=== PATIENT | female | born 1955 | race Caucasian/White ===

== ENCOUNTER 2017-04-26 01:03 | Inpatient (IN) | payer OTHER ==
--- NOTE | 2017-04-26 01:13 | PDOC ---
History of Present Illness - History of Present Illness Initial Comments: 04/26/17 01:[address] Sawyer. <Bobby Marquez - Last Filed: 04/26/17 01:30> <Mehnaz Erickson - Last Filed: 04/26/17 01:44> - General Stated Complaint: POSSIBLE STROKE Time Seen by Provider: 04/26/17 01:03 Past History <Bobby Marquez - Last Filed: 04/26/17 01:30> - Past Medical History Asthma: Yes Diabetes: Yes HTN: Yes Thyroid Disease: Yes (HYPO.) - Immunization History Td Vaccination: No TDAP Vaccination: No Immunization Up to Date: No - Suicide/Smoking/Psychosocial Hx Smoking History: Current some day smoker Number of Cigarettes Smoked Daily: 2 'Breaking Loose' booklet given: 02/10/15 Hx Alcohol Use: No Drug/Substance Use Hx: No Substance Use Type: None <Mehnaz Erickson - Last Filed: 04/26/17 01:44> - Past Medical History Allergies/Adverse Reactions: Allergies Allergy/AdvReac Type Severity Reaction Status Date / Time No Known Allergies Allergy Verified 04/26/17 01:14 Home Medications: Ambulatory Orders Atorvastatin Ca [Lipitor] 20 mg PO HS 01/29/17 Calcium (Oyster Shell) [Os-Malcolm 500Mg -] 500 mg PO DAILY 01/29/17 Canagliflozin [Invokana] 300 mg PO DAILY 01/29/17 Famotidine [Pepcid -] 40 mg PO DAILY 01/29/17 Gabapentin 600 mg PO TID 01/29/17 Ibuprofen 800 mg PO TID PRN 01/29/17 Lamotrigine 150 mg PO DAILY 01/29/17 Liraglutide [Victoza -] 0.6 mg SQ DAILY@0700 01/29/17 Loratadine 10 mg PO DAILY 01/29/17 Losartan Potassium 100 mg PO DAILY 01/29/17 Metoclopramide HCl 10 mg PO DAILY 01/29/17 Omeprazole 40 mg PO DAILY 01/29/17 Topiramate 50 mg PO TID 01/29/17 Tramadol HCl 50 mg PO Q6H #15 tablet MDD 6 01/29/17 Trazodone HCl 100 mg PO DAILY PRN 01/29/17 Venlafaxine HCl ER [Effexor Xr -] 150 mg PO DAILY 01/29/17 *Physical Exam - Vital Signs Last Vital Signs Temp Pulse Resp BP Pulse Ox 75 14 84/61 98 04/26/17 01:14 04/26/17 01:14 04/26/17 01:14 04/26/17 01:14 <Bobby Marquez - Last Filed: 04/26/17 01:30> ED Treatment Course - LABORATORY CBC & Chemistry Diagram: 04/26/17 01:31 04/26/17 01:31 - RADIOLOGY Radiology Studies Ordered: Category Date Time Status HEAD CT (STROKE) [CT] Stat CT Scan 04/26/17 01:03 Ordered <Mehnaz Erickson - Last Filed: 04/26/17 01:44>
[2017-04-26] MEDS ORDERED: SODIUM CHLORIDE 0.9% 1000 ML INFUS.BAG IV ONE (01:30)
[2017-04-26] MEDS ORDERED: METOCLOPRAMIDE HCL INJECTION 10 MG/2 ML VIAL IVPB ONE (01:36)
[2017-04-26 01:38] LABS: BASOPHIL 0.8 % (0-2.0); EOSINOPHIL 0.1 % (0-4.5); MCH 27.7 pg (25.7-33.7); MCHC 32.9 g/dl (32.0-36.0); MEAN CELL VOLUME 84.3 fl (80-96); MEAN PLT VOLUME 8.4 fl (7.5-11.1); NEUTROPHILS 46.4 % (42.8-82.8); PLATELET COUNT 222 K/MM3 (134-434); RDW 13.6 % (11.6-15.6); WHITE BLOOD COUNT 12.5 K/mm3 (4.0-10.0)
--- NOTE | 2017-04-26 01:42 | PDOC ---
History of Present Illness <Mehnaz Erickson - Last Filed: 04/26/17 04:57> - General History Source: Patient Exam Limitations: No Limitations - History of Present Illness Initial Comments: 04/26/17 01:57 The patient is a 61 y/o female with PMH HTN, HLD, DM, depression, who presents to the ED via EMS s/p syncopal episode. Patient fell asleep at around 11:30 last night. She woke up around 12:30 AM because her stomach was hurting. She went to the kitchen to drink milk, but does not remember anything after. Patient was then found unconscious on the floor by her son, who called in EMS. Patient is complaining of headaches, dizziness, slurred speech, dry mouth, and nausea on presentation. Patient denies head trauma, back pain, neck pain. Patient states she took 1 pill of Trazodone to fall asleep today. She states she had throbbing pain behind left eye at around 9:30 PM last night. Wednesday and Wednesday she spent the day at daughters house, and did not take her HTN medications. Patient denies chest pain, SOB, fever, chills, vomiting, diarrhea. Patient denies dysuria, frequency, hematuria. Patient denies sick contacts, recent travels. Patient denies drinking alcohol. She denies drug usage. She denies smoking cigarettes. <Bobby Marquez - Last Filed: 04/26/17 05:52> - General Chief Complaint: CVA/TIA Stated Complaint: POSSIBLE STROKE Time Seen by Provider: 04/26/17 01:03 Past History - Past Medical History Asthma: Yes Diabetes: Yes HTN: Yes Thyroid Disease: Yes (HYPO.) - Immunization History Td Vaccination: No TDAP Vaccination: No Immunization Up to Date: No - Suicide/Smoking/Psychosocial Hx Smoking History: Current some day smoker Have you smoked in the past 12 months: No Number of Cigarettes Smoked Daily: 2 Information on smoking cessation initiated: No 'Breaking Loose' booklet given: 02/10/15 Hx Alcohol Use: No Drug/Substance Use Hx: No Substance Use Type: None <Mehnaz Erickson - Last Filed: 04/26/17 04:57> <Bobby Marquez - Last Filed: 04/26/17 05:52> - Past Medical History Allergies/Adverse Reactions: Allergies Allergy/AdvReac Type Severity Reaction Status Date / Time No Known Allergies Allergy Verified 04/26/17 01:14 Home Medications: Ambulatory Orders Atorvastatin Ca [Lipitor] 20 mg PO HS 01/29/17 Calcium (Oyster Shell) [Os-Malcolm 500Mg -] 500 mg PO DAILY 01/29/17 Canagliflozin [Invokana] 300 mg PO DAILY 01/29/17 Famotidine [Pepcid -] 40 mg PO DAILY 01/29/17 Gabapentin 600 mg PO TID 01/29/17 Ibuprofen 800 mg PO TID PRN 01/29/17 Lamotrigine 150 mg PO DAILY 01/29/17 Liraglutide [Victoza -] 0.6 mg SQ DAILY@0700 01/29/17 Loratadine 10 mg PO DAILY 01/29/17 Losartan Potassium 100 mg PO DAILY 01/29/17 Metoclopramide HCl 10 mg PO DAILY 01/29/17 Omeprazole 40 mg PO DAILY 01/29/17 Topiramate 50 mg PO TID 01/29/17 Tramadol HCl 50 mg PO Q6H #15 tablet MDD 6 01/29/17 Trazodone HCl 100 mg PO DAILY PRN 01/29/17 Venlafaxine HCl ER [Effexor Xr -] 150 mg PO DAILY 01/29/17 Review of Systems - Review of Systems Able to Perform ROS?: Yes Comments:: 04/26/17 01:57 GENERAL/CONSTITUTIONAL: No fever or chills. No weakness. HEAD, EYES, EARS, NOSE AND THROAT: No change in vision. No ear pain or discharge. No sore throat. CARDIOVASCULAR: No chest pain or shortness of breath. RESPIRATORY: No cough, wheezing, or hemoptysis. GASTROINTESTINAL: + nausea No vomiting, diarrhea or constipation. GENITOURINARY: No dysuria, frequency, or change in urination. MUSCULOSKELETAL: No joint or muscle swelling or pain. No neck or back pain. SKIN: No rash NEUROLOGIC: + headache. + slurred speech. + loss of consciousness. No vertigo, or change in strength/sensation. ENDOCRINE: No increased thirst. No abnormal weight change. HEMATOLOGIC/LYMPHATIC: No anemia, easy bleeding, or history of blood clots. ALLERGIC/IMMUNOLOGIC: No hives or skin allergy. <Bobby Marquez - Last Filed: 04/26/17 05:52> *Physical Exam - Vital Signs Last Vital Signs Temp Pulse Resp BP Pulse Ox 75 14 84/61 98 04/26/17 01:14 04/26/17 01:14 04/26/17 01:14 04/26/17 01:14 <Mehnaz Erickson - Last Filed: 04/26/17 04:57> - Vital Signs Last Vital Signs Temp Pulse Resp BP Pulse Ox 75 14 84/61 98 04/26/17 01:14 04/26/17 01:14 04/26/17 01:14 04/26/17 01:14 - Physical Exam Comments: 04/26/17 01:59 GENERAL: Awake, alert, and fully oriented, in no acute distress HEAD: No signs of trauma EYES: EOMI, sclera anicteric, conjunctiva clear. Lateral nystagmus of her eyes. ENT: Patients tongue is very dry. Auricles normal inspection, hearing grossly normal, nares patent, oropharynx clear without exudates. NECK: Normal ROM, supple, no lymphadenopathy, JVD, or masses LUNGS: Breath sounds equal, clear to auscultation bilaterally. No wheezes, and no crackles HEART: Currently patient is very hypotensive. Systolic pressure of low 70s. no murmurs, rubs or gallops ABDOMEN: Soft, nontender, normoactive bowel sounds. No guarding, no rebound. No masses EXTREMITIES: Normal range of motion, no edema. No clubbing or cyanosis. No cords, erythema, or tenderness NEUROLOGICAL: On finger to nose exam: was slow and wobbly. Slurring speech a bit. Cranial nerves II through XII grossly intact. Normal gait SKIN: Warm, Dry, normal turgor, no rashes or lesions noted. <Bobby Marquez - Last Filed: 04/26/17 05:52> NIH Stroke Scale - Last Known Well Date/Time & Onset Date Last Known Well: 04/25/17 Time Last Known Well: 23:00 - Initial Evaluation Level of consciousness: Alert Ask patient the month and their age: Answers both correctly Ask patient to open & close eyes; make fist and let go: Obeys both correctly Best gaze (horizontal eye movement): Normal Visual field testing: No visual field loss Facial paresis (Show teeth/raise eyebrows/close eyes tight): Normal symmetrical movement Motor Function: Left Arm: Normal Motor Function: Right Arm: Normal (extends arm 90 (or 45) degrees for 10 seconds without drift Motor Function: Left Leg: Normal (extends leg 30 degrees for 5 seconds without drift) Motor Function: Right Leg: Normal (extends leg 30 degrees for 5 seconds without drift) Limb Ataxia: Present in two limbs Sensory(Use pinprick test arms,legs,trunk,face/side to side): Normal Best language (Describe picture, name items, read sentences): No Aphasia Dysarthria (read several words): Mild to moderate slurring of words Extinction and Inattention: No abnormality - Total Score NIH Stroke Scale Score: 3 <Mehnaz Erickson - Last Filed: 04/26/17 04:57> Critical Care Time/MDM Note - Medical Decision Making Note: 04/26/17 01:45 04/26/17 01:34 Patient Name: JULIAN CHAMPION THIS IS A PRELIMINARYREPORT FROM IMAGING PHARMACEUTICAL DEVELOPMENT TECHNICIAN EXAM: CT brain without contrast IMAGES: 406 INDICATION: Rule out CVA DATE OF SERVICE: 2017-04-26 01:04:09 COMPARISON: none FINDINGS: The ventricular system is midline and nondilated. The sulcal pattern is normal for the patient's age. There is no bleed, mass, extra-axial fluid collection or mass effect. No skull fracture or skull lesion is identified. Complete opacification of bilateral maxillary sinuses is consistent with severe sinusitis. The bilateral mastoid air cells are clear. IMPRESSION: No evidence of acute intracranial pathology. Severe bilateral maxillary sinusitis. THIS DOCUMENT HAS BEEN ELECTRONICALLY SIGNED Oscar Bertrand MD 04/26/2017 01:27 DARINEL Ashby Please call Imaging Sales Ledger Clerk [phone] ([phone]) with questions 04/26/17 01:42 I paged neuro; no response Dr. Stafford called back and we discussed that this is likely not a stroke. However, pt may have a cerebellar infarc affecting her balance I think. She certainly has cellulitis. She also has slurred speech which perhaps can be explained by her dry tongue. Pt was found on the floor in the ER her systolic pressure is low 70s after 1L IVF; After 2L Systolic is 90s. Pt may have vasovagaled or gone down due to dehydration. <Mehnaz Erickson - Last Filed: 04/26/17 04:57> - Medical Decision Making Note: 04/26/17 01:[address] Stafford at 1:30. Paged Dr. Stafford second call at 1:48. 04/26/17 02:[address] Stafford at 02:17. (Neuro on-call). 04/26/17 03:[address] Danny Robertson. 04/26/17 03:[address] Danny Robertson, second call. <Bobby Marquez - Last Filed: 04/26/17 05:52> Discharge Disposition - Discharge Dispostion Last Admission D/C Date: 07/24/99 Admit: Yes <Mehnaz Erickson - Last Filed: 04/26/17 04:57> <Bobby Marquez - Last Filed: 04/26/17 05:52> - Diagnosis Maxillary sinusitis, Slurring of speech, Dehydration, Hypotension, Syncope and collapse, Cerebrovascular accident (CVA) - Discharge Dispostion Condition at time of disposition: Guarded
[2017-04-26] MEDS ORDERED: METOCLOPRAMIDE HCL INJECTION 10 MG/2 ML VIAL ONE (01:59)
[2017-04-26 02:01] LABS: INR 1.04 (0.82-1.09); PROTHROMBIN TIME (PATIENT) 11.5 SEC (9.98-11.88)
[2017-04-26 02:02] LABS: ALBUMIN 3.2 g/dl (3.4-5.0); ANION GAP 12 (8-16); CALCIUM 8.1 mg/dL (8.5-10.1); CO2 21 mmol/L (21-32); CREATININE 1.2 mg/dL (0.55-1.02); GLUCOSE,RANDOM 115 mg/dL (74-106); SGOT/AST 13 U/L (15-37); SGPT/ALT 18 U/L (12-78)
[2017-04-26 02:04] LABS: ALK PHOS 77 U/L (45-117); BILIRUBIN,TOTAL 0.3 mg/dL (0.2-1.0); TOT PROT 5.9 g/dl (6.4-8.2)
[2017-04-26] MEDS ORDERED: MAGNESIUM SULF 50% (8.12 MEQ/2 ML-1 GM VIAL) IVPB ONE (02:23)
[2017-04-26] MEDS ORDERED: MAGNESIUM SULF 50% (8.12 MEQ/2 ML-1 GM VIAL) ONE (02:44)
[2017-04-26] MEDS ORDERED: KCL 10 MEQ IVPB 300 ML IVPB ONE (02:44)
[2017-04-26] MEDS ORDERED: KCL 10 MEQ IVPB 100 ML IVPB ONE (03:10)
[2017-04-26] MEDS: KCL 10 MEQ IVPB 100 ML IVPB SCH ×3 (03:12→06:16)
[2017-04-26 05:46] LABS: URINE MARIJUANA THC NEGATIVE ng/ml (CUTOFF=50)
[2017-04-26 06:53] VITALS: BMI 30.1
[2017-04-26] MEDS ORDERED: FLU VACCINE QUAD 60 MCG/0.5 ML (MDV 17-18) IM ONE (09:00)
[2017-04-26 09:19] LABS: BASOPHIL 0.4 % (0-2.0); EOSINOPHIL 0.1 % (0-4.5); MCH 27.1 pg (25.7-33.7); MCHC 32.2 g/dl (32.0-36.0); MEAN CELL VOLUME 84.4 fl (80-96); MEAN PLT VOLUME 8.5 fl (7.5-11.1); NEUTROPHILS 60.2 % (42.8-82.8); PLATELET COUNT 228 K/MM3 (134-434); RDW 13.9 % (11.6-15.6); WHITE BLOOD COUNT 11.4 K/mm3 (4.0-10.0)
[2017-04-26 09:47] LABS: ALBUMIN 3.2 g/dl (3.4-5.0); ANION GAP 6 (8-16); CHOLESTEROL 176 mg/dL (50-200); CO2 24 mmol/L (21-32); CREATININE 0.8 mg/dL (0.55-1.02); GLUCOSE,RANDOM 108 mg/dL (74-106); SGOT/AST 14 U/L (15-37); SGPT/ALT 18 U/L (12-78)
[2017-04-26 09:49] LABS: ALK PHOS 83 U/L (45-117); BILIRUBIN,TOTAL 0.2 mg/dL (0.2-1.0); CPK 125 IU/L (26-192); TOT PROT 6.2 g/dl (6.4-8.2); TROPONIN I < 0.02 ng/ml (0.00-0.05)
[2017-04-26 09:57] LABS: URINE APPEARANCE CLEAR; URINE BILIRUBIN NEGATIVE (NEGATIVE); URINE BLOOD NEGATIVE (NEGATIVE); URINE COLOR COLORLESS; URINE GLUCOSE (UA) 3+ (NEGATIVE); URINE KETONE NEGATIVE (NEGATIVE); URINE LEUK ESTERASE NEGATIVE (NEGATIVE); URINE NITRITE NEGATIVE (NEGATIVE); URINE PROTEIN NEGATIVE (NEGATIVE); URINE UROBILINOGEN NEGATIVE mg/dL (0.2-1.0)
--- NOTE | 2017-04-26 09:58 | CON.NEURO ---
Consult - History of Present Illness History of Present Illness: 61 y/o female with PMH HTN, HLD, DM, bipolar who presents to the ED via EMS s/p syncopal episode. Patient fell asleep at around 11:30 last night. She woke up around 12:30 AM because her stomach was hurting. She went to the kitchen to drink milk, but does not remember anything after. Patient was then found unconscious on the floor by her son, who called in EMS. Patient is complaining of headaches, dizziness, slurred speech, dry mouth, and nausea on presentation. Patient denies head trauma, back pain, neck pain. Patient states she took 1 pill of Trazodone to fall asleep today. She states she had throbbing pain behind left eye at around 9:30 PM last night. Wednesday and Wednesday she spent the day at [facility] house, and did not take her HTN medications. no hx of seziures, stakes trazodone and effexor. HD CT (-) - Alcohol/Substance Use Hx Alcohol Use: No - Smoking History Smoking history: Current some day smoker Have you smoked in the past 12 months: No Aproximately how many cigarettes per day: 2 Home Medications - Allergies Allergies/Adverse Reactions: Allergies Allergy/AdvReac Type Severity Reaction Status Date / Time No Known Allergies Allergy Verified 04/26/17 01:14 - Home Medications Home Medications: Ambulatory Orders Atorvastatin Ca [Lipitor] 20 mg PO HS 01/29/17 Calcium (Oyster Shell) [Os-Malcolm 500Mg -] 500 mg PO DAILY 01/29/17 Canagliflozin [Invokana] 300 mg PO DAILY 01/29/17 Famotidine [Pepcid -] 40 mg PO DAILY 01/29/17 Gabapentin 600 mg PO TID 01/29/17 Ibuprofen 800 mg PO TID PRN 01/29/17 Lamotrigine 150 mg PO DAILY 01/29/17 Liraglutide [Victoza -] 0.6 mg SQ DAILY@0700 01/29/17 Loratadine 10 mg PO DAILY 01/29/17 Losartan Potassium 100 mg PO DAILY 01/29/17 Metoclopramide HCl 10 mg PO DAILY 01/29/17 Omeprazole 40 mg PO DAILY 01/29/17 Topiramate 50 mg PO TID 01/29/17 Tramadol HCl 50 mg PO Q6H #15 tablet MDD 6 01/29/17 Trazodone HCl 100 mg PO DAILY PRN 01/29/17 Venlafaxine HCl ER [Effexor Xr -] 150 mg PO DAILY 01/29/17 Physical Exam-Neuro Vital Signs: Vital Signs Temperature 97.6 F 04/26/17 06:00 Pulse Rate 74 04/26/17 06:00 Respiratory Rate 18 04/26/17 06:00 Blood Pressure 96/61 04/26/17 06:00 O2 Sat by Pulse Oximetry (%) 98 04/26/17 05:57 Constitutional: Yes: Well Nourished, No Distress Neck: Yes: WNL Cardiovascular: Yes: Regular Rate and Rhythm Respiratory: Yes: CTA Bilaterally Labs: CBC, BMP 04/26/17 08:36 04/26/17 08:36 INR, PTT INR 1.04 (0.82-1.09) 04/26/17 01:31 - Neuro Exam Level Of Consciousness: Yes: Alert, Oriented to Person (EOMI, no facial, no dysrthria, no focal motor weakness, no drift, no ataxia , giat not tested; ) Imaging - Results Cat Scan: Report Reviewed, Image Reviewed Problem List - Problems (1) Hypotension Code(s): I95.9 - HYPOTENSION, UNSPECIFIED (2) Slurring of speech Code(s): R47.81 - SLURRED SPEECH (3) Syncope and collapse Code(s): R55 - SYNCOPE AND COLLAPSE Assessment/Plan 61 y/o female with PMH HTN, HLD, DM, bipolar admitted for syncope, noted to have low BP; ? RX intercations, tox (-); fu psych rec, nonfocal exam-- do not see evidence of new stroke event. BP remains low, FU orthostatics; consider cardiology input. Dr tSafford
[2017-04-26] MEDS: INSULIN SLIDING SCALE (NOVOLOG) 1 VIAL SQ SCH ×4 (09:59→21:01)
[2017-04-26] MEDS: lamoTRIgine 100 MG TABLET (FP) PO SCH (10:00)
[2017-04-26] MEDS: RANITIDINE HCL 150 MG TABLET (FP) PO SCH (10:01)
[2017-04-26] MEDS: PANTOPRAZOLE 40 MG TABLET (FP) PO SCH (10:01)
[2017-04-26] MEDS: ASPIRIN COATED 81 MG TABLET.EC PO SCH (10:01)
[2017-04-26] MEDS: HEPARIN NA (PORCINE) 5,000 UNITS/ML 1ML VIAL SQ SCH ×2 (10:02→21:01)
--- NOTE | 2017-04-26 10:31 | PN ---
Progress Note (short form) - Note Progress Note: ID consult dictated imp/reccd 61 year old female admitted from home after being found on floor unconscious by her son. SHe recalls getting up out of bed and having stomach pain. She went to the kitchen and got milk to drink -that is all she remembers. she is alert now and very sleepy denies fevers/chills no nausea or vomiting no diarrhea was well yesterday no chest pain no history of heart disease no change in her meds recent trip to the [facility] lives with her son denies nasal drainage or facial pain ct scan with bilateral maxillary sinusiits history of HTN- BP is low ua is negative blood cultures have been sent no documented fevers syncope of unclear etiology hypotension - ?cause, start fluids doubt sepsis very sleepy but was in ED all night, quite alert and approppriate when awoken bilateral maxillary sinusitis- suggest ENT evaluation, start unasyn neurology and cardiology evaluation reports HIV/Hep C negative reports recent admission 2 weeks ago to [facility] for cellulitis reports trip to [facility] February 23 Problem List - Problems (1) Syncope and collapse Code(s): R55 - SYNCOPE AND COLLAPSE (2) Maxillary sinusitis Code(s): J32.0 - CHRONIC MAXILLARY SINUSITIS
[2017-04-26] MEDS ORDERED: SODIUM CHLORIDE 250 ML IV ONE (10:35)
--- NOTE | 2017-04-26 10:53 | EKG ---
Test Reason : Blood Pressure : / mmHG Vent. Rate : 079 BPM Atrial Rate : 079 BPM P-R Int : 192 ms QRS Dur : 070 ms QT Int : 392 ms P-R-T Axes : 056 040 058 degrees QTc Int : 449 ms NORMAL SINUS RHYTHM NORMAL ECG WHEN COMPARED WITH ECG OF 26-APR-2017 01:17, NO SIGNIFICANT CHANGE WAS FOUND Confirmed by ADAMA ARMENDARIZ MD ([id number]) on 04/26/2017 10:53:13 AM Referred By: SABAS DONNELLY Confirmed By:ADAMA ARMENDARIZ MD
--- NOTE | 2017-04-26 11:29 | CONS ---
DATE OF CONSULTATION: HISTORY: This is a 61-year-old woman. She has a past medical history of hypertension, diabetes, and bipolar disorder. She is followed by Dr. Robertson as an outpatient. She notes yesterday ever she went to bed, got up because she had stomach pain, went to the kitchen to drink milk, and has no memory of what happened after that. Her son found her unconscious on the floor. He called EMS, and she was brought to the emergency room. She was alert but drowsy in the emergency room. She was noted to be hypotensive with a blood pressure of 84/61. She had a BUN 21, creatinine 1.2 with a potassium of 3.1. She was given IV fluids and electrolyte repletion. She had a head CT done to rule out stroke, but she was felt to have some slurred speech, and she was noted to have bilateral maxillary sinusitis. I was asked to see her. She is currently easily arousable, appropriate when aroused. Able to give history but very sleepy and falling back to sleep. She reports being well. She gives the history of having gone to the kitchen and having gotten some milk to drink. She denies any recent chills. She has no nausea or vomiting. She has no diarrhea. She has no chest pain. She has no history of heart disease. There have been no changes in her medications. She reports she recently had an outpatient MRI and was referred by Dr. Robertson to [facility], and she saw a neurologist there. There have been no changes in her medications recently. She does not recall any extra or skipped doses. She was on a recent trip to the [facility]. She lives with her son. She denies any nasal drainage or facial pain at this time. PAST MEDICAL HISTORY: Notable for a history of asthma, diabetes, hypertension, hypothyroidism. She has a history as well of depression, bipolar disorder. ALLERGIES: She has no known drug allergies. MEDICATIONS: As an outpatient include venlafaxine, losartan, vitamin D, Lamictal, loratadine, calcium, metoclopramide, ibuprofen, atorvastatin, amlodipine, gabapentin, Trazodone, Imvokana, Victoza, and pantoprazole. FAMILY HISTORY: Noncontributory. SOCIAL HISTORY: She smokes occasionally several cigarettes. She lives with her son. She was recently in the [facility]. She denies any sick contacts. REVIEW OF SYSTEMS: She denies headache, visual changes. She has no facial pain. She has no nasal discomfort or drainage or facial discomfort. She has no cough. PHYSICAL EXAMINATION: Vital Signs: Temperature 97.6, pulse 74, blood pressure 96/61, respiratory rate 18, weight 175. HEENT: She is normocephalic. Her eyes are anicteric. She has no pharyngitis. She has no thrush. Neck: Supple. Lungs: Clear to auscultation. Heart: Regular rate and rhythm. Abdomen: Soft and nontender. Extremities: Without edema. She has no rash. LABORATORIES: Notable this morning, she came in at 1:30. Labs repeated at 8 this morning reveals a white count 11.4, hemoglobin 12.2, platelets 228. Her BUN and creatinine are now BUN 18 and creatinine 0.8. They were BUN 20 and creatinine 1.2 on admission. Her potassium is 4. Urinalysis is 3+ glucose. Otherwise, negative. Urine toxicity is negative. Urine blood cultures were sent. Chest x-ray shows weak inspiratory effort. Head CT shows no evidence of acute intracranial pathology with complete opacification of the maxillary sinuses. In summary, this is a 61-year-old woman with syncope of unclear etiology, hypotension, again, of unclear etiology. Would continue fluids at this time. Doubt sepsis. She is very sleepy but was in the ER all night. She is quite alert and appropriate when awoken. Bilateral maxillary sinusitis. She denies any symptoms related to this, which is unusual, but I would suggest we have ENT evaluate her. Neurology and Cardiology to see as well. I spoke to her as well about HIV and hepatitis C testing both of which she has had as an outpatient, and she claims that she is HIV and hepatitis C negative. DEVANG PA M.D. [id number]
[2017-04-26] MEDS ORDERED: SODIUM CHLORIDE 1,000 ML IV ONE (11:40)
--- NOTE | 2017-04-26 11:53 | CON.PSY ---
Psychiatry Consult Chief Complaint: I have Bipolar I take lot of meds. I fell few times. - Previous Psychiatric Treatment Outpatient: Less than 6 mos ago Inpatient: One prior admission - Previous Substance Abuse Treatment Outpatient: None Inpatient: None - Reason for Previous Treatment Reason for Previous Treatment: Biploar Illness - Current Medications Current Medications: Active Medications Aspirin (Ecotrin -) 81 mg PO DAILY [facility] Last Admin: 04/26/17 10:01 Dose: 81 mg Atorvastatin Calcium (Lipitor -) 20 mg PO HS [facility] Gabapentin (Neurontin -) 600 mg PO TID [facility] Heparin Sodium (Porcine) (Heparin -) 5,000 unit SQ BID [facility] Last Admin: 04/26/17 10:02 Dose: 5,000 unit Ampicillin Sodium/Sulbactam (Sodium 1.5 gm/ Sodium Chloride) 100 mls @ 200 mls/ hr IVPB Q6H-IV [facility] Sodium Chloride (Normal Saline -) 1,000 mls @ 100 mls/hr IV ONCE ONE Stop: 04/26/17 21:39 Insulin Aspart (Novolog Vial Sliding Scale -) 1 vial SQ ACHS [facility] PRN Reason: Protocol Last Admin: 04/26/17 09:59 Dose: Not Given Lamotrigine (Lamictal -) 150 mg PO DAILY [facility] Last Admin: 04/26/17 10:00 Dose: 150 mg Pantoprazole Sodium (Protonix -) 40 mg PO DAILY [facility] Last Admin: 04/26/17 10:01 Dose: 40 mg Ranitidine HCl (Zantac -) 300 mg PO DAILY [facility] Last Admin: 04/26/17 10:01 Dose: 300 mg Topiramate (Topamax -) 50 mg PO TID [facility] Venlafaxine HCl (Effexor Xr -) 150 mg PO DAILY [facility] - Allergies Allergies: Allergies Allergy/AdvReac Type Severity Reaction Status Date / Time No Known Allergies Allergy Verified 04/26/17 01:14 - Current Living Status Usual Living Arrangement: With Significant Other - Current Mental Status Evaluation Appearance: Well Groomed Attitude: Cooperative - Affect Affect: Full Range Appropriateness: Appropriate to Content - Mood Mood: Euthymic - Speech/Language Expressive: Coherent - Psychomotor Activity Psychomotor Activity: Normal - Thought Process Thought Process: Intact - Thought Content Hallucinations: Absent Delusions: Absent - Self Perception Self Perception: No Impairment - Cognition Attention: Alert Orientation: Time Memory, Immediate Recall: Intact Memory, Short Term: 2/3 Memory, Remote with Promptin/3 - Concentration Serial Sevens Intact: No Simple Calculations Intact: No - Abstraction Proverb Interpretation: Intact Judgement: Intact - Insight Insight: Intact - Impulse Control Impulse Control: Good Control - Suicidal Ideation Suicidal Ideation: No - Homicidal Ideation Homicidal Ideation: No Assessment/Plan 1) No changes required in Psych meds. 2) Follow up with Psych MD for rene adjustment after Cardiac work up. 3) discjharge when m,edically stable.
[2017-04-26] MEDS: VENLAFAXINE HCL 75 MG E.R. CAPSULES (FP) PO SCH (12:31)
[2017-04-26] MEDS: AMPICILLIN NA/SULBACTAM NA 1.5 GM in SODIUM CHLORIDE 100 ML IVPB SCH ×3 (12:31→20:59)
[2017-04-26] MEDS: GABAPENTIN 300 MG CAPSULE (FP) PO SCH ×2 (14:20→21:00)
[2017-04-26] MEDS: TOPIRAMATE 25 MG TABLET (FP) PO SCH ×2 (14:26→21:02)
--- NOTE | 2017-04-26 16:16 | HP ---
Admitting History and Physical - Primary Care Physician PCP: Abel Jacskon - Admission Chief Complaint: SYNCOPE History of Present Illness: The patient is a 61 y/o female with PMH HTN, HLD, DM, depression, who presents to the ED via EMS s/p syncopal episode. Patient fell asleep at around 11:30 last night. She woke up around 12:30 AM because her stomach was hurting. She went to the kitchen to drink milk, but does not remember anything after. Patient was then found unconscious on the floor by her son, who called in EMS. Patient is complaining of headaches, dizziness, slurred speech, dry mouth, and nausea on presentation. Patient denies head trauma, back pain, neck pain. Patient states she took 1 pill of Trazodone to fall asleep today. She states she had throbbing pain behind left eye at around 9:30 PM last night. Wednesday and Wednesday she spent the day at daughters house, and did not take her HTN medications. Patient denies chest pain, SOB, fever, chills, vomiting, diarrhea. Patient denies dysuria, frequency, hematuria. Patient denies sick contacts, recent travels. Patient denies drinking alcohol. She denies drug usage. She denies smoking cigarettes. History Source: Patient, Medical Record Limitations to Obtaining History: Clinical Condition, Poor Historian - Past Medical History Psych: Yes: Bipolar, Depression - Smoking History Smoking history: Current some day smoker Have you smoked in the past 12 months: No Aproximately how many cigarettes per day: 2 - Alcohol/Substance Use Hx Alcohol Use: No Home Medications - Allergies Allergies/Adverse Reactions: Allergies Allergy/AdvReac Type Severity Reaction Status Date / Time No Known Allergies Allergy Verified 04/26/17 01:14 - Home Medications Home Medications: Ambulatory Orders Atorvastatin Ca [Lipitor] 20 mg PO HS 01/29/17 Calcium (Oyster Shell) [Os-Malcolm 500Mg -] 500 mg PO DAILY 01/29/17 Canagliflozin [Invokana] 300 mg PO DAILY 01/29/17 Famotidine [Pepcid -] 40 mg PO DAILY 01/29/17 Gabapentin 600 mg PO TID 01/29/17 Ibuprofen 800 mg PO TID PRN 01/29/17 Lamotrigine 150 mg PO DAILY 01/29/17 Liraglutide [Victoza -] 0.6 mg SQ DAILY@0700 01/29/17 Loratadine 10 mg PO DAILY 01/29/17 Losartan Potassium 100 mg PO DAILY 01/29/17 Metoclopramide HCl 10 mg PO DAILY 01/29/17 Omeprazole 40 mg PO DAILY 01/29/17 Topiramate 50 mg PO TID 01/29/17 Tramadol HCl 50 mg PO Q6H #15 tablet MDD 6 01/29/17 Trazodone HCl 100 mg PO DAILY PRN 01/29/17 Venlafaxine HCl ER [Effexor Xr -] 150 mg PO DAILY 01/29/17 Review of Systems - Review of Systems Constitutional: reports: Weakness Eyes: reports: No Symptoms HENT: reports: No Symptoms Neck: reports: No Symptoms Cardiovascular: reports: No Symptoms Respiratory: reports: No Symptoms Gastrointestinal: reports: No Symptoms Genitourinary: reports: No Symptoms Musculoskeletal: reports: No Symptoms Integumentary: reports: No Symptoms Neurological: reports: Dizziness Endocrine: reports: No Symptoms Hematology/Lymphatic: reports: No Symptoms Psychiatric: reports: Anxiety, Depression, Panic Physical Examination Vital Signs: Vital Signs Temperature 98.2 F 04/26/17 10:00 Pulse Rate 78 04/26/17 10:00 Respiratory Rate 18 04/26/17 10:00 Blood Pressure 96/66 04/26/17 10:00 O2 Sat by Pulse Oximetry (%) 98 04/26/17 10:00 Constitutional: Yes: Moderate Distress Eyes: Yes: WNL HENT: Yes: WNL Neck: Yes: WNL Cardiovascular: Yes: WNL Respiratory: Yes: WNL Gastrointestinal: Yes: WNL Renal/: Yes: WNL Musculoskeletal: Yes: Muscle Weakness Extremities: Yes: WNL Edema: No Peripheral Pulses WNL: Yes Integumentary: Yes: WNL Wound/Incision: Yes: Clean/Dry Neurological: Yes: Other ...Motor Strength: WNL Psychiatric: Yes: Other Labs: CBC, BMP 04/26/17 08:36 04/26/17 08:36 Imaging - Results Cat Scan: Report Reviewed Problem List - Problems (1) Dehydration Code(s): E86.0 - DEHYDRATION (2) Hypotension Code(s): I95.9 - HYPOTENSION, UNSPECIFIED Qualifiers: Hypotension type: unspecified hypotension type Qualified Code(s): I95.9 - Hypotension, unspecified (3) Maxillary sinusitis Code(s): J32.0 - CHRONIC MAXILLARY SINUSITIS Qualifiers: Chronicity: acute (4) Slurring of speech Code(s): R47.81 - SLURRED SPEECH (5) Syncope and collapse Code(s): R55 - SYNCOPE AND COLLAPSE (6) Headache Code(s): R51 - HEADACHE Qualifiers: Headache type: unspecified Headache chronicity pattern: acute headache Intractability: not intractable Qualified Code(s): R51 - Headache Assessment/Plan PT EVAL NEUROLOGY EVAL CAROTID DOPPLER ECHO FOR SYNCOPE WORKUP IVF FALL RISK AWAIT WORKUP RESULTS
[2017-04-26] MEDS ORDERED: SODIUM CHLORIDE 1,000 ML IV SCH (16:30)
[2017-04-26] MEDS ORDERED: ONDANSETRON *ODT* 4 MG TABLET SL PRN (20:43)
[2017-04-26] MEDS ORDERED: PT OWN MED DRAWER 7, Y5N ONE (20:50)
[2017-04-26] MEDS: ATORVASTATIN CA 20 MG TABLET (FP) PO SCH (21:00)
[2017-04-27] MEDS ORDERED: PT OWN MED DRAWER 7, Y5N ONE ×5 (02:52→21:02)
[2017-04-27] MEDS: AMPICILLIN NA/SULBACTAM NA 1.5 GM in SODIUM CHLORIDE 100 ML IVPB SCH ×4 (02:58→21:04)
[2017-04-27] MEDS: GABAPENTIN 300 MG CAPSULE (FP) PO SCH ×3 (05:38→21:04)
[2017-04-27] MEDS: TOPIRAMATE 25 MG TABLET (FP) PO SCH ×3 (05:38→21:05)
[2017-04-27] MEDS: INSULIN SLIDING SCALE (NOVOLOG) 1 VIAL SQ SCH ×4 (06:17→21:13)
[2017-04-27] MEDS: RANITIDINE HCL 150 MG TABLET (FP) PO SCH (09:21)
[2017-04-27] MEDS: lamoTRIgine 100 MG TABLET (FP) PO SCH (09:21)
[2017-04-27] MEDS: HEPARIN NA (PORCINE) 5,000 UNITS/ML 1ML VIAL SQ SCH ×2 (09:21→21:05)
[2017-04-27] MEDS: ASPIRIN COATED 81 MG TABLET.EC PO SCH (09:22)
[2017-04-27] MEDS: PANTOPRAZOLE 40 MG TABLET (FP) PO SCH (09:22)
[2017-04-27] MEDS: VENLAFAXINE HCL 75 MG E.R. CAPSULES (FP) PO SCH (09:23)
[2017-04-27] MEDS: KETOROLAC TROMETHAMINE 30 MG/1 ML VIAL IVPUSH PRN ×2 (12:34→19:05)
[2017-04-27] MEDS ORDERED: SODIUM CHLORIDE NASAL SPRAY 44 ML BOTTLE NS PRN (15:23)
--- NOTE | 2017-04-27 15:23 | PN ---
Progress Note, Physician Chief Complaint: AWAKE C/O HEADACHE - Current Medication List Current Medications: Active Medications Aspirin (Ecotrin -) 81 mg PO DAILY [facility] Last Admin: 04/27/17 09:22 Dose: 81 mg Atorvastatin Calcium (Lipitor -) 20 mg PO HS [facility] Last Admin: 04/26/17 21:00 Dose: 20 mg Gabapentin (Neurontin -) 600 mg PO TID [facility] Last Admin: 04/27/17 13:00 Dose: 600 mg Heparin Sodium (Porcine) (Heparin -) 5,000 unit SQ BID [facility] Last Admin: 04/27/17 09:21 Dose: 5,000 unit Ampicillin Sodium/Sulbactam (Sodium 1.5 gm/ Sodium Chloride) 100 mls @ 200 mls/ hr IVPB Q6H-IV [facility] Last Admin: 04/27/17 14:45 Dose: 200 mls/hr Insulin Aspart (Novolog Vial Sliding Scale -) 1 vial SQ ACHS [facility] PRN Reason: Protocol Last Admin: 04/27/17 11:48 Dose: Not Given Ketorolac Tromethamine (Toradol Injection -) 30 mg IVPUSH Q6H PRN Stop: 05/02/17 11:58 Last Admin: 04/27/17 12:34 Dose: 30 mg Lamotrigine (Lamictal -) 150 mg PO DAILY [facility] Last Admin: 04/27/17 09:21 Dose: 150 mg Ondansetron HCl (Zofran Odt -) 8 mg SL Q6H PRN PRN Reason: NAUSEA AND/OR VOMITING Last Admin: 04/26/17 21:00 Dose: 8 mg Pantoprazole Sodium (Protonix -) 40 mg PO DAILY [facility] Last Admin: 04/27/17 09:22 Dose: 40 mg Ranitidine HCl (Zantac -) 300 mg PO DAILY [facility] Last Admin: 04/27/17 09:21 Dose: 300 mg Topiramate (Topamax -) 50 mg PO TID [facility] Last Admin: 04/27/17 13:00 Dose: 50 mg Venlafaxine HCl (Effexor Xr -) 150 mg PO DAILY [facility] Last Admin: 04/27/17 09:23 Dose: 150 mg - Objective Vital Signs: Vital Signs Temperature 97.9 F 04/27/17 14:17 Pulse Rate 90 04/27/17 14:17 Respiratory Rate 16 04/27/17 14:17 Blood Pressure 135/81 04/27/17 14:17 O2 Sat by Pulse Oximetry (%) 96 04/27/17 09:00 Constitutional: Yes: Mild Distress Eyes: Yes: WNL HENT: Yes: Hoarseness, Nasal Congestion, Rhinnorhea Neck: Yes: WNL Cardiovascular: Yes: WNL Respiratory: Yes: WNL Gastrointestinal: Yes: WNL Genitourinary: Yes: WNL Musculoskeletal: Yes: WNL Extremities: Yes: WNL Edema: No Peripheral Pulses WNL: Yes Integumentary: Yes: WNL Wound/Incision: Yes: Clean/Dry Neurological: Yes: Pre-Existing Deficit Psychiatric: Yes: Other Labs: CBC, BMP 04/26/17 08:36 04/26/17 08:36 INR, PTT INR 1.04 (0.82-1.09) 04/26/17 01:31 Problem List - Problems (1) Dehydration Code(s): E86.0 - DEHYDRATION (2) Hypotension Code(s): I95.9 - HYPOTENSION, UNSPECIFIED Qualifiers: Hypotension type: unspecified hypotension type Qualified Code(s): I95.9 - Hypotension, unspecified (3) Maxillary sinusitis Code(s): J32.0 - CHRONIC MAXILLARY SINUSITIS Qualifiers: Chronicity: chronic Qualified Code(s): J32.0 - Chronic maxillary sinusitis (4) Slurring of speech Code(s): R47.81 - SLURRED SPEECH (5) Syncope and collapse Code(s): R55 - SYNCOPE AND COLLAPSE (6) Headache Code(s): R51 - HEADACHE Qualifiers: Headache type: unspecified Headache chronicity pattern: acute headache Intractability: not intractable Qualified Code(s): R51 - Headache Assessment/Plan IV ABX NASAL SPRAYS ENT F/U AND ID CONSULT APPRECIATED DC PLANNING TOMORROW
[2017-04-27] MEDS: LORATADINE 10 MG TABLET PO SCH (15:56)
--- NOTE | 2017-04-27 16:44 | PN ---
Progress Note (short form) - Note Progress Note: much more alert complains of intermittent headache recent outpt MRI Vital Signs Period Temp Pulse Resp BP Sys/Hawkins Pulse Ox Last 24 Hr 97.9 F-98.8 F 8-90 16-18 116-135/71-84 96-96 cor-rrr lungs clear abd soft,nt ext no edema CBC, BMP 04/26/17 08:36 04/26/17 08:36 Microbiology 04/26/17 09:00 Urine - Urine Clean Catch Urine Culture - Final NO GROWTH OBTAINED 04/26/17 08:50 Blood - Peripheral Venous Blood Culture - Preliminary NO GROWTH OBTAINED AFTER 24 HOURS, INCUBATION TO CONTINUE FOR 4 DAYS. 04/26/17 08:36 Blood - Peripheral Venous Blood Culture - Preliminary NO GROWTH OBTAINED AFTER 24 HOURS, INCUBATION TO CONTINUE FOR 4 DAYS. a/p syncope of unclear etiology hypotension - resp;kathy doubt sepsis bilateral maxillary sinusitis- no facial pain, ENT evaluation, continue unasyn neurology and cardiology evaluation reports HIV/Hep C negative reports recent admission 2 weeks ago to [facility] for cellulitis reports trip to [facility] February 23 Problem List - Problems (1) Syncope and collapse Code(s): R55 - SYNCOPE AND COLLAPSE (2) Maxillary sinusitis Code(s): J32.0 - CHRONIC MAXILLARY SINUSITIS Qualifiers: Chronicity: acute
[2017-04-27] MEDS: FLUTICASONE PROP 0.05% 16 GM NASAL SPRAY NS SCH (17:22)
--- NOTE | 2017-04-27 18:47 | CON.ENT ---
Consult Consult Specialty:: ENT Referred by:: Dr. Powell Reason for Consultation:: maxillary sinusitis - History of Present Illness Chief Complaint: sinus problems History of Present Illness: 61 yo F admitted 04-26-17 for syncope, loss of consciousness, headache, dizziness Neurology consultation noted and workup in progress on head CT scan bilateral maxillary sinusitis noted further evaluation requested Pt does report chronic sinus problems on and off for many years. had nasal and possible sinus surgery ~30 yrs ago at [facility] ( [facility]) presently patient does not report any sinus pain or headache but chronic intermittent yellow and green drainage, smell sense is variable, no obstruction , no dental pain has been treated with antibiotics in past. presently reports postnasal drip pt reports a remote history of intranasal cocaine use, none for many years (her family does not know and pt does not want them to know) - History Source History Provided By: Patient, Medical Record Limitations to Obtaining History: No Limitations - Past Medical History Psych: Yes: Bipolar, Depression - Past Surgical History Additional Surgical History: nasal and/or sinus surgery in [facility] many years ago - Alcohol/Substance Use Hx Alcohol Use: No History of Substance Use: reports: Cocaine (in remote past, none for many years ) - Smoking History Smoking history: Current some day smoker Have you smoked in the past 12 months: No Aproximately how many cigarettes per day: 2 - Social History Usual Living Arrangement: With Significant Other Home Medications - Allergies Allergies/Adverse Reactions: Allergies Allergy/AdvReac Type Severity Reaction Status Date / Time No Known Allergies Allergy Verified 04/26/17 01:14 - Home Medications Home Medications: Ambulatory Orders Loratadine 10 mg PO DAILY 01/29/17 Atorvastatin Ca [Lipitor] 20 mg PO HS #0 tab 04/28/17 Calcium (Oyster Shell) [Os-Malcolm 500MG -] 500 mg PO DAILY #0 tab 04/28/17 Canagliflozin [Invokana] 300 mg PO DAILY #0 tab 04/28/17 Cefuroxime Axetil [Ceftin -] 500 mg PO BID #20 tablet 04/28/17 Fluticasone Prop 0.05% Nasal [Flonase -] 2 spray NS DAILY #1 spray 04/28/17 Gabapentin 600 mg PO TID #0 cap 04/28/17 Ibuprofen 800 mg PO TID PRN #0 tab 04/28/17 Lamotrigine 150 mg PO DAILY #0 tab 04/28/17 Liraglutide [Victoza -] 0.6 mg SQ DAILY@0700 #0 syr 04/28/17 Loratadine [Claritin -] 10 mg PO DAILY #30 tablet 04/28/17 Losartan Potassium 100 mg PO DAILY #0 tab 04/28/17 Methylprednisolone [Medrol -] 4 mg PO DAILY #6 tablet 04/28/17 Omeprazole 40 mg PO DAILY #0 cap 04/28/17 Ondansetron [Zofran Odt -] 8 mg SL Q6H PRN #30 tab 04/28/17 Pantoprazole Sodium [Protonix -] 40 mg PO DAILY #30 tab 04/28/17 Sodium Chloride Nasal [place] [[place] Nasal [place] -] 2 spray NS TID PRN #1 spray 04/28/17 Venlafaxine HCl ER [Effexor Xr -] 150 mg PO DAILY #0 cap 04/28/17 Physical Exam-ENT Vital Signs: Vital Signs Temperature 98.4 F 04/27/17 18:00 Pulse Rate 90 04/27/17 18:00 Respiratory Rate 17 04/27/17 18:00 Blood Pressure 143/85 04/27/17 18:00 O2 Sat by Pulse Oximetry (%) 96 04/27/17 09:00 Constitutional: Yes: Well Nourished, No Distress, Calm Head: Yes: WNL Face: Yes: WNL Eyes: Yes: WNL Nose: Yes: Septum Perforated Nasal Passage: Yes: Other (large septal perforation, small middle turbinates, ++ purulent drainage bilateral middle meati, drains into [employer], superior meati and turbinates not visualized, sphenoethmoid recesses not visible, no opolyps, posterior choanae patent) Oral/Pharynx: Yes: WNL Outer Ear: Yes: WNL Neck: Yes: WNL Respiratory: Yes: WNL Neurological: Yes: Alert, Oriented Imaging - Results Cat Scan: Report Reviewed, Image Reviewed (bilateral maxilary sinus opacification, ethmoid sinus mucosal thickening, large septal perforation) Problem List - Problems (1) Maxillary sinusitis Assessment/Plan: noted on CT scan long history reported active purulent drainage on nasal endoscopy Recommend: continue antibiotics x 10 days nasal saline spray - already ordered to office after discharge Thank you for consultation, Jean Giron MD FACS Code(s): J32.0 - CHRONIC MAXILLARY SINUSITIS Qualifiers: Chronicity: chronic Qualified Code(s): J32.0 - Chronic maxillary sinusitis
[2017-04-27] MEDS: ATORVASTATIN CA 20 MG TABLET (FP) PO SCH (21:05)
[2017-04-28] MEDS ORDERED: PT OWN MED DRAWER 7, Y5N ONE ×3 (02:59→09:35)
[2017-04-28] MEDS: AMPICILLIN NA/SULBACTAM NA 1.5 GM in SODIUM CHLORIDE 100 ML IVPB SCH ×2 (03:01→09:48)
[2017-04-28] MEDS: GABAPENTIN 300 MG CAPSULE (FP) PO SCH (05:38)
[2017-04-28] MEDS: TOPIRAMATE 25 MG TABLET (FP) PO SCH (05:39)
[2017-04-28] MEDS: INSULIN SLIDING SCALE (NOVOLOG) 1 VIAL SQ SCH ×2 (06:15→11:26)
[2017-04-28 06:40] VITALS: TEMP 97.3
--- NOTE | 2017-04-28 09:20 | PN ---
Progress Note (short form) - Note Progress Note: 61 y/o female with PMH HTN, HLD, DM, bipolar who presents to the ED via EMS s/p syncopal episode. Patient fell asleep at around 11:30 last night. She woke up around 12:30 AM because her stomach was hurting. She went to the kitchen to drink milk, but does not remember anything after. Patient was then found unconscious on the floor by her son, who called in EMS. Patient is complaining of headaches, dizziness, slurred speech, dry mouth, and nausea on presentation. Patient denies head trauma, back pain, neck pain. Patient states she took 1 pill of Trazodone to fall asleep today. She states she had throbbing pain behind left eye at around 9:30 PM last night. Wednesday and Wednesday she spent the day at daughters house, and did not take her HTN medications. no hx of seziures, stakes trazodone and effexor. HD CT (-) FU : MISHRA + seen by ENT , + sinusitis with purulent DC , started on ABX - Alcohol/Substance Use Hx Alcohol Use: No - Smoking History Smoking history: Current some day smoker Have you smoked in the past 12 months: No Aproximately how many cigarettes per day: 2 Home Medications - Allergies Allergies/Adverse Reactions: Allergies Allergy/AdvReac Type Severity Reaction Status Date / Time No Known Allergies Allergy Verified 04/26/17 01:14 - Home Medications Home Medications: Ambulatory Orders Atorvastatin Ca [Lipitor] 20 mg PO HS 01/29/17 Calcium (Oyster Shell) [Os-Malcolm 500Mg -] 500 mg PO DAILY 01/29/17 Canagliflozin [Invokana] 300 mg PO DAILY 01/29/17 Famotidine [Pepcid -] 40 mg PO DAILY 01/29/17 Gabapentin 600 mg PO TID 01/29/17 Ibuprofen 800 mg PO TID PRN 01/29/17 Lamotrigine 150 mg PO DAILY 01/29/17 Liraglutide [Victoza -] 0.6 mg SQ DAILY@0700 01/29/17 Loratadine 10 mg PO DAILY 01/29/17 Losartan Potassium 100 mg PO DAILY 01/29/17 Metoclopramide HCl 10 mg PO DAILY 01/29/17 Omeprazole 40 mg PO DAILY 01/29/17 Topiramate 50 mg PO TID 01/29/17 Tramadol HCl 50 mg PO Q6H #15 tablet MDD 6 01/29/17 Trazodone HCl 100 mg PO DAILY PRN 01/29/17 Venlafaxine HCl ER [Effexor Xr -] 150 mg PO DAILY 01/29/17 Physical Exam-Neuro Vital Signs: Vital Signs Temperature 97.3 F L 04/28/17 06:00 Pulse Rate 79 04/28/17 06:00 Respiratory Rate 20 04/28/17 06:00 Blood Pressure 140/79 04/28/17 06:00 O2 Sat by Pulse Oximetry (%) 96 04/27/17 21:00 Constitutional: Yes: Well Nourished, No Distress Neck: Yes: WNL Cardiovascular: Yes: Regular Rate and Rhythm Respiratory: Yes: CTA Bilaterally Labs: CBCD WBC 11.4 K/mm3 (4.0-10.0) H 04/26/17 08:36 RBC 4.49 M/mm3 (3.60-5.2) 04/26/17 08:36 Hgb 12.2 GM/dL (10.7-15.3) 04/26/17 08:36 Hct 37.9 % (32.4-45.2) 04/26/17 08:36 MCV 84.4 fl (80-96) 04/26/17 08:36 MCHC 32.2 g/dl (32.0-36.0) 04/26/17 08:36 RDW 13.9 % (11.6-15.6) 04/26/17 08:36 Plt Count 228 K/MM3 (134-434) 04/26/17 08:36 MPV 8.5 fl (7.5-11.1) 04/26/17 08:36 CMP Sodium 143 mmol/L (136-145) 04/26/17 08:36 Potassium 4.0 mmol/L (3.5-5.1) D 04/26/17 08:36 Chloride 113 mmol/L (98-107) H 04/26/17 08:36 Carbon Dioxide 24 mmol/L (21-32) 04/26/17 08:36 Anion Gap 6 (8-16) L 04/26/17 08:36 BUN 18 mg/dL (7-18) 04/26/17 08:36 Creatinine 0.8 mg/dL (0.55-1.02) D 04/26/17 08:36 Creat Clearance w eGFR > 60 (>60) 04/26/17 08:36 Calcium 8.0 mg/dL (8.5-10.1) L 04/26/17 08:36 Total Bilirubin 0.2 mg/dL (0.2-1.0) D 04/26/17 08:36 AST 14 U/L (15-37) L 04/26/17 08:36 ALT 18 U/L (12-78) 04/26/17 08:36 Alkaline Phosphatase 83 U/L (45-117) 04/26/17 08:36 Total Protein 6.2 g/dl (6.4-8.2) L 04/26/17 08:36 Albumin 3.2 g/dl (3.4-5.0) L 04/26/17 08:36 - Neuro Exam Level Of Consciousness: Yes: Alert, Oriented to Person (EOMI, no facial, no dysrthria, no focal motor weakness, no drift, no ataxia , giat not tested; ) Imaging - Results Cat Scan: Report Reviewed, Image Reviewed Problem List - Problems (1) Hypotension Code(s): I95.9 - HYPOTENSION, UNSPECIFIED (2) Slurring of speech Code(s): R47.81 - SLURRED SPEECH (3) Syncope and collapse Code(s): R55 - SYNCOPE AND COLLAPSE Assessment/Plan 61 y/o female with PMH HTN, HLD, DM, bipolar admitted for syncope, noted to have low BP; ? RX intercations, tox (-); fu psych rec, nonfocal exam-- do not see evidence of new stroke event. MISHRA likely secondary to sinusitis -- agree with ABX and medrol dose mike she can FU me as outpt [phone] Dr Stafford Problem List - Problems (1) Hypotension Code(s): I95.9 - HYPOTENSION, UNSPECIFIED Qualifiers: Hypotension type: unspecified hypotension type Qualified Code(s): I95.9 - Hypotension, unspecified (2) Slurring of speech Code(s): R47.81 - SLURRED SPEECH (3) Syncope and collapse Code(s): R55 - SYNCOPE AND COLLAPSE
[2017-04-28] MEDS: KETOROLAC TROMETHAMINE 30 MG/1 ML VIAL IVPUSH PRN (09:47)
[2017-04-28] MEDS: RANITIDINE HCL 150 MG TABLET (FP) PO SCH (09:51)
[2017-04-28] MEDS: VENLAFAXINE HCL 75 MG E.R. CAPSULES (FP) PO SCH (09:51)
[2017-04-28] MEDS: lamoTRIgine 100 MG TABLET (FP) PO SCH (09:51)
[2017-04-28] MEDS: ASPIRIN COATED 81 MG TABLET.EC PO SCH (09:51)
[2017-04-28] MEDS: HEPARIN NA (PORCINE) 5,000 UNITS/ML 1ML VIAL SQ SCH (09:51)
[2017-04-28] MEDS: LORATADINE 10 MG TABLET PO SCH (09:51)
[2017-04-28] MEDS: PANTOPRAZOLE 40 MG TABLET (FP) PO SCH (09:51)
--- NOTE | 2017-04-28 09:51 | DS ---
Physical Examination Vital Signs: Vital Signs Temperature 97.3 F L 04/28/17 06:00 Pulse Rate 79 04/28/17 06:00 Respiratory Rate 20 04/28/17 06:00 Blood Pressure 140/79 04/28/17 06:00 O2 Sat by Pulse Oximetry (%) 96 04/27/17 21:00 Findings/Remarks: AWAKE ALERT FEELING BETTER Constitutional: Yes: No Distress Eyes: Yes: WNL HENT: Yes: WNL Neck: Yes: WNL Cardiovascular: Yes: WNL Respiratory: Yes: WNL Gastrointestinal: Yes: WNL, Distention Renal/: Yes: WNL Musculoskeletal: Yes: WNL Extremities: Yes: WNL Edema: No Peripheral Pulses WNL: Yes Integumentary: Yes: WNL Wound/Incision: Yes: Clean/Dry Neurological: Yes: WNL ...Motor Strength: WNL Psychiatric: Yes: WNL Labs: CBC, BMP 04/26/17 08:36 04/26/17 08:36 Discharge Summary Reason For Visit: MAXILLARY SINUSITIS SLURRING OF SPEECH Current Active Problems Cerebrovascular accident (CVA) (Acute) Dehydration (Acute) Hypotension (Acute) Maxillary sinusitis (Acute) Slurring of speech (Acute) Syncope and collapse (Acute) Procedures: Principal: CT HEAD Other Procedures: ECHO/CAROTID Hospital Course: ADMITTED FOR SYNCOPE FOUND WITH SEVRE ACUTE MAXILLARY SINUSITIS, SYNCOPE AND CARDIAC WORKUP NO ACUTE CHANGES, NEYROLOGY WORKUP NEGATIVE, Condition: Improved - Instructions Diet, Activity, Other Instructions: LOW SODIUM SEE DR SHIN WednesdayMay 10AM Disposition: VNS/HOME HEALTH CARE - Home Medications Comprehensive Discharge Medication List: Ambulatory Orders Atorvastatin Ca [Lipitor] 20 mg PO HS 01/29/17 Calcium (Oyster Shell) [Os-Malcolm 500Mg -] 500 mg PO DAILY 01/29/17 Canagliflozin [Invokana] 300 mg PO DAILY 01/29/17 Famotidine [Pepcid -] 40 mg PO DAILY 01/29/17 Gabapentin 600 mg PO TID 01/29/17 Ibuprofen 800 mg PO TID PRN 01/29/17 Lamotrigine 150 mg PO DAILY 01/29/17 Liraglutide [Victoza -] 0.6 mg SQ DAILY@0700 01/29/17 Loratadine 10 mg PO DAILY 01/29/17 Losartan Potassium 100 mg PO DAILY 01/29/17 Metoclopramide HCl 10 mg PO DAILY 01/29/17 Omeprazole 40 mg PO DAILY 01/29/17 Topiramate 50 mg PO TID 01/29/17 Tramadol HCl 50 mg PO Q6H #15 tablet MDD 6 01/29/17 Trazodone HCl 100 mg PO DAILY PRN 01/29/17 Venlafaxine HCl ER [Effexor Xr -] 150 mg PO DAILY 01/29/17
[2017-04-28] MEDS: FLUTICASONE PROP 0.05% 16 GM NASAL SPRAY NS SCH (09:52)
[2017-04-28] MEDS ORDERED: methylPREDNISolone 4 MG TABLET PO SCH (10:00)
[2017-04-28 10:14] VITALS: BP 128/86
[2017-04-28] MEDS ORDERED: methylPREDNISolone 8 MG TABLET PO ONE (10:15)
[2017-04-28] MEDS ORDERED: CEFUROXIME AXETIL 500 MG TABLET PO SCH (22:00)
[2017-05-03 00:21] VITALS: PULSE 86
--- NOTE | 2017-05-04 09:49 | EKG ---
Test Reason : Blood Pressure : / mmHG Vent. Rate : 072 BPM Atrial Rate : 072 BPM P-R Int : 194 ms QRS Dur : 074 ms QT Int : 406 ms P-R-T Axes : 061 046 061 degrees QTc Int : 444 ms NORMAL SINUS RHYTHM NORMAL ECG WHEN COMPARED WITH ECG OF 17-JUL-1999 14:38, NO SIGNIFICANT CHANGE WAS FOUND Confirmed by GERALD QUINTERO MD ([id number]) on 05/04/2017 9:49:02 AM Referred By: Confirmed By:GERALD QUINTERO MD
== END 2017-04-28 14:22 | disposition home health service (06) | DRG 113 ==
LOC: JER 01:03 → JERBED 04:03 → J4S 06:11
PROVIDERS: ADMIT Family Medicine; ATTEND Family Medicine
DX: J32.0 Chronic maxillary sinusitis (principal); I95.9 Hypotension, unspecified; R55 Syncope and collapse; E11.9 Type 2 diabetes mellitus without complications; I10 Essential (primary) hypertension; E78.5 Hyperlipidemia, unspecified; F31.89 Other bipolar disorder; F17.210 Nicotine dependence, cigarettes, uncomplicated; R47.81 Slurred speech; F32.89 Other specified depressive episodes; E86.0 Dehydration; R51 Headache
CPT/HCPCS: 36415; 70450-TC; 71010-TC; 80053; 80061; 80307; 81003; 83036; 83721; 84484; 85025; 85610; 85730; 87040; 87086; 90688; 93005; 93010; 93306-TC; 93880-TC; 97116-GP; 97161-GP; 99282-25; 99285-25; G0008; J1644

== ENCOUNTER 2017-09-07 10:19 | Emergency (ER) | payer OTHER ==
[2017-09-07 11:00] VITALS: BP 103/76; PULSE 78; TEMP 97.8; BMI 27.6
[2017-09-07] MEDS ORDERED: KETOROLAC TROMETHAMINE 60 MG/2 ML VIAL IM ONE (12:05)
--- NOTE | 2017-09-07 12:05 | PDOC ---
History of Present Illness - General Chief Complaint: Pain Stated Complaint: BACK AND NECK PAIN Time Seen by Provider: 09/07/17 11:47 History Source: Patient Exam Limitations: No Limitations - History of Present Illness Initial Comments: 09/07/17 11:56 The patient is a 61 y/o female with PMH HTN, bipolar disorder, HLD, DM, migraines, depression, who presents to the ED for headache, neck pain, right lateral shoulder pain unable to lift right arm without pain, history of bilateral rotator cuff injury. Patient reports also falling multiple times not recently injuring right shoulder. Patient is requesting x-ray and pain medication. Denies any numbness or tingling, no neurological deficits. Patient denies chest pain, SOB, fever, chills, vomiting, diarrhea. Patient denies dysuria, frequency, hematuria. Patient denies sick contacts, recent travels. Patient denies drinking alcohol. She denies drug usage. She denies smoking cigarettes. Medications: [See medication list] Family History: Non-contributory Review of Systems GENERAL/CONSTITUTIONAL: [No fever or chills. No weakness. No weight change.] HEAD, EYES, EARS, NOSE AND THROAT: [No change in vision. No ear pain or discharge. No sore throat. ] CARDIOVASCULAR: [No chest pain or shortness of breath.] RESPIRATORY: [No cough, wheezing, or hemoptysis.] GASTROINTESTINAL: [No nausea, vomiting, diarrhea or constipation. No rectal bleeding.] GENITOURINARY: [No dysuria, frequency, or change in urination.] MUSCULOSKELETAL: [No joint or muscle swelling or pain. Neck and right shoulder pain SKIN AND BREASTS: [No rash or easy bruising.] NEUROLOGIC: + headache, no vertigo, loss of consciousness, or loss of sensation. ] ENDOCRINE: [No increased thirst. No abnormal weight change.] HEMATOLOGIC/LYMPHATIC: [No anemia, easy bleeding, or history of blood clots.] ALLERGIC/IMMUNOLOGIC: [No hives or skin allergy. No latex allergy.] Physical Exam: GENERAL: [The patient is awake, alert, and fully oriented, in no acute distress. ] HEAD: [Normal with no signs of trauma.] EYES: [Pupils equal, round and reactive to light, extraocular movements intact, sclera anicteric, conjunctiva clear.] ENT: [Ears normal, nares patent, oropharynx clear without exudates. Moist mucous membranes. No uvula deviation] NECK: [Normal range of motion, no pain on direct palpation of cervical spine. Supple without lymphadenopathy, JVD, or masses. No step offs.] LUNGS: [Breath sounds equal, clear to auscultation bilaterally. No wheezes, and no crackles.] HEART: [Regular rate and rhythm, normal S1 and S2 without murmur, rub or gallop. ] ABDOMEN: [Soft, nontender, normoactive bowel sounds. No guarding, no rebound. No masses. No bruising or abrasions] MUSCULOSKELETAL: [Normal range of motion with associated pain to right shoulder, , no edema. No clubbing or cyanosis. No cords, erythema, or tenderness. No CVA Tenderness with fist.] NEUROLOGICAL: [Cranial nerves II through XII grossly intact. Normal speech, normal gait. Romberg is negative, no neurological deficits.] PSYCH: [Normal mood, normal affect.] SKIN: [Warm, Dry, normal turgor, no rashes or lesions noted.] 09/07/17 12:09 Past History - Past Medical History Allergies/Adverse Reactions: Allergies Allergy/AdvReac Type Severity Reaction Status Date / Time No Known Allergies Allergy Verified 09/07/17 10:45 Home Medications: Ambulatory Orders Atorvastatin Ca [Lipitor] 20 mg PO HS #0 tab 04/28/17 Calcium (Oyster Shell) [Os-Malcolm 500MG -] 500 mg PO DAILY #0 tab 04/28/17 Canagliflozin [Invokana] 300 mg PO DAILY #0 tab 04/28/17 Fluticasone Prop 0.05% Nasal [Flonase -] 2 spray NS DAILY #1 spray 04/28/17 Gabapentin 600 mg PO TID #0 cap 04/28/17 Ibuprofen 800 mg PO TID PRN #0 tab 04/28/17 Lamotrigine 150 mg PO DAILY #0 tab 04/28/17 Liraglutide [Victoza -] 0.6 mg SQ DAILY@0700 #0 syr 04/28/17 Loratadine [Claritin -] 10 mg PO DAILY #30 tablet 04/28/17 Losartan Potassium 100 mg PO DAILY #0 tab 04/28/17 Methylprednisolone [Medrol -] 4 mg PO DAILY #6 tablet 04/28/17 Omeprazole 40 mg PO DAILY #0 cap 04/28/17 Ondansetron [Zofran Odt -] 8 mg SL Q6H PRN #30 tab 04/28/17 Pantoprazole Sodium [Protonix -] 40 mg PO DAILY #30 tab 04/28/17 Sodium Chloride Nasal [place] [[place] Zoe Nasal Zoe -] 2 spray NS TID PRN #1 spray 04/28/17 Venlafaxine HCl ER [Effexor Xr -] 150 mg PO DAILY #0 cap 04/28/17 Amox-Tr/K Cl [Augmentin 875-125mg Tablet -] 1 tab PO BID 08/30/17 Lidocaine 5% Patch [Lidoderm Patch -] 1 patch TP DAILY #7 patch 09/07/17 Oxycodone HCl/Acetaminophen [Endocet 5-325 Tablet] 1 each PO QID #8 tablet MDD 4 09/07/17 Asthma: Yes COPD: No Diabetes: Yes HTN: Yes Hypercholesterolemia: Yes Thyroid Disease: Yes (HYPO.) - Surgical History Appendectomy: Yes Cholecystectomy: Yes Orthopedic Surgery: Yes (rotator cuff cyst removal) - Immunization History Td Vaccination: No TDAP Vaccination: No Immunization Up to Date: No - Suicide/Smoking/Psychosocial Hx Smoking History: Current some day smoker Have you smoked in the past 12 months: No Number of Cigarettes Smoked Daily: 1 Cigars Per Day: 0 Information on smoking cessation initiated: No 'Breaking Loose' booklet given: 04/26/17 Hx Alcohol Use: No Drug/Substance Use Hx: No Substance Use Type: None Hx Substance Use Treatment: No *Physical Exam - Vital Signs Last Vital Signs Temp Pulse Resp BP Pulse Ox 97.8 F 78 18 103/76 98 09/07/17 10:40 09/07/17 10:40 09/07/17 10:40 09/07/17 10:40 09/07/17 10:40 Medical Decision Making - Medical Decision Making 09/07/17 12:12 A/P: Patient with chronic neck and right lateral shoulder pain. Is requesting x- rays and pain medication I spoke to Dr. Robertson who states that this pain is chronic in nature. Patient has continues complaint of same, was supposed to be seen at neurology but was unable to get an appointment until the . Patient reports having "brain falling" I have discussed this with Dr. Robertson who states there is no evidence of brain injury or history in her records there. 09/07/17 13:58 X-ray were performed there is status post distal Acrimoplasty of the right shoulder, mild glenohumeral degenerative joint changes, prominent multilevel cervical degenerative disc and facet joint changes and marked right C4-C5 and mild to moderate right C5-C6 foraminal stenosis. He needs to follow up with neurology. And chronic pain management. Patient reports that she has no pain medication at home and asked a prescription plan reviewed This report was requested by: Astrid Patrick | Reference #: [id number] You have not added a MARGRET number. Keeping your MARGRET number(s) up to date on the My MARGRET Numbers page will enable the separation of your prescriptions from others ' in the search results. Others' Prescriptions Patient Name: Phylicia Alonso Date: 1955 Address: [address] [place] [address] Sex: Female Rx Written Rx Dispensed Drug Quantity Days Supply Prescriber Name 07/19/2017 08/18/2017 tramadol hcl 50 mg tablet 60 20 Frank, Isabella 08/09/2017 08/10/2017 endocet 5-325 tablet 24 8 Allen Lynch MD 05/05/2017 07/12/2017 tramadol hcl 50 mg tablet 120 30 RobertsonDanny MD 05/05/2017 06/10/2017 tramadol hcl 50 mg tablet 120 30 RobertsonDanny MD 05/05/2017 05/06/2017 tramadol hcl 50 mg tablet 120 30 RobertsonDanny MD 03/18/2017 04/07/2017 nucynta er 150 mg tablet 60 30 RobertsonDanny MD 03/18/2017 03/18/2017 tramadol hcl 50 mg tablet 90 30 RobertsonDanny MD 01/14/2017 01/18/2017 nucynta er 150 mg tablet 60 30 RobertsonDanny MD 01/14/2017 01/15/2017 tramadol hcl 50 mg tablet 90 30 RobertsonDanny MD 08/12/2016 11/30/2016 tramadol hcl 50 mg tablet 90 30 Frank, Isabella , V 11/12/2016 11/13/2016 nucynta er 150 mg tablet 60 30 RobertsonDanny MD 08/12/2016 10/14/2016 tramadol hcl 50 mg tablet 90 30 Frank, Isabella , V 09/24/2016 09/25/2016 nucynta er 150 mg tablet 60 30 Isabella Marie , V 08/12/2016 09/14/2016 tramadol hcl 50 mg tablet 90 30 Isabella Marie , V Patient Name: Phylicia Alonso Date: 1955 Address: [place] [address] Sex: Female Rx Written Rx Dispensed Drug Quantity Days Supply Prescriber Name 06/11/2016 11/17/2016 phenobarbital 16.2 mg tablet 90 30 LanRuben elkins MD 10/15/2016 10/16/2016 oxycodone-acetaminophen 5-325 mg tab 60 8 [facility] 10/16/2016 10/16/2016 oxycontin 10 mg tablet 14 7 Nam Boyd 06/11/2016 09/29/2016 phenobarbital 16.2 mg tablet 90 30 LanRuben elkins MD Patient was given last prescription for Endocet on 08/09 I will give more Endocet today, patient will need to follow-up. I discussed the physical exam findings, ancillary test results and final diagnoses with the patient. I answered all of the patient's questions. The patient was satisfied with the care received and felt comfortable with the discharge plan and treatment plan. The patient will call s to arrange follow-up and will return to the Emergency Department with any new, persistent or worsening symptoms. *DC/Admit/Observation/Transfer Diagnosis at time of Disposition: Chronic pain Qualifiers: Chronic pain type: other chronic pain Qualified Code(s): G89.29 - Other chronic pain - Discharge Dispostion Disposition: HOME Condition at time of disposition: Stable - Prescriptions Prescriptions: Lidocaine 5% Patch [Lidoderm Patch -] 1 patch TP DAILY #7 patch Oxycodone HCl/Acetaminophen [Endocet 5-325 Tablet] 1 each PO QID #8 tablet MDD 4 - Referrals Referrals: Vikas Clifton MD [Staff Physician] - ( of this month) Rodney Fortune MD [Staff Physician] - - Patient Instructions Additional Instructions: Please follow-up with your appointment with Dr. Clifton on September 28 Recommend follow-up with chronic pain management - Post Discharge Activity
[2017-09-07] MEDS ORDERED: KETOROLAC TROMETHAMINE 60 MG/2 ML VIAL ONE (12:07)
== END 2017-09-07 14:15 | disposition home or self-care (01) ==
LOC: JERFT 10:19
PROC: 3E0233Z Introduction of Anti-inflammatory into Muscle, Percutaneous Approach (ICD-10-PCS; principal; 2017-09-07)
DX: M54.2 Cervicalgia (principal); M25.511 Pain in right shoulder; G89.29 Other chronic pain; I10 Essential (primary) hypertension; E78.00 Pure hypercholesterolemia, unspecified; E11.9 Type 2 diabetes mellitus without complications; Z79.84 Long term (current) use of oral hypoglycemic drugs; E03.9 Hypothyroidism, unspecified; G43.909 Migraine, unspecified, not intractable, without status migrainosus
CPT/HCPCS: 72050-TC-FY; 73030-TC-RT-FY; 96372; 99281-25

== ENCOUNTER 2017-12-13 18:26 | Emergency (ER) | payer OTHER ==
[2017-12-13 19:02] VITALS: BMI 26.6
[2017-12-13] MEDS ORDERED: SODIUM CHLORIDE 1,000 ML IV ONE (19:32)
[2017-12-13] MEDS ORDERED: METOCLOPRAMIDE HCL INJECTION 10 MG/2 ML VIAL IVPUSH ONE (19:32)
--- NOTE | 2017-12-13 19:32 | PDOC ---
History of Present Illness - General History Source: Patient Exam Limitations: No Limitations - History of Present Illness Initial Comments: 12/13/17 22:56 The patient is a 62 year old female, with a significant past medical history of HTN, bipolar disorder, HLD, DM, migraines, depression who presents to the emergency department with intermittent headache for the past several days. Patient reports headache began on Wednesday which initially subsided however returned carlos. Patient describes frontal throbbing headache, 5/10 in severity, associated with nausea, lightheadedness and L arm tingling. Patient took Tramadol and Reglan and reports moderate relief this morning but headache came back. Patient reports headache is slightly worse than prior episodes and presents to the ED for further evaluation. Patient also notes L sided sharp chest pain that lasted for several seconds last night, which resolved today and has not recurred. Patient denies palpitations, diaphoresis or dizziness. Patient denies fever, chills, abdominal pain, diarrhea or constipation. Patient denies dysuria, frequency, urgency or hematuria. Patient denies sick contacts or recent travel. Allergies: NKA Past surgical history: Appendectomy, Cholecystectomy Social history: denies etoh, smoking, recreational drug use PCP: Dr. Danny Robertson Neuro: Junaidkani <Norma Munoz - Last Filed: 12/13/17 22:56> - General History Source: Patient Exam Limitations: No Limitations <Jt Diaz - Last Filed: 12/13/17 23:16> - General Chief Complaint: Headache Stated Complaint: POSSIBLE CVA Time Seen by Provider: 12/13/17 19:30 Past History <Norma Munoz - Last Filed: 12/13/17 22:56> - Past Medical History Asthma: Yes COPD: No Diabetes: Yes HTN: Yes Hypercholesterolemia: Yes Thyroid Disease: Yes (HYPO.) - Surgical History Appendectomy: Yes Cholecystectomy: Yes Orthopedic Surgery: Yes (rotator cuff cyst removal) - Immunization History Td Vaccination: No TDAP Vaccination: No Immunization Up to Date: No - Suicide/Smoking/Psychosocial Hx Smoking History: Former smoker Have you smoked in the past 12 months: No Number of Cigarettes Smoked Daily: 1 Cigars Per Day: 0 Information on smoking cessation initiated: No 'Breaking Loose' booklet given: 04/26/17 Hx Alcohol Use: No Drug/Substance Use Hx: No Substance Use Type: None Hx Substance Use Treatment: No <Joe,Jt - Last Filed: 12/13/17 23:16> - Past Medical History Allergies/Adverse Reactions: Allergies Allergy/AdvReac Type Severity Reaction Status Date / Time No Known Allergies Allergy Verified 12/13/17 18:55 Home Medications: Ambulatory Orders Atorvastatin Ca [Lipitor] 20 mg PO HS #0 tab 04/28/17 Calcium (Oyster Shell) [Os-Malcolm 500MG -] 500 mg PO DAILY #0 tab 04/28/17 Canagliflozin [Invokana] 300 mg PO DAILY #0 tab 04/28/17 Fluticasone Prop 0.05% Nasal [Flonase -] 2 spray NS DAILY #1 spray 04/28/17 Gabapentin 600 mg PO TID #0 cap 04/28/17 Ibuprofen 800 mg PO TID PRN #0 tab 04/28/17 Lamotrigine 150 mg PO DAILY #0 tab 04/28/17 Liraglutide [Victoza -] 0.6 mg SQ DAILY@0700 #0 syr 04/28/17 Loratadine [Claritin -] 10 mg PO DAILY #30 tablet 04/28/17 Losartan Potassium 100 mg PO DAILY #0 tab 04/28/17 Methylprednisolone [Medrol -] 4 mg PO DAILY #6 tablet 04/28/17 Omeprazole 40 mg PO DAILY #0 cap 04/28/17 Ondansetron [Zofran Odt -] 8 mg SL Q6H PRN #30 tab 04/28/17 Pantoprazole Sodium [Protonix -] 40 mg PO DAILY #30 tab 04/28/17 Sodium Chloride Nasal [place] [[place] Nasal [place] -] 2 spray NS TID PRN #1 spray 04/28/17 Venlafaxine HCl ER [Effexor Xr -] 150 mg PO DAILY #0 cap 04/28/17 Amox-Tr/K Cl [Augmentin 875-125mg Tablet -] 1 tab PO BID 08/30/17 Lidocaine 5% Patch [Lidoderm Patch -] 1 patch TP DAILY #7 patch 09/07/17 Oxycodone HCl/Acetaminophen [Endocet 5-325 Tablet] 1 each PO QID #8 tablet MDD 4 09/07/17 Review of Systems - Review of Systems Able to Perform ROS?: Yes Comments:: 12/13/17 22:56 CONSTITUTIONAL: No reported: Fever, Chills, Diaphoresis, Generalized Weakness, Malaise, Loss of Appetite HEENT: No reported: Rhinorrhea, Nasal Congestion, Throat Pain, Throat Swelling, Difficulty Swallowing, Mouth Swelling, Ear Pain, Eye Pain, Visual Changes CARDIOVASCULAR: +chest pain. No reported: Syncope, Palpitations, Irregular Heart Rate, Lightheadedness, Peripheral Edema RESPIRATORY: No reported: Cough, Shortness of Breath, SOB with Exertion, Orthopnea, Wheezing , Stridor, Hemoptysis GASTROINTESTINAL: No reported: Abdominal pain, Abdominal Distension, Nausea, Vomiting, Diarrhea, Constipation, Melena, Hematochezia GENITOURINARY: No reported: Dysuria, Frequency, Urgency, Hesitancy, Flank Pain, Genital Pain MUSCULOSKELETAL: No reported: Myalgia, Arthralgia, Joint Swelling, Back pain, Neck Pain SKIN: No reported: Rash, Itching, Pallor HEMATOLOGIC/IMMUNOLOGIC: No reported: Easy Bleeding, Easy Bruising, Lymphadenopathy, Frequent infections ENDOCRINE: No reported: Unexplained Weight Gain, Unexplained Weight Loss, Heat Intolerance , Cold Intolerance NEUROLOGIC: +headache. No reported: Focal Weakness, Paresthesias, Vertigo, Lightheadedness, Unsteady Gait, Seizure, Mental Status Changes, Incontinence PSYCHIATRIC: No reported: Anxiety, Depression <Norma Munoz - Last Filed: 12/13/17 22:56> *Physical Exam - Vital Signs Last Vital Signs Temp Pulse Resp BP Pulse Ox 97.9 F 92 H 16 140/90 98 12/13/17 18:32 12/13/17 18:32 12/13/17 18:32 12/13/17 18:32 12/13/17 18:32 - Physical Exam Comments: 12/13/17 22:56 GENERAL: The patient is awake, alert, and fully oriented, Nontoxic - in no acute distress. HEAD: Normocephalic, atraumatic. EYES: extraocular movements intact, sclera anicteric, conjunctiva clear. ENT: Normal voice, Moist mucous membranes. NECK: Normal range of motion, No JVD LUNGS: Breath sounds equal, clear to auscultation bilaterally. No wheezes, no rhonchi, no rales. HEART: Regular rate and rhythm, normal S1 and S2 without murmur, rub or gallop. ABDOMEN: Soft, nontender, normoactive bowel sounds. No guarding, no rebound. No masses. No CVA tenderness EXTREMITIES: Normal range of motion, no edema. No clubbing or cyanosis. No cords , erythema, or tenderness. PSYCH: Normal mood, normal affect. SKIN: Warm, Dry, normal turgor. NEURO: Mental status: The patient is oriented x3. Cranial nerves: Cranial nerves II through XII are intact Motor: The upper extremities are 5 over 5 in all muscle groups. The lower extremities are 5 over 5 in all muscle groups. Negative pronator drift Sensation: Sensation is intact to light touch throughout. romberg negative Cerebellar: Eigtcu-[id number]-[id number] is normal in both upper extremities. Gait: Normal. <Norma Munoz - Last Filed: 12/13/17 22:56> - Vital Signs Last Vital Signs Temp Pulse Resp BP Pulse Ox 97.9 F 92 H 16 140/90 98 12/13/17 18:32 12/13/17 18:32 12/13/17 18:32 12/13/17 18:32 12/13/17 18:32 <Jt Diaz - Last Filed: 12/13/17 23:16> Heart Score/ECG Review - ECG Impressions Comment:: 12/13/17 22:37 Twelve-lead EKG was performed and reviewed by me. There is normal sinus rhythm with a normal rate. Rate of 83 The axis is normal. The intervals are normal. There is normal R wave progression There are no ST or T wave abnormalities. Impression: Normal twelve-lead EKG <Jt Diaz - Last Filed: 12/13/17 23:16> ED Treatment Course - LABORATORY CBC & Chemistry Diagram: 12/13/17 20:10 12/13/17 20:10 - ADDITIONAL ORDERS Additional order review: Laboratory Results 12/13/17 12/13/17 20:10 20:10 Sodium 136 Potassium 4.9 Chloride 103 Carbon Dioxide 26 Anion Gap 7 L BUN 12 Creatinine 0.8 Creat Clearance w eGFR > 60 Random Glucose 88 Calcium 8.9 Total Bilirubin 0.3 D AST 35 ALT 27 Alkaline Phosphatase 50 Creatine Kinase 266 H Creatine Kinase Index 0.9 CK-MB (CK-2) 2.519 Troponin I < 0.02 Total Protein 7.3 Albumin 4.0 12/13/17 20:10 RBC 4.95 MCV 83.6 MCHC 32.6 RDW 14.4 MPV 8.2 Neutrophils % 48.7 Lymphocytes % 39.9 D Monocytes % 10.6 H Eosinophils % 0.1 Basophils % 0.7 - Medications Given in the ED: ED Medications Discontinued Medications Generic Name Dose Route Start Last Admin Trade Name Marleny PRN Reason Stop Dose Admin Sodium Chloride 1,000 mls @ 1,000 mls/hr 12/13/17 19:32 12/13/17 20:26 Normal Saline - IV 12/13/17 20:31 1,000 mls/hr .Q1H ONE Administration Metoclopramide HCl 10 mg 12/13/17 19:32 12/13/17 20:26 Reglan Injection - IVPUSH 12/13/17 19:33 10 mg ONCE ONE Administration <Norma Munoz - Last Filed: 12/13/17 22:56> - LABORATORY CBC & Chemistry Diagram: 12/13/17 20:10 12/13/17 20:10 <Jt Diaz - Last Filed: 12/13/17 23:16> Medical Decision Making - Medical Decision Making 12/13/17 19:50 62y F hx of htn, bipolar disorder, hld, dm, migranes, depression presents with complaint of intermittent pounding headache for the past fewa days. associated with nausea, lightheadedness, pt also worried about her bp as it was elevated when she checked it at home. pt also complaints of tingling in her extremities ( on gabapentin). pt also endorsed brief episode of sharp cp lasting for seconds last night without any recurrence since. denies assoc sob, palps, vision changes , vomiting, fc, neck pain, back pain, dairrhea, dysuria. suspect migraine headache will ck labs, cbc, cmp, trops for her episode of cp will give fluids, reglan will reassess will ckekg to screene for acs 12/13/17 22:26 The patient's blood work is unremarkable, the patient is feeling improved, awaiting for CT results if negative will discharge patient back to follow up with PMD. 12/13/17 23:09 ct head negative will dc the pt with pmd fu return precautions were discussed suspect migraine headache no focal neuro findings I discussed the physical exam findings, ancillary test results and final diagnoses with the patient. I answered all of the patient's questions. The patient was satisfied with the care received and felt comfortable with the discharge plan and treatment plan. The patient will call their primary care physician within 24 hours to arrange follow-up and will return to the Emergency Department with any new, persistent or worsening symptoms. A portion of this note was documented by scribe services under my direction. I have reviewed the details of the note, within reason, and agree with the documentation with the following case summary and management plan written by me <Jt Diaz - Last Filed: 12/13/17 23:16> *DC/Admit/Observation/Transfer - Attestations Scribe Attestion: 12/13/17 22:56 Documentation prepared by Norma Munoz, acting as lead medical technologist for Jt Diaz MD <Norma Munoz - Last Filed: 12/13/17 22:56> - Discharge Dispostion Decision to Admit order: No <Jt Diaz - Last Filed: 12/13/17 23:16> Diagnosis at time of Disposition: Headache Qualifiers: Headache type: tension-type Headache chronicity pattern: episodic headache Intractability: not intractable Qualified Code(s): G44.219 - Episodic tension- type headache, not intractable - Discharge Dispostion Disposition: HOME Condition at time of disposition: Improved - Referrals Referrals: Danny Robertson [Primary Care Provider] - - Patient Instructions Printed Discharge Instructions: DI for Migraine Additional Instructions: Regrese al servicio de urgencias de inmediato con CUALQUIER sntoma nuevo, persistente o que empeore incluyendo empeoramiento del dolor de jose angel, cambios en la visin, entumecimiento / hormigueo / debilidad, nuseas y vmitos persistentes o cualquier otra inquietud. Asegrate de obtener un sueo e hidratacin adecuados. DEBE llamar y hacer un seguimiento con villalobos mdico maana para dav mayor evaluaci n de anabell sntomas. Villalobos visita al departamento de emergencia no est completa sin un seguimiento con villalobos mdico para la reevaluacin. Los resultados fueron discutidos con usted. Asegrese de que villalobos mdico revise los resultados de villalobos evaluacin de emergencia. Si tuvo alguna radiografa adrian villalobos visita, fue nicholas de manera preliminar por m mismo, un radilogo la revisar y si hay algn hallazgo adicional, lo llamaremos. Return to the emergency department immediately with ANY new, persistent or worsening symptoms including worsening headache, vision changes, numbness/ tingling/weakness, persistent nausea and vomiting or any other concerns. Make sure you are getting adaqute sleep and hydration. You MUST call and follow up with your doctor tomorrow for further evaluation of your symptoms. Your emergency department visit is not complete without a followup with your doctor for reevaluation. Results were discussed with you. Please make sure your doctor reviews the results of your emergency evaluation. If you had any xrays during your visit, it was read preliminarily by myself, a Radiologist will review it and if there are any additional findings we will call you. Print Language: TAIWANESE - Post Discharge Activity
[2017-12-13] MEDS ORDERED: METOCLOPRAMIDE HCL INJECTION 10 MG/2 ML VIAL ONE (20:07)
[2017-12-13 20:30] LABS: BASO % 0.7 % (0-2.0); EOS % 0.1 % (0-4.5); HEMATOCRIT 41.4 % (32.4-45.2); HEMOGLOBIN 13.5 GM/dL (10.7-15.3); LYMPH % 39.9 % (8-40); MCH 27.2 pg (25.7-33.7); MCHC 32.6 g/dl (32.0-36.0); MEAN CELL VOLUME 83.6 fl (80-96); MEAN PLT VOLUME 8.2 fl (7.5-11.1); MONO % 10.6 % (3.8-10.2); NEUT % 48.7 % (42.8-82.8); PLATELET COUNT 279 K/MM3 (134-434); RBC 4.95 M/mm3 (3.60-5.2); RDW 14.4 % (11.6-15.6); WHITE BLOOD COUNT 9.2 K/mm3 (4.0-10.0)
[2017-12-13 20:49] LABS: ANION GAP 7 (8-16); BILIRUBIN,TOTAL 0.3 mg/dL (0.2-1.0); BLOOD UREA NITROGEN 12 mg/dL (7-18); CALCIUM 8.9 mg/dL (8.5-10.1); CHLORIDE 103 mmol/L (98-107); CO2 26 mmol/L (21-32); CREATININE 0.8 mg/dL (0.55-1.02); GLUCOSE,RANDOM 88 mg/dL (74-106); SGPT/ALT 27 U/L (12-78); SODIUM 136 mmol/L (136-145); TOT PROT 7.3 g/dl (6.4-8.2)
[2017-12-13 20:50] LABS: ALK PHOS 50 U/L (45-117)
[2017-12-13 20:58] LABS: POTASSIUM 4.9 mmol/L (3.5-5.1); SGOT/AST 35 U/L (15-37)
[2017-12-13 23:10] VITALS: BP 116/78; PULSE 80; TEMP 98.2
--- NOTE | 2017-12-14 11:54 | EKG ---
Test Reason : Blood Pressure : / mmHG Vent. Rate : 083 BPM Atrial Rate : 083 BPM P-R Int : 178 ms QRS Dur : 080 ms QT Int : 364 ms P-R-T Axes : 047 016 052 degrees QTc Int : 427 ms NORMAL SINUS RHYTHM NORMAL ECG WHEN COMPARED WITH ECG OF 26-APR-2017 08:38, NO SIGNIFICANT CHANGE WAS FOUND Confirmed by MD EMILIANO, JANELLE ([id number]) on 12/14/2017 11:54:32 AM Referred By: Confirmed By:JANELLE CUMMINGS MD
== END 2017-12-13 23:25 | disposition home or self-care (01) ==
LOC: JER 18:26
PROC: 3E033GC Introduction of Other Therapeutic Substance into Peripheral Vein, Percutaneous Approach (ICD-10-PCS; principal; 2017-12-13)
DX: G44.219 Episodic tension-type headache, not intractable (principal); I10 Essential (primary) hypertension; E78.5 Hyperlipidemia, unspecified; E11.9 Type 2 diabetes mellitus without complications; F31.9 Bipolar disorder, unspecified; Z79.84 Long term (current) use of oral hypoglycemic drugs
CPT/HCPCS: 36415; 70450-TC; 80053; 82550; 82553; 84484; 85025; 93005; 93010; 96374; 99283-25; J7030

== ENCOUNTER 2018-05-28 15:59 | Inpatient (IN) | payer OTHER ==
--- NOTE | 2018-05-28 16:58 | PDOC ---
History of Present Illness - General History Source: Patient Exam Limitations: No Limitations - History of Present Illness Initial Comments: 05/28/18 19:01 "The patient is a 62-year-old female with past medical history significant for HTN, HLD, DM, COPD, L. kidney infection s/p stents (removed), L. lung mucous, hx of pancreatitis and hypothyroidism presents to the emergency department with abdominal pain. The patient presents with a week of progressively worsening abdominal pain that radiates to the R. flank region. The patient reports the pain is pressure in quality, thats aggravated if the patient eats late at night, with mild relief noted after drinking liquids. The patient reports the pain is worse on the RLQ, thats exacerbated with palpation. The patient reports she had episodes of NBNB emesis that was watery in quality. The patient states the pain is similar to prior pancreatitis flare up. Denies fever , chills, chest pain, shortness of breath, diarrhea, constipation, dysuria, hematuria, urgency or frequency to urinate. Allergies: NKA Social history: Former smoker. No alcohol or recreational drug use reported. Surgical history: Appendectomy, Cholecystectomy and Rotator Cuff cyst removal. PCP: Danny Contreras " <Aarti Bradley - Last Filed: 05/28/18 19:01> <Jt Diaz - Last Filed: 06/03/18 17:15> - General Chief Complaint: Nausea/Vomiting Stated Complaint: STOMACH PAIN Time Seen by Provider: 05/28/18 16:19 Past History <Aarti Bradley - Last Filed: 05/28/18 19:01> - Past Medical History Anemia: No Asthma: Yes Cancer: No Cardiac Disorders: No CVA: No COPD: Yes CHF: No Dementia: No Diabetes: Yes GI Disorders: No Disorders: No HTN: Yes Hypercholesterolemia: Yes Liver Disease: No Seizures: No Thyroid Disease: Yes (HYPO.) - Surgical History Appendectomy: Yes Cholecystectomy: Yes Orthopedic Surgery: Yes (rotator cuff cyst removal) - Immunization History Td Vaccination: No TDAP Vaccination: No Immunization Up to Date: No - Suicide/Smoking/Psychosocial Hx Smoking History: Former smoker Have you smoked in the past 12 months: No Number of Cigarettes Smoked Daily: 1 If you are a former smoker, when did you quit?: 2018 Cigars Per Day: 0 Information on smoking cessation initiated: No 'Breaking Loose' booklet given: 04/26/17 Hx Alcohol Use: No Drug/Substance Use Hx: No Substance Use Type: None Hx Substance Use Treatment: No <JoeJt - Last Filed: 06/03/18 17:15> - Past Medical History Allergies/Adverse Reactions: Allergies Allergy/AdvReac Type Severity Reaction Status Date / Time No Known Allergies Allergy Verified 05/28/18 16:21 Home Medications: Ambulatory Orders Atorvastatin Ca [Lipitor] 20 mg PO HS #0 tab 04/28/17 Calcium (Oyster Shell) [Os-Malcolm 500MG -] 500 mg PO DAILY #0 tab 04/28/17 Canagliflozin [Invokana] 300 mg PO DAILY #0 tab 04/28/17 Gabapentin 600 mg PO TID #0 cap 04/28/17 Lamotrigine 150 mg PO DAILY #0 tab 04/28/17 Loratadine [Claritin -] 10 mg PO DAILY #30 tablet 04/28/17 Losartan Potassium 100 mg PO DAILY #0 tab 04/28/17 Omeprazole 40 mg PO DAILY #0 cap 04/28/17 Sodium Chloride Nasal [place] [[place] Nasal [place] -] 2 spray NS TID PRN #1 spray 04/28/17 Venlafaxine HCl ER [Effexor Xr -] 150 mg PO DAILY #0 cap 04/28/17 Acetaminophen W/ Codeine #3 [Tylenol # 3 -] 1 tab PO ONCE 05/23/18 traZODone HCL [Trazodone HCl] 100 mg PO HS 05/23/18 Montelukast Sodium [Singulair] 10 mg PO DAILY 05/28/18 Budesonide/Formeterol Fumarate [SYMBICORT 160/4.5mcg -] 1 inh PO DAILY 05/29/18 Linaclotide [Linzess] 72 mcg PO DAILY 05/29/18 Liraglutide [Victoza -] 1.2 mg SQ DAILY@0700 05/29/18 Tramadol HCl/Acetaminophen [Ultracet Tablet] 1 each PO BID PRN 05/29/18 Amox-Tr/K Cl [Augmentin - 875Mg Tablet] 1 tab PO BID #10 tablet 05/31/18 Gabapentin [Neurontin -] 600 mg PO TID #90 capsule 05/31/18 Lamotrigine [LaMICtal -] 150 mg PO DAILY tablet 05/31/18 Losartan Potassium [Cozaar -] 100 mg PO DAILY tablet 05/31/18 traZODone HCL [Desyrel -] 100 mg PO HS tablet 05/31/18 Review of Systems - Review of Systems Able to Perform ROS?: Yes Comments:: 05/28/18 19:02 "CONSTITUTIONAL: No reported: Fever, Chills, Diaphoresis, Generalized Weakness, Malaise, Loss of Appetite HEENT: No reported: Rhinorrhea, Nasal Congestion, Throat Pain, Throat Swelling, Difficulty Swallowing, Mouth Swelling, Ear Pain, Eye Pain, Visual Changes CARDIOVASCULAR: No reported: Chest Pain, Syncope, Palpitations, Irregular Heart Rate, Lightheadedness, Peripheral Edema RESPIRATORY: No reported: Cough, Shortness of Breath, SOB with Exertion, Orthopnea, Wheezing , Stridor, Hemoptysis GASTROINTESTINAL: (+) Abdominal pain. RLQ pain with palpation. Episodes of vomiting. No reported: Abdominal Distension, Diarrhea, Constipation, Melena, Hematochezia GENITOURINARY: No reported: Dysuria, Frequency, Urgency, Hesitancy, Flank Pain, Genital Pain MUSCULOSKELETAL: No reported: Myalgia, Arthralgia, Joint Swelling, Back pain, Neck Pain SKIN: No reported: Rash, Itching, Pallor HEMEATOLOGIC/IMMUNOLOGIC: No reported: Easy Bleeding, Easy Bruising, Lymphadenopathy, Frequent infections ENDOCRINE: No reported: Unexplained Weight Gain, Unexplained Weight Loss, Heat Intolerance , Cold Intolerance NEUROLOGIC: No reported: Headache, Focal Weakness, Paresthesias, Vertigo, Lightheadedness, Unsteady Gait, Seizure, Mental Status Changes, Incontinence PSYCHIATRIC: No reported: Anxiety, Depression " <Aarti Bradley - Last Filed: 05/28/18 19:01> *Physical Exam - Vital Signs Last Vital Signs Temp Pulse Resp BP Pulse Ox 98.6 F 79 18 119/79 96 05/28/18 16:18 05/28/18 16:18 05/28/18 16:18 05/28/18 16:18 05/28/18 16:18 - Physical Exam Comments: 05/28/18 17:16 GENERAL: The patient is awake, alert, and fully oriented, Nontoxic - in no acute distress. HEAD: Normocephalic, atraumatic. EYES: extraocular movements intact, sclera anicteric, conjunctiva clear. ENT: Normal voice, Moist mucous membranes. NECK: Normal range of motion, supple LUNGS: Breath sounds equal, clear to auscultation bilaterally. No wheezes, no rhonchi, no rales. HEART: Regular rate and rhythm, without murmur, rub or gallop. ABDOMEN: + Epigastric and RLQ tenderness. Soft, No guarding, no rebound.No CVA tenderness EXTREMITIES: no leg swelling. Normal range of motion, no edema. NEUROLOGICAL: No facial assymetry, Normal speech, PSYCH: Normal mood, normal affect. SKIN: Warm, Dry, normal turgor. <Aarti Bradley - Last Filed: 05/28/18 19:01> - Vital Signs Last Vital Signs Temp Pulse Resp BP Pulse Ox 98.6 F 79 18 119/79 96 05/28/18 16:18 05/28/18 16:18 05/28/18 16:18 05/28/18 16:18 05/28/18 16:18 <Jt Diaz - Last Filed: 06/03/18 17:15> Heart Score/ECG Review - ECG Impressions Comment:: 05/28/18 18:48 Twelve-lead EKG was performed and reviewed by me. There is normal sinus rhythm with a normal rate. rate of [address]-T wave changes increased suggestive of acute infarction normal R wave progression <Jt Diaz - Last Filed: 06/03/18 17:15> ED Treatment Course - LABORATORY CBC & Chemistry Diagram: 05/28/18 17:00 05/28/18 17:00 <Aarti Bradley - Last Filed: 05/28/18 19:01> - LABORATORY CBC & Chemistry Diagram: 05/29/18 06:30 05/29/18 06:30 <Jt Diaz - Last Filed: 06/03/18 17:15> Medical Decision Making - Medical Decision Making 05/28/18 17:02 1 week of epigastric pain, occaional radiation to RUQ/back and RLQ no fevers +nausea/vomiting exam on palpiation of epigastrium and RLQ ddx - pancreatitis, gastritis, appendicitis will ck labs will give fluids, pepcid/maalox willr eassess 05/28/18 18:47 labs reviewed will obtain CT abd to r/o appendicitis pt still in pain will sig npt out to evening team to reasses the pt <Jt Diaz - Last Filed: 06/03/18 17:15> *DC/Admit/Observation/Transfer - Attestations Scribe Attestion: 05/28/18 17:17 Documentation prepared by Aarti Bradley, acting as medical resident for Jt Diaz MD. <Aarti Bradley - Last Filed: 05/28/18 19:01> <Jt Diaz - Last Filed: 06/03/18 17:15> Diagnosis at time of Disposition: Bilateral pneumonia, Diabetes - Discharge Dispostion Disposition: HOME Condition at time of disposition: Improved
[2018-05-28] MEDS ORDERED: FAMOTIDINE 20 MG/50 ML IVPB 20 MG in PREMIX 50 IVPB ONE (17:01)
[2018-05-28] MEDS ORDERED: MAG HYDROX/AL HYDROX/SIMETH -MYLANTA- ORAL SUSPENSION PO ONE (17:01)
[2018-05-28] MEDS ORDERED: ONDANSETRON 4 MG/2 ML VIAL IVPB ONE (17:01)
[2018-05-28] MEDS ORDERED: ACETAMINOPHEN 1000 MG/100 ML VIAL (NON FORMULARY) IVPB ONE (17:15)
[2018-05-28 17:20] LABS: BASO % 0.7 % (0-2.0); EOS % 0.2 % (0-4.5); HEMATOCRIT 42.6 % (32.4-45.2); HEMOGLOBIN 13.6 GM/dL (10.7-15.3); LYMPH % 31.6 % (8-40); MCH 26.4 pg (25.7-33.7); MEAN CELL VOLUME 82.6 fl (80-96); MEAN PLT VOLUME 8.8 fl (7.5-11.1); MONO % 12.4 % (3.8-10.2); NEUT % 55.1 % (42.8-82.8); PLATELET COUNT 235 K/MM3 (134-434); RBC 5.16 M/mm3 (3.60-5.2); RDW 13.9 % (11.6-15.6); WHITE BLOOD COUNT 7.9 K/mm3 (4.0-10.0)
[2018-05-28] MEDS ORDERED: SODIUM CHLORIDE 1,000 ML IV ONE (17:22)
[2018-05-28] MEDS ORDERED: ONDANSETRON 4 MG/2 ML VIAL ONE (17:23)
[2018-05-28] MEDS ORDERED: FAMOTIDINE 20 MG/50 ML IVPB 20 MG/50 ML MG IVPB ONE (17:23)
[2018-05-28] MEDS ORDERED: ACETAMINOPHEN INJECTION 100 ML IVPB ONE (17:23)
[2018-05-28] MEDS ORDERED: MAG HYDROX/AL HYDROX/SIMETH 30 ML UNIT-DOSE CUP ONE (17:23)
[2018-05-28 17:42] LABS: URINE APPEARANCE CLEAR; URINE BILIRUBIN NEGATIVE (<2.0 mg/dL); URINE COLOR STRAW; URINE GLUCOSE (UA) 3+ (NEGATIVE); URINE KETONE NEGATIVE (NEGATIVE); URINE LEUK ESTERASE NEGATIVE (NEGATIVE); URINE NITRITE NEGATIVE (NEGATIVE); URINE PROTEIN NEGATIVE (NEGATIVE); URINE UROBILINOGEN NEGATIVE mg/dL (0.2-1.0)
[2018-05-28 17:45] LABS: ALBUMIN 3.5 g/dl (3.4-5.0); ALK PHOS 58 U/L (45-117); ANION GAP 7 MMOL/L (8-16); BILIRUBIN,TOTAL 0.2 mg/dL (0.2-1); BLOOD UREA NITROGEN 15 mg/dL (7-18); CHLORIDE 102 mmol/L (98-107); CO2 30 mmol/L (21-32); CREATININE 0.8 mg/dL (0.55-1.3); GLUCOSE,RANDOM 83 mg/dL (74-106); LIPASE 182 U/L (73-393); POTASSIUM 4.2 mmol/L (3.5-5.1); SGOT/AST 23 U/L (15-37); SGPT/ALT 24 U/L (13-61); SODIUM 138 mmol/L (136-145)
[2018-05-28] MEDS ORDERED: KETOROLAC TROMETHAMINE 30 MG/1 ML VIAL IVPUSH ONE (18:46)
[2018-05-28] MEDS ORDERED: morphine CARPU-JECT 4 MG/1 ML DISP.SYRIN IVPUSH ONE (18:47)
[2018-05-28] MEDS ORDERED: morphine SULFATE 4 MG/ML VIAL ONE (18:48)
--- NOTE | 2018-05-28 19:49 | PDOC ---
*Physical Exam - Vital Signs Last Vital Signs Temp Pulse Resp BP Pulse Ox 98.6 F 79 18 119/79 96 05/28/18 16:18 05/28/18 16:18 05/28/18 16:18 05/28/18 16:18 05/28/18 16:18 ED Treatment Course - LABORATORY CBC & Chemistry Diagram: 05/28/18 17:00 05/28/18 17:00 - ADDITIONAL ORDERS Additional order review: Laboratory Results 05/28/18 05/28/18 Unknown 17:00 Sodium 138 Potassium 4.2 Chloride 102 Carbon Dioxide 30 Anion Gap 7 L BUN 15 Creatinine 0.8 Creat Clearance w eGFR > 60 Random Glucose 83 Calcium 9.0 Total Bilirubin 0.2 AST 23 ALT 24 Alkaline Phosphatase 58 Total Protein 7.0 Albumin 3.5 Lipase 182 Urine Color Straw Urine Appearance Clear Urine pH 9.0 H D Ur Specific [place] 1.015 Urine Protein Negative Urine Glucose (UA) 3+ H Urine Ketones Negative Urine Blood Negative Urine Nitrite Negative Urine Bilirubin Negative Urine Urobilinogen Negative Ur Leukocyte Esterase Negative 05/28/18 17:00 RBC 5.16 MCV 82.6 MCHC 32.0 RDW 13.9 MPV 8.8 Neutrophils % 55.1 Lymphocytes % 31.6 D Monocytes % 12.4 H Eosinophils % 0.2 D Basophils % 0.7 - Medications Given in the ED: ED Medications Discontinued Medications Generic Name Dose Route Start Last Admin Trade Name Stephenq PRN Reason Stop Dose Admin Acetaminophen 1,000 mg 05/28/18 17:15 05/28/18 17:37 Ofirmev Injection - IVPB 05/28/18 17:16 1,000 mg ONCE ONE Administration Al Hydroxide/Mg Hydroxide 30 ml 05/28/18 17:01 05/28/18 17:37 Mylanta Suspension - PO 05/28/18 17:02 30 ml ONCE ONE Administration Famotidine/Sodium Chloride 20 50 mls @ 100 mls/hr 05/28/18 17:01 05/28/18 17: 37 mg/ Miscellaneous IVPB 05/28/18 17:30 100 mls/hr ONCE ONE Administration Sodium Chloride 1,000 mls @ 1,000 mls/hr 05/28/18 17:22 05/28/18 17:38 Normal Saline - IV 05/28/18 18:21 1,000 mls/hr .Q1H ONE Administration Ketorolac Tromethamine 30 mg 05/28/18 18:46 05/28/18 19:08 Toradol Injection - IVPUSH 05/28/18 18:47 Not Given ONCE ONE Morphine Sulfate 4 mg 05/28/18 18:47 05/28/18 18:56 Morphine Injection - IVPUSH 05/28/18 18:48 4 mg ONCE ONE Administration Ondansetron HCl 4 mg 05/28/18 17:01 05/28/18 17:37 Zofran Injection IVPB 05/28/18 17:02 4 mg ONCE ONE Administration Medical Decision Making - Medical Decision Making 05/28/18 19:57 Pt was signed out to me. Her labs are normal. She is awaiting CT scan of her abd pelvis to eval her RLQ and epigastric pain. 05/29/18 04:30 Pt has bilat pneumonia seen on her CT scan. As a result she will be admitted because she has DM and she has unclear cause of her abd pain. Pt feels unwell and she will be admitted to the hospitalists, who cover for [facility]. *DC/Admit/Observation/Transfer Diagnosis at time of Disposition: Bilateral pneumonia, Diabetes - Discharge Dispostion Condition at time of disposition: Guarded Decision to Admit order: Yes - Referrals - Patient Instructions - Post Discharge Activity
[2018-05-28] MEDS ORDERED: CEFTRIAXONE 1 GM in DEXTROSE 5%-WATER - 50 ML IVPB ONE (21:17)
[2018-05-28] MEDS ORDERED: AZITHROMYCIN IVPB 500 MG in DEXTROSE 5%-WATER - 250 ML IVPB ONE (21:18)
[2018-05-28] MEDS ORDERED: ONDANSETRON 4 MG/2 ML VIAL IVPUSH PRN (21:33)
--- NOTE | 2018-05-28 21:36 | HP ---
Admitting History and Physical - Primary Care Physician PCP: Danny Robertson - Admission Chief Complaint: Abdominal Pain, R- Flank Pain History of Present Illness: This is a 62 y/o woman with PMHx of HTN, HLD, DM, COPD, Bronchitis, Pancreatitis , Hypothyroidism, Pyelonephritis (Stents, removed). Who presents to the ED with abdominal pain, radiating to R- flank, and vomiting NBNB. Patient states" It feels the same when I have Pancreatitis." Patient also reports that the pain is worse after eating late at night but is relieved with drinking warm liquids. Patient denies fever, chills, cough, dizziness, CP, diarrhea, dysuria. History Source: Patient Limitations to Obtaining History: No Limitations - Past Medical History Cardiovascular: Yes: HTN, Hyperlipdemia Pulmonary: Yes: Asthma, COPD Gastrointestinal: Yes: Pancreatitis Psych: Yes: Bipolar, Depression Musculoskeletal: Yes: Chronic low back pain, Other (Herniated discs) Endocrine: Yes: Diabetes Mellitus, Hypothyroidism - Past Surgical History Past Surgical History: Yes: Appendectomy, Cholecystectomy, ( x3) - Smoking History Smoking history: Former smoker Have you smoked in the past 12 months: No Aproximately how many cigarettes per day: 1 If you are a former smoker, when did you quit?: 2018 - Alcohol/Substance Use Hx Alcohol Use: No History of Substance Use: reports: Cocaine (in remote past, none for many years ) Home Medications - Allergies Allergies/Adverse Reactions: Allergies Allergy/AdvReac Type Severity Reaction Status Date / Time No Known Allergies Allergy Verified 05/28/18 16:21 - Home Medications Home Medications: Ambulatory Orders Atorvastatin Ca [Lipitor] 20 mg PO HS #0 tab 04/28/17 Calcium (Oyster Shell) [Os-Malcolm 500MG -] 500 mg PO DAILY #0 tab 04/28/17 Canagliflozin [Invokana] 300 mg PO DAILY #0 tab 04/28/17 Gabapentin 600 mg PO TID #0 cap 04/28/17 Lamotrigine 150 mg PO DAILY #0 tab 04/28/17 Loratadine [Claritin -] 10 mg PO DAILY #30 tablet 04/28/17 Losartan Potassium 100 mg PO DAILY #0 tab 04/28/17 Omeprazole 40 mg PO DAILY #0 cap 04/28/17 Sodium Chloride Nasal [place] [[place] Nasal [place] -] 2 spray NS TID PRN #1 spray 04/28/17 Venlafaxine HCl ER [Effexor Xr -] 150 mg PO DAILY #0 cap 04/28/17 Acetaminophen W/ Codeine #3 [Tylenol # 3 -] 1 tab PO ONCE 05/23/18 traZODone HCL [Trazodone HCl] 100 mg PO HS 05/23/18 Montelukast Sodium [Singulair] 10 mg PO DAILY 05/28/18 Review of Systems - Review of Systems Constitutional: reports: Loss of Appetite Eyes: reports: No Symptoms HENT: reports: No Symptoms Neck: reports: No Symptoms Cardiovascular: reports: No Symptoms Respiratory: reports: No Symptoms Gastrointestinal: reports: Abdominal Pain, Nausea, Vomiting. denies: Rectal Bleeding, Vomiting Blood Genitourinary: reports: No Symptoms Breasts: reports: No Symptoms Reported Musculoskeletal: reports: Back Pain Integumentary: reports: No Symptoms Neurological: reports: No Symptoms Endocrine: reports: No Symptoms Hematology/Lymphatic: reports: No Symptoms Physical Examination Vital Signs: Vital Signs Temperature 98.6 F 05/28/18 16:18 Pulse Rate 79 05/28/18 16:18 Respiratory Rate 18 05/28/18 16:18 Blood Pressure 119/79 05/28/18 16:18 O2 Sat by Pulse Oximetry (%) 96 05/28/18 16:18 Constitutional: Yes: No Distress, Calm, Obese Eyes: Yes: Conjunctiva Clear, EOM Intact, PERRL HENT: Yes: WNL, Atraumatic, Normocephalic Neck: Yes: WNL, Supple, Trachea Midline Cardiovascular: Yes: WNL, Regular Rate and Rhythm, S1, S2 Respiratory: Yes: WNL, Regular, CTA Bilaterally Gastrointestinal: Yes: Normal Bowel Sounds, Abdomen, Obese, Tenderness, Epigastrium Renal/: Yes: CVA Tenderness - Right Breast(s): Yes: WNL Musculoskeletal: Yes: WNL Extremities: Yes: WNL Edema: No Peripheral Pulses WNL: Yes Neurological: Yes: WNL, Alert, Oriented ...Motor Strength: WNL Psychiatric: Yes: WNL, Alert, Oriented Labs: CBC, BMP 05/28/18 17:00 05/28/18 17:00 Laboratory Results - last 24 hr 05/28/18 05/28/18 05/28/18 17:00 17:00 21:26 WBC 7.9 RBC 5.16 Hgb 13.6 Hct 42.6 MCV 82.6 MCH 26.4 MCHC 32.0 RDW 13.9 Plt Count 235 MPV 8.8 Absolute Neuts (auto) 4.4 Neutrophils % 55.1 Lymphocytes % 31.6 D Monocytes % 12.4 H Eosinophils % 0.2 D Basophils % 0.7 Nucleated RBC % 0 Sodium 138 Potassium 4.2 Chloride 102 Carbon Dioxide 30 Anion Gap 7 L BUN 15 Creatinine 0.8 Creat Clearance w eGFR > 60 POC Glucometer Random Glucose 83 Lactic Acid 1.3 Calcium 9.0 Total Bilirubin 0.2 AST 23 ALT 24 Alkaline Phosphatase 58 Total Protein 7.0 Albumin 3.5 Lipase 182 Urine Color Urine Appearance Urine pH Ur Specific [place] Urine Protein Urine Glucose (UA) Urine Ketones Urine Blood Urine Nitrite Urine Bilirubin Urine Urobilinogen Ur Leukocyte Esterase Current Medications Generic Name Dose Route Start Last Admin Trade Name Freq PRN Reason Stop Dose Admin Dextrose/Sodium Chloride 1,000 mls @ 42 mls/hr 05/28/18 21:45 05/29/18 01:36 D5-1/2ns - IV 42 mls/hr ASDIR ALLI Administration Azithromycin 500 mg in 250 mls @ 250 mls/hr 05/29/18 10:00 Zithromax 500mg Ivpb (Pre-Docked) IVPB DAILY ALLI Ceftriaxone Sodium 1 gm/ 50 mls @ 100 mls/hr 05/29/18 10:00 Dextrose IVPB DAILY [facility] Protocol Influenza Virus Vaccine Quadrival 60 mcg 05/29/18 10:00 Flulaval Quad [id number] IM 05/29/18 10:01 .ONCE ONE Ondansetron HCl 4 mg 05/28/18 21:33 Zofran Injection IVPUSH Q6H PRN NAUSEA Pneumococcal Polyvalent Vaccine 0.5 ml 05/29/18 10:00 Pneumovax - IM 05/29/18 10:01 .ONCE ONE Imaging - Results Chest X-ray: Image Reviewed Cat Scan: Report Reviewed, Image Reviewed Problem List - Problems (1) Bilateral pneumonia Code(s): J18.9 - PNEUMONIA, UNSPECIFIED ORGANISM (2) Abdominal pain Code(s): R10.9 - UNSPECIFIED ABDOMINAL PAIN (3) COPD (chronic obstructive pulmonary disease) Code(s): J44.9 - CHRONIC OBSTRUCTIVE PULMONARY DISEASE, UNSPECIFIED (4) HTN (hypertension) Code(s): I10 - ESSENTIAL (PRIMARY) HYPERTENSION (5) HLD (hyperlipidemia) Code(s): E78.5 - HYPERLIPIDEMIA, UNSPECIFIED (6) Hypothyroidism Code(s): E03.9 - HYPOTHYROIDISM, UNSPECIFIED (7) Diabetes Code(s): E11.9 - TYPE 2 DIABETES MELLITUS WITHOUT COMPLICATIONS Assessment/Plan This is a 62 y/o woman with a PMHx of HTN, HLD, DM, COPD, Bronchitis, Pyelonephritis (stents, removed), Pancreatitis, Hypothyroidism. Placed in Observation for Pneumonia and Intractable Abdominal Pain for further evaluation of their emergent condition. Plan: 1. ID Community Acquired Pneumonia Blood Cultures-pending Urine Legionella CTAP- showed patchy airspace infiltrates in B/L lower lobes R>L multifocal bronchopneumonia No leukocytosis, LA nl, pt is afebrile Ceftriaxone, Azithromycin given in ED will continue Appreciate ID consult Repeat CBC, BMP Monitor vitals Tylenol prn 2. GI Intractable Abdominal Pain Pancreatitis hx CTAP- poorly formed stool in colon with scattered air fluid levels compatible with ileus On exam: abdomen firm, BS present, TN to epigastrium Consider GI or Surgical consult if condition worsens Lipase-nl NPO Continue IVF Monitor CBC, BMP Pain meds 3. Card HTN HLD continue home meds 4. Pulm COPD Chronic Bronchitis Duonebs continue home meds 5. Endo Hypothyroidism continue home med FEN IVF Replete lytes prn NPO DVT ppx OOB SCDs Dispo: Observation Visit type - Emergency Visit Emergency Visit: Yes ED Registration Date: 05/28/18 Care time: The patient presented to the Emergency Department on the above date and was hospitalized for further evaluation of their emergent condition. - New Patient This patient is new to me today: Yes Date on this admission: 05/28/18 - Critical Care Critical Care patient: No
[2018-05-28] MEDS ORDERED: AZITHROMYCIN IVPB 500 MG/250 ML BAG IVPB ONE (22:03)
[2018-05-28] MEDS ORDERED: CEFTRIAXONE 1 GM/50 ML BAG ONE (22:04)
[2018-05-28] MEDS: DEXTROSE 5%-0.45% SALINE 1,000 ML IV SCH (22:21)
[2018-05-29] MEDS ORDERED: ONDANSETRON 4 MG/2 ML VIAL ONE (00:40)
[2018-05-29 01:19] VITALS: BMI 29.2
[2018-05-29] MEDS ORDERED: KETOROLAC TROMETHAMINE 30 MG/1 ML VIAL IVPUSH ONE (01:29)
[2018-05-29] MEDS: DEXTROSE 5%-0.45% SALINE 1,000 ML IV SCH ×2 (01:36→21:55)
[2018-05-29 07:35] LABS: BASO % 0.4 % (0-2.0); EOS % 0.1 % (0-4.5); HEMOGLOBIN 12.6 GM/dL (10.7-15.3); MCH 26.9 pg (25.7-33.7); MCHC 32.3 g/dl (32.0-36.0); MEAN CELL VOLUME 83.3 fl (80-96); MEAN PLT VOLUME 9.1 fl (7.5-11.1); NEUT % 47.5 % (42.8-82.8); PLATELET COUNT 216 K/MM3 (134-434); RBC 4.68 M/mm3 (3.60-5.2); RDW 14.1 % (11.6-15.6); WHITE BLOOD COUNT 7.4 K/mm3 (4.0-10.0)
[2018-05-29] MEDS ORDERED: ACETAMINOPHEN 325 MG TABLET (FP) PO ONE (07:35)
[2018-05-29] MEDS ORDERED: morphine CARPU-JECT 4 MG/1 ML DISP.SYRIN IVPUSH PRN (08:32)
--- NOTE | 2018-05-29 08:36 | PN ---
Progress Note, Physician Chief Complaint: Intractable abdominal pain History of Present Illness: NAD C/O abdominal pain on palpation CT abd/pelvis done-results pending, H&P suggests ileus - Current Medication List Current Medications: Active Medications Acetaminophen (Ofirmev Injection -) 1,000 mg IVPB Q6H PRN PRN Reason: PAIN OR FEVER Dextrose/Sodium Chloride (D5-1/2ns -) 1,000 mls @ 42 mls/hr IV ASDIR ALLI Last Admin: 05/29/18 01:36 Dose: 42 mls/hr Azithromycin (Zithromax 500mg Ivpb (Pre-Docked)) 500 mg in 250 mls @ 250 mls/ hr IVPB DAILY ALLI Ceftriaxone Sodium 1 gm/ (Dextrose) 50 mls @ 100 mls/hr IVPB DAILY ALLI; Protocol Influenza Virus Vaccine Quadrival (Flulaval Quad [id number]) 60 mcg IM .ONCE ONE Stop: 05/29/18 10:01 Morphine Sulfate (Morphine Injection -) 4 mg IVPUSH Q6H PRN PRN Reason: PAIN LEVEL 6-10 Ondansetron HCl (Zofran Injection) 4 mg IVPUSH Q6H PRN PRN Reason: NAUSEA Pneumococcal Polyvalent Vaccine (Pneumovax -) 0.5 ml IM .ONCE ONE Stop: 05/29/18 10:01 - Objective Vital Signs: Vital Signs Temperature 97.7 F 05/29/18 05:00 Pulse Rate 76 05/29/18 05:00 Respiratory Rate 18 05/29/18 05:00 Blood Pressure 129/72 05/29/18 05:00 O2 Sat by Pulse Oximetry (%) 97 05/29/18 00:30 Constitutional: Yes: Well Nourished, No Distress, Calm Cardiovascular: Yes: Regular Rate and Rhythm Respiratory: Yes: Regular Gastrointestinal: Yes: Abdomen, Obese, Distention, Hypoactive Bowel Sounds, Tenderness (diffuse) Musculoskeletal: Yes: WNL Extremities: Yes: WNL Edema: No Peripheral Pulses WNL: Yes Neurological: Yes: Alert, Oriented Psychiatric: Yes: Alert, Oriented Labs: CBC, BMP 05/29/18 06:30 Problem List - Problems (1) Ileus Assessment/Plan: -Surgery and GI consult -IVF -NPO -Await CT results -serial abdominal Xray -Morphine 4 mg IVP Q6H PRN for pain 6-10 -Acetaminophen 650 mg IVPB Q6H PRN for pain 1-5 -PPI Code(s): K56.7 - ILEUS, UNSPECIFIED (2) Diabetes Assessment/Plan: -On D5+1/2N/S @ 42 cc/hr -check A1C, last 6.8 in 2017 -if below 7.0, defer BGM AC HS Code(s): E11.9 - TYPE 2 DIABETES MELLITUS WITHOUT COMPLICATIONS (3) Abdominal pain Assessment/Plan: -Surgery and GI consult -IVF -NPO -Await CT results -serial abdominal Xray -Morphine 4 mg IVP Q6H PRN for pain 6-10 -Acetaminophen 650 mg IVPB Q6H PRN for pain 1-5 Code(s): R10.9 - UNSPECIFIED ABDOMINAL PAIN (4) HTN (hypertension) Assessment/Plan: -Metoprolol 5 mg IVPB Q4H PRN for SBP >160 mm Hg Code(s): I10 - ESSENTIAL (PRIMARY) HYPERTENSION Assessment/Plan see problem list Self ambulatory DVT prophylaxis
[2018-05-29] MEDS ORDERED: morphine SULFATE 4 MG/ML VIAL IVPUSH PRN (08:37)
[2018-05-29] MEDS ORDERED: DEXTROSE 5%-WATER - 50 ML IVPB ONE (08:46)
[2018-05-29] MEDS ORDERED: cefTRIAXone SODIUM 1 GM VIAL ONE (08:46)
[2018-05-29] MEDS: ACETAMINOPHEN 1000 MG/100 ML VIAL (NON FORMULARY) IVPB PRN ×2 (08:59→19:42)
[2018-05-29] MEDS ORDERED: PNEUMOC 13-VAL CONJ-DIP CRM/PF 0.5 ML DISP.SYRIN IM ONE (09:00)
[2018-05-29] MEDS ORDERED: METOPROLOL TARTRATE 5 MG/5 ML VIAL IVPB PRN (09:02)
[2018-05-29] MEDS: CEFTRIAXONE 1 GM in DEXTROSE 5%-WATER - 50 ML IVPB SCH (09:03)
[2018-05-29] MEDS ORDERED: PNEUMOCOCCAL 23 VACCINE 0.5 ML VIAL IM ONE (10:00)
[2018-05-29] MEDS ORDERED: PANTOPRAZOLE SODIUM 40 MG in SODIUM CHLORIDE 100 ML IVPB SCH (10:00)
[2018-05-29] MEDS ORDERED: FLU VACCINE QUAD 60 MCG/0.5 ML (MDV 18-19) IM ONE (10:00)
[2018-05-29] MEDS ORDERED: PANTOPRAZOLE SODIUM 40 MG VIAL IVPUSH SCH (10:00)
[2018-05-29 11:02] LABS: ANION GAP 7 MMOL/L (8-16); BLOOD UREA NITROGEN 14 mg/dL (7-18); CALCIUM 8.6 mg/dL (8.5-10.1); CHLORIDE 105 mmol/L (98-107); CO2 27 mmol/L (21-32); CREATININE 0.8 mg/dL (0.55-1.3); GLUCOSE,RANDOM 75 mg/dL (74-106); POTASSIUM 4.5 mmol/L (3.5-5.1); SODIUM 139 mmol/L (136-145)
[2018-05-29] MEDS: AZITHROMYCIN IVPB 500 MG/250 ML BAG IVPB SCH (12:04)
[2018-05-29] MEDS: HEPARIN NA (PORCINE) 5,000 UNITS/ML 1ML VIAL SQ SCH ×2 (12:05→21:07)
--- NOTE | 2018-05-29 12:25 | PN ---
Progress Note (short form) - Note Progress Note: ID Consult dictated Abdominal pain syndrome Bibasilar pneumonia Await c/s Will obtain CT chest Continue zithromax/ ceftriaxone GI evaluation
--- NOTE | 2018-05-29 13:59 | CONS ---
DATE OF CONSULTATION: DATE OF DICTATION: 05/29/2018 The patient is a 62-year-old female evaluated for bibasilar pneumonia. The patient was admitted to the hospital on May 28, 2018 with complaints of abdominal pain. She reports upper abdominal pain with radiation to the flank area associated with nausea and vomiting of none bilious fluid. A CAT scan of the abdomen and pelvis was obtained and she was noted to have an ileus as well as bibasilar consolidations. She was empirically treated with ceftriaxone and Zithromax. The patient at the present time complains of a headache and abdominal discomfort. She is hungry and is requesting food. She has a cough which has been dry, no purulent sputum production or hemoptysis. She lives at home. She denies any ill contacts. She is not presently working. She is a former smoker. She has not yet received an influenza vaccine and has not received a pneumococcal vaccine. No recent hospitalizations. PAST MEDICAL HISTORY: Positive for hypertension, hyperlipidemia, diabetes mellitus, COPD, pancreatitis, hypothyroidism, and a history of pyelonephritis. ALLERGIES: No known allergies. MEDICATIONS: Lipitor, Neurontin, ibuprofen, omeprazole, Effexor, trazodone, and Singulair. SOCIAL HISTORY: As per HPI. She is a former smoker. She lives at home with family members. PAST SURGICAL HISTORY: Status post appendectomy and cholecystectomy. LABORATORY DATA: White count 7.4, hematocrit 39.0, platelet count 216, BUN 14, and creatinine 0.8. Urinalysis: negative Leukocyte esterase negative. PHYSICAL EXAMINATION: General: She is awake and alert. She is not acutely toxic appearing. Vital Signs: Temperature 98.1, blood pressure 121/76, pulse 76 and regular, and respirations 18 per minute. HEENT: Sclerae anicteric. Heart: Sounds S1, S2. Lungs: Crepitations at the bases bilaterally. Abdomen: Obese, soft, and some mild epigastric tenderness to deep palpation. No rebound or rigidity. Extremities: Negative for edema and negative Cindy sign. IMPRESSION: 1. Abdominal pain syndrome. 2. Bibasilar pneumonia. PLAN: Await culture results, obtain sputum culture, urine Legionella antigen, and continue empiric Zithromax and ceftriaxone and GI evaluation. ] Thank you for the kind referral. TRACY VILLA M.D. [id number]
--- NOTE | 2018-05-29 14:01 | EKG ---
Test Reason : Blood Pressure : / mmHG Vent. Rate : 072 BPM Atrial Rate : 072 BPM P-R Int : 178 ms QRS Dur : 074 ms QT Int : 388 ms P-R-T Axes : 044 011 039 degrees QTc Int : 424 ms NORMAL SINUS RHYTHM LOW VOLTAGE QRS BORDERLINE ECG WHEN COMPARED WITH ECG OF 13-DEC-2017 19:18, NO SIGNIFICANT CHANGE WAS FOUND Confirmed by MD Vasquez Edward ([id number]) on 05/29/2018 2:01:01 PM Referred By: Confirmed By:Reece Vasquez MD
[2018-05-29] MEDS ORDERED: SODIUM CHLORIDE NASAL SPRAY 44 ML BOTTLE NS PRN (16:33)
--- NOTE | 2018-05-29 16:45 | CONSULT ---
Consult Consult Specialty:: General Surgery Referred by:: Neto Young Reason for Consultation:: abdominal pain, ?ileus - History of Present Illness Chief Complaint: epigastric pain, n/v, also R abdominal pain, left posterior thoracic pain History of Present Illness: 62yo F with multiple medical problems including chronic pain issues, DM2, recent sinus surgery with 3 courses of abx finishing this week for maxillary sinus infection, recent urinary neurostimulator device implantation, reports at least a year of chronic, intermittent epigastric pain occurring both with and without food intake, also right-sided brief radiating pains when she eats, which got worse in last few days, sharp, associated with multiple episodes of N/ V. She has taken Mylanta, MOM, soup, and her regular daily protonix without relief, but stopped taking her usual (bid) Ultracet 4-5 days ago in spite of the pain. She has been on Linzess for the last 6 months, which gives her soft, regular BMs vs prior constipation; she did not have it yesterday, but did have a soft BM yesterday and has had no diarrhea with this. She is also on scheduled Gabapentin tid. She states Dr. He planned outpatient EGD in June, and saw her earlier today, and has followed her as an outpt. She sees many different doctors. Urinary symptoms improved with the stimulator placement last month. The site is not particularly tender, and she saw Dr. Honeycutt recently and reports that it is working appropriately. In the ER, she had normal wbc, and CT a/p showed dilated colon with non-solid stool content throughout, possibly consistent with ileus, as well as possible bibasilar pneumonia. She was made NPO, started on IVF and antibiotics ( Ceftriaxone, Azithromycin), and admitted to medicine for observation. Surgery was asked to assess. She is seen and examined in bed with son at bedside. She is comfortable, and has minimal to no abdominal pain at this time, though is mildly tender. No BM today. She has been taking ice chips, but is otherwise NPO and is hungry. She has a headache but no fevers. No nausea now. She does report recent feelings of being off-balance at times, as well as getting SOB at home at rest and with exertion periodically. PMD is Dr. Robertson; she also sees Dr. Clifton (neurology) , Dr. He (GI), has not seen her broker in charge in about a year and is overdue for PAP, and is looking for a new orthopedist (referred to Dr. Mckeon last week from ER, but does not take her insurance). 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: Migraine Cardio/Vascular: Yes: HTN, Hyperlipdemia Pulmonary: Yes: Asthma, COPD Gastrointestinal: Yes: Constipation (has soft regular stools with Linzess ( taking about 6 months)), GERD, Pancreatitis (2 episodes in past) Renal/: Yes: Other (incontinence/frequency improved s/p stimulator) Reproductive: Yes: Postmenopausal ...: No Infectious Disease: Yes: MRSA (in right maxillary sinus pus 04/06/18) Psych: Yes: Bipolar, Depression Musculoskeletal: Yes: Chronic low back pain, Osteoarthritis, Other (Herniated discs, osteoporosis) ENT: Yes: Sinusitis Endocrine: Yes: Diabetes Mellitus, Hypothyroidism - Past Surgical History Past Surgical History: Yes: Appendectomy, Arthrosocopy (left knee), Cholecystectomy (laparoscopic), (x3), Tonsillectomy Additional Surgical History: pelvic neurostimulator (for bladder) in right upper gluteus last month ([facility] breast reduction, then augmentation, then implant removals; abdominoplasty; rotator cuff surgery x 2 on both right and left sides (twice each) - Alcohol/Substance Use Hx Alcohol Use: No (not for many years, socially) History of Substance Use: reports: Cocaine (in remote past, none for many years ) - Smoking History Smoking history: Former smoker Have you smoked in the past 12 months: Yes If you are a former smoker, when did you quit?: 2018, about 6 months ago - Social History Usual Living Arrangement: With Significant Other ADL: Independent Home Medications - Allergies Allergies/Adverse Reactions: Allergies Allergy/AdvReac Type Severity Reaction Status Date / Time No Known Allergies Allergy Verified 05/28/18 16:21 - Home Medications Home Medications: Ambulatory Orders Atorvastatin Ca [Lipitor] 20 mg PO HS #0 tab 04/28/17 Calcium (Oyster Shell) [Os-Malcolm 500MG -] 500 mg PO DAILY #0 tab 09/27/17 Canagliflozin [Invokana] 300 mg PO DAILY #0 tab 04/28/17 Gabapentin 600 mg PO TID #0 cap 04/28/17 Lamotrigine 150 mg PO DAILY #0 tab 04/28/17 Loratadine [Claritin -] 10 mg PO DAILY #30 tablet 04/28/17 Losartan Potassium 100 mg PO DAILY #0 tab 04/28/17 Omeprazole 40 mg PO DAILY #0 cap 04/28/17 Sodium Chloride Nasal [place] [[place] Nasal [place] -] 2 spray NS TID PRN #1 spray 04/28/17 Venlafaxine HCl ER [Effexor Xr -] 150 mg PO DAILY #0 cap 04/28/17 Acetaminophen W/ Codeine #3 [Tylenol # 3 -] 1 tab PO ONCE 05/23/18 traZODone HCL [Trazodone HCl] 100 mg PO HS 05/23/18 Montelukast Sodium [Singulair] 10 mg PO DAILY 05/28/18 Budesonide/Formeterol Fumarate [SYMBICORT 160/4.5mcg -] 1 inh PO DAILY 05/29/18 Linaclotide [Linzess] 72 mcg PO DAILY 05/29/18 Liraglutide [Victoza -] 1.2 mg SQ DAILY@0700 05/29/18 Tramadol HCl/Acetaminophen [Ultracet Tablet] 1 each PO BID PRN 05/29/18 Family Disease History - Family Disease History Family Disease History: Heart Disease: Sister ([place]), Other: Father (father's side with seizures but not him), Mother (mother's side with DM but not her) Other Family History: aunts with diabetes; aunt with metastatic lung cancer Review of Systems - Review of Systems Constitutional: reports: Loss of Appetite. denies: Chills, Fever Eyes: reports: Other (reading glasses). denies: Recent Change in Vision HENT: reports: Hearing Loss (has not gotten hearing aids yet). denies: Difficult Swallowing (resolving after recent sinus surgery), Throat Pain Neck: reports: Stiffness, Other (chronic pain - had injection from Dr. Clifton few months ago) Cardiovascular: denies: Chest Pain, Palpitations Respiratory: reports: SOB, SOB on Exertion. denies: Cough Gastrointestinal: reports: Abdominal Pain (with hpi), Nausea (with hpi), Vomiting (with hpi). denies: Constipation (not since being on Linzess), Diarrhea Genitourinary: reports: Frequency (better since stimulator placed), Incontinence (better since stimulator placed). denies: Burning, Dysuria Breasts: reports: See HPI Musculoskeletal: reports: Back Pain, Joint Pain (shoulders especially left) Integumentary: denies: Change in Color, Rash Neurological: reports: Dizziness (feelings of imbalance at times), Headache. denies: Syncope Physical Exam Vital Signs: Vital Signs Temperature 97.9 F 05/29/18 14:13 Pulse Rate 81 05/29/18 14:13 Respiratory Rate 18 05/29/18 14:13 Blood Pressure 129/78 05/29/18 14:13 O2 Sat by Pulse Oximetry (%) 97 05/29/18 09:00 Constitutional: Yes: Well Nourished, No Distress, Calm Eyes: Yes: Conjunctiva Clear, EOM Intact HENT: Yes: Atraumatic, Normocephalic Neck: Yes: Supple, Trachea Midline Cardiovascular: Yes: Regular Rate and Rhythm. No: Murmur Respiratory: Yes: Regular, CTA Bilaterally. No: Rhonchi, SOB, Wheezes Gastrointestinal: Yes: Normal Bowel Sounds, Soft, Hernia (small umbilical defect palpable), Tenderness (mild RUQ and around to flank, no annalee/guarding), Tenderness, Epigastrium (mild), Other (well healed abdominoplasty scars, lap vasiliy scars). No: Distention, Tenderness, Rebound ...Rectal Exam: Yes: Hemorrhoids/External, Hemorrhoids/Internal (softly palpable ), Sphincter Tone Normal, Other (small bit of soft yellow stool on tip of finger , vault essentially empty). No: Mass Renal/: Yes: CVA Tenderness - Right (mild). No: CVA Tenderness - Left Breast(s): Yes: Other (healed scars) Musculoskeletal: No: Back Pain (no direct tenderness), Joint Swelling Extremities: No: Cool, Cyanosis Edema: No Peripheral Pulses WNL: Yes Integumentary: Yes: Incision (healing scar at upper right buttock). No: Jaundice, Rash Neurological: Yes: Alert, Oriented Psychiatric: Yes: Alert, Oriented Labs: CBC, BMP 05/29/18 06:30 05/29/18 06:30 CMP Sodium 139 mmol/L (136-145) 05/29/18 06:30 Potassium 4.5 mmol/L (3.5-5.1) 05/29/18 06:30 Chloride 105 mmol/L (98-107) 05/29/18 06:30 Carbon Dioxide 27 mmol/L (21-32) 05/29/18 06:30 Anion Gap 7 MMOL/L (8-16) L 05/29/18 06:30 BUN 14 mg/dL (7-18) 05/29/18 06:30 Creatinine 0.8 mg/dL (0.55-1.3) 05/29/18 06:30 Creat Clearance w eGFR > 60 (>60) 05/29/18 06:30 POC Glucometer 105 UNITS (80-120) 05/29/18 12:15 Random Glucose 75 mg/dL (74-106) 05/29/18 06:30 Hemoglobin A1c % 6.9 % (4.2-6.3) H 05/29/18 09:22 Lactic Acid 1.3 mmol/L (0.4-2.0) 05/28/18 21:26 Calcium 8.6 mg/dL (8.5-10.1) 05/29/18 06:30 Total Bilirubin 0.2 mg/dL (0.2-1) 05/28/18 17:00 AST 23 U/L (15-37) 05/28/18 17:00 ALT 24 U/L (13-61) 05/28/18 17:00 Alkaline Phosphatase 58 U/L (45-117) 05/28/18 17:00 Total Protein 7.0 g/dl (6.4-8.2) 05/28/18 17:00 Albumin 3.5 g/dl (3.4-5.0) 05/28/18 17:00 Lipase 182 U/L (73-393) 05/28/18 17:00 Urine Test Results Urine Color Straw 05/28/18 Unknown Urine Appearance Clear 05/28/18 Unknown Urine pH 9.0 (5.0-8.0) H D 05/28/18 Unknown Ur Specific [place] 1.015 (1.010-1.035) 05/28/18 Unknown Urine Protein Negative (NEGATIVE) 05/28/18 Unknown Urine Glucose (UA) 3+ (NEGATIVE) H 05/28/18 Unknown Urine Ketones Negative (NEGATIVE) 05/28/18 Unknown Urine Blood Negative (NEGATIVE) 05/28/18 Unknown Urine Nitrite Negative (NEGATIVE) 05/28/18 Unknown Urine Bilirubin Negative (<2.0 mg/dL) 05/28/18 Unknown Ur Leukocyte Esterase Negative (NEGATIVE) 05/28/18 Unknown Imaging - Results Cat Scan: Report Reviewed (lung bases suggestive of possible pneumonia but chest CT done after abd/pelvis shows more likely atelectasis, though early infiltrate cannot be excluded), Image Reviewed (images personally reviewed - colon somewhat dilated with liquid stool present throughout, small bowel not dilated, s/p appy and vasiliy, no free air or fluid, stimulator noted in right buttock) Problem List - Problems (1) Abdominal pain Assessment/Plan: chronic abdominal pain as described by patient, may be multifactorial pt on Linzess for last 6 months, recent antibiotic courses for maxillary sinusitis, on chronic Ultracet but stopped several days ago pain present for at least a year, but worse in last few days present when not eating and also when she eats colon findings on CT consistent with loose/liquid stool or diarrhea, though not yet evacuated may also be related to recent ingestion of bowel agents (MOM, Mylanta, liquid diet) as well as abx? followed by Dr. He, GI as outpatient - she said he was here today and will follow up planned for EGD as outpt in June - consider doing while here defer to GI regarding whether Linzess should be resumed at this time NPO except meds, continue IV fluids important to continue home pain meds, as she is likely physiologically dependent on tramadol for acute pain beyond home medication doses, would try to avoid additional narcotics pt used to take Naproxen, but was taken off NSAIDs because of abdominal pain issues when Dr. Clifton gave her other med for her migraines check C. diff if patient has liquid stool no current indication for surgical intervention or acute surgical issue will follow with you for now discussed with Hina Young Code(s): R10.9 - UNSPECIFIED ABDOMINAL PAIN Qualifiers: Abdominal location: epigastric Qualified Code(s): R10.13 - Epigastric pain (2) Nausea and vomiting Code(s): R11.2 - NAUSEA WITH VOMITING, UNSPECIFIED Qualifiers: Vomiting type: unspecified Vomiting Intractability: non-intractable Qualified Code(s): R11.2 - Nausea with vomiting, unspecified (3) COPD (chronic obstructive pulmonary disease) Code(s): J44.9 - CHRONIC OBSTRUCTIVE PULMONARY DISEASE, UNSPECIFIED Qualifiers: COPD type: unspecified COPD Qualified Code(s): J44.9 - Chronic obstructive pulmonary disease, unspecified (4) HLD (hyperlipidemia) Code(s): E78.5 - HYPERLIPIDEMIA, UNSPECIFIED Qualifiers: Hyperlipidemia type: unspecified Qualified Code(s): E78.5 - Hyperlipidemia , unspecified (5) HTN (hypertension) Code(s): I10 - ESSENTIAL (PRIMARY) HYPERTENSION Qualifiers: Hypertension type: essential hypertension Qualified Code(s): I10 - Essential (primary) hypertension (6) Chronic pain Code(s): G89.29 - OTHER CHRONIC PAIN Qualifiers: Chronic pain type: other chronic pain Qualified Code(s): G89.29 - Other chronic pain (7) Controlled diabetes mellitus with complication, without long-term current use of insulin Assessment/Plan: on Invokana and Victoza at home Code(s): E11.8 - TYPE 2 DIABETES MELLITUS WITH UNSPECIFIED COMPLICATIONS Qualifiers: Diabetes mellitus type: type 2 Qualified Code(s): E11.8 - Type 2 diabetes mellitus with unspecified complications (8) H/O acute pancreatitis Code(s): Z87.19 - PERSONAL HISTORY OF OTHER DISEASES OF THE DIGESTIVE SYSTEM (9) Maxillary sinusitis, chronic Assessment/Plan: MRSA, Serratia and Pseudomonas from pus on right 04/06/18 s/p 3 courses antibiotics per pt, finished last one 2 days ago - does not know what drugs Code(s): J32.0 - CHRONIC MAXILLARY SINUSITIS (10) S/P implantation of urinary electronic stimulator device Assessment/Plan: 1 month ago Code(s): Z96.0 - PRESENCE OF UROGENITAL IMPLANTS
--- NOTE | 2018-05-29 20:24 | CON.GI ---
Consult Consult Specialty:: GI - History of Present Illness History of Present Illness: 62 y/o F with PMH of IBS, non ulcerative dyspepsia was admitted because of pneumonia. She has diffuse abdominal pain radiating to the right upper quadrant associated with excessive bloating. The pain is 8/10. This morning this has improved and is vey hungry. She has history of chronic Aspirin and NSAID use. She denies having recent dysphagia,weight loss, melena and rectal bleeding. 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 Cardio/Vascular: Yes: HTN, Hyperlipdemia Pulmonary: Yes: Asthma, COPD Gastrointestinal: Yes: Constipation (has soft regular stools with Linzess ( taking about 6 months)), GERD, Pancreatitis (2 episodes in past) Renal/: Yes: Other (incontinence/frequency improved s/p stimulator) ...: No Infectious Disease: Yes: MRSA (in right maxillary sinus pus 04/06/18) Psych: Yes: Bipolar, Depression Musculoskeletal: Yes: Chronic low back pain, Osteoarthritis, Other (Herniated discs, osteoporosis) ENT: Yes: Sinusitis Endocrine: Yes: Diabetes Mellitus, Hypothyroidism - Past Surgical History Past Surgical History: Yes: Appendectomy, Arthrosocopy (left knee), Cholecystectomy (laparoscopic), (x3), Tonsillectomy Additional Surgical History: pelvic neurostimulator (for bladder) in right upper gluteus last month ([facility]); breast reduction, then augmentation, then implant removals; abdominoplasty; rotator cuff surgery x 2 on both right and left sides (twice each) - Alcohol/Substance Use Hx Alcohol Use: No (not for many years, socially) History of Substance Use: reports: Cocaine (in remote past, none for many years ) - Smoking History Smoking history: Former smoker Have you smoked in the past 12 months: Yes Aproximately how many cigarettes per day: 1 If you are a former smoker, when did you quit?: 2018, about 6 months ago - Social History Usual Living Arrangement: With Significant Other ADL: Independent Home Medications - Allergies Allergies/Adverse Reactions: Allergies Allergy/AdvReac Type Severity Reaction Status Date / Time No Known Allergies Allergy Verified 05/28/18 16:21 - Home Medications Home Medications: Ambulatory Orders Atorvastatin Ca [Lipitor] 20 mg PO HS #0 tab 04/28/17 Calcium (Oyster Shell) [Os-Malcolm 500MG -] 500 mg PO DAILY #0 tab 04/28/17 Canagliflozin [Invokana] 300 mg PO DAILY #0 tab 04/28/17 Gabapentin 600 mg PO TID #0 cap 04/28/17 Lamotrigine 150 mg PO DAILY #0 tab 04/28/17 Loratadine [Claritin -] 10 mg PO DAILY #30 tablet 04/28/17 Losartan Potassium 100 mg PO DAILY #0 tab 04/28/17 Omeprazole 40 mg PO DAILY #0 cap 04/28/17 Sodium Chloride Nasal [place] [[place] Nasal [place] -] 2 spray NS TID PRN #1 spray 04/28/17 Venlafaxine HCl ER [Effexor Xr -] 150 mg PO DAILY #0 cap 04/28/17 Acetaminophen W/ Codeine #3 [Tylenol # 3 -] 1 tab PO ONCE 05/23/18 traZODone HCL [Trazodone HCl] 100 mg PO HS 05/23/18 Montelukast Sodium [Singulair] 10 mg PO DAILY 05/28/18 Budesonide/Formeterol Fumarate [SYMBICORT 160/4.5mcg -] 1 inh PO DAILY 05/29/18 Linaclotide [Linzess] 72 mcg PO DAILY 05/29/18 Liraglutide [Victoza -] 1.2 mg SQ DAILY@0700 05/29/18 Tramadol HCl/Acetaminophen [Ultracet Tablet] 1 each PO BID PRN 05/29/18 Family Disease History - Family Disease History Family Disease History: Heart Disease: Sister ([place]), Other: Father (father's side with seizures but not him), Mother (mother's side with DM but not her) Other Family History: aunts with diabetes; aunt with metastatic lung cancer Physical Exam-GI Vital Signs: Vital Signs Temperature 97.9 F 05/29/18 14:13 Pulse Rate 81 05/29/18 14:13 Respiratory Rate 18 05/29/18 14:13 Blood Pressure 129/78 05/29/18 14:13 O2 Sat by Pulse Oximetry (%) 97 05/29/18 09:00 Constitutional: Yes: No Distress Eyes: Yes: Conjunctiva Clear HENT: Yes: Atraumatic Neck: Yes: Supple Cardiovascular: Yes: Regular Rate and Rhythm Respiratory: Yes: CTA Bilaterally ...Auscultate: Yes: Normoactive Bowel Sounds ...Palpate: Yes: Soft, Tenderness (--diffuse). No: Firm/Rigid, Guarding, Hepatomegaly, Pulsatile Mass, Splenomegaly ...Percussion: Yes: Tympanitic Labs: CBC, BMP 05/29/18 06:30 05/29/18 06:30 Hepatic Panel Total Bilirubin 0.2 mg/dL (0.2-1) 05/28/18 17:00 AST 23 U/L (15-37) 05/28/18 17:00 ALT 24 U/L (13-61) 05/28/18 17:00 Alkaline Phosphatase 58 U/L (45-117) 05/28/18 17:00 Albumin 3.5 g/dl (3.4-5.0) 05/28/18 17:00 Problem List - Problems (1) Non-ulcer dyspepsia Assessment/Plan: avoid NSAID and Aspirin Protonix 40mg bis Reglan 5mg 30 min ac advance diet GI w/u as out patient Code(s): K30 - FUNCTIONAL DYSPEPSIA (2) IBS (irritable bowel syndrome) Assessment/Plan: constipation predominant suspect bacterial overgrowth R> low fiber , lactose free resume linzess once available may take her own medication avoid Narcotic use Code(s): K58.9 - IRRITABLE BOWEL SYNDROME WITHOUT DIARRHEA
[2018-05-29] MEDS: METOCLOPRAMIDE HCL 10 MG TABLET (FP) PO SCH (21:05)
[2018-05-29] MEDS: GABAPENTIN 300 MG CAPSULE (FP) PO SCH (21:06)
[2018-05-29] MEDS: MONTELUKAST NA 10 MG TABLET PO SCH (21:06)
[2018-05-29] MEDS: PANTOPRAZOLE 40 MG TABLET (FP) PO SCH (21:06)
[2018-05-29] MEDS ORDERED: PATIENT'S OWN MEDICATION (NON-FORMULARY) (Gabapentin [Gabapentin] 600 MG) PO SCH (22:00)
[2018-05-29] MEDS: traZODone HCL 50 MG TABLET (FP) PO SCH (23:55)
[2018-05-30] MEDS: METOCLOPRAMIDE HCL 10 MG TABLET (FP) PO SCH ×3 (06:05→16:25)
[2018-05-30] MEDS: GABAPENTIN 300 MG CAPSULE (FP) PO SCH ×3 (06:06→21:30)
[2018-05-30] MEDS: DEXTROSE 5%-0.45% SALINE 1,000 ML IV SCH ×2 (06:10→22:37)
--- NOTE | 2018-05-30 09:15 | PN ---
Progress Note, Physician Chief Complaint: AWAKE ALERT EVENTS AND NOTES REVIEWED COMFORTABLE STILL COUGHING - Current Medication List Current Medications: Active Medications Acetaminophen (Ofirmev Injection -) 1,000 mg IVPB Q6H PRN PRN Reason: PAIN OR FEVER Last Admin: 05/29/18 19:42 Dose: 1,000 mg Gabapentin (Neurontin -) 600 mg PO TID [facility] Last Admin: 05/30/18 06:06 Dose: 600 mg Heparin Sodium (Porcine) (Heparin -) 5,000 unit SQ BID [facility] Last Admin: 05/29/18 21:07 Dose: 5,000 unit Dextrose/Sodium Chloride (D5-1/2ns -) 1,000 mls @ 42 mls/hr IV ASDIR [facility] Last Admin: 05/30/18 06:10 Dose: 42 mls/hr Azithromycin (Zithromax 500mg Ivpb (Pre-Docked)) 500 mg in 250 mls @ 250 mls/ hr IVPB DAILY [facility] Last Admin: 05/29/18 12:04 Dose: 250 mls/hr Ceftriaxone Sodium 1 gm/ (Dextrose) 50 mls @ 100 mls/hr IVPB DAILY [facility]; Protocol Last Admin: 05/29/18 09:03 Dose: 100 mls/hr Lamotrigine (Lamictal -) 150 mg PO DAILY [facility] Losartan Potassium (Cozaar -) 100 mg PO DAILY [facility] Metoclopramide HCl (Reglan -) 5 mg PO TIDAC [facility] Last Admin: 05/30/18 06:05 Dose: 5 mg Metoprolol Tartrate (Lopressor Injection -) 5 mg IVPB Q4H PRN PRN Reason: HYPERTENSION Montelukast Sodium (Singulair -) 10 mg PO HS [facility] Last Admin: 05/29/18 21:06 Dose: 10 mg Morphine Sulfate (Morphine Sulfate) 4 mg IVPUSH Q6H PRN PRN Reason: PAIN LEVEL 6-10 Last Admin: 05/29/18 13:18 Dose: 4 mg Ondansetron HCl (Zofran Injection) 4 mg IVPUSH Q6H PRN PRN Reason: NAUSEA Last Admin: 05/29/18 19:42 Dose: 4 mg Pantoprazole Sodium (Protonix -) 40 mg PO BID [facility] Last Admin: 05/29/18 21:06 Dose: 40 mg Sodium Chloride ([place] Nasal [place] -) 2 spray NS Q8H PRN PRN Reason: NASAL CONGESTION Trazodone HCl (Desyrel -) 100 mg PO HS [facility] Last Admin: 05/29/18 23:55 Dose: 100 mg Venlafaxine HCl (Effexor Xr -) 150 mg PO DAILY@0800 [facility] - Objective Vital Signs: Vital Signs Temperature 97.5 F L 05/30/18 06:54 Pulse Rate 80 05/30/18 06:54 Respiratory Rate 18 05/30/18 06:54 Blood Pressure 116/69 05/30/18 06:54 O2 Sat by Pulse Oximetry (%) 97 05/29/18 21:00 Constitutional: Yes: Mild Distress Eyes: Yes: WNL HENT: Yes: WNL Neck: Yes: WNL Cardiovascular: Yes: WNL Respiratory: Yes: Cough, Wheezes Gastrointestinal: Yes: WNL Genitourinary: Yes: WNL Musculoskeletal: Yes: WNL Extremities: Yes: WNL Edema: No Peripheral Pulses WNL: Yes Integumentary: Yes: WNL Wound/Incision: Yes: Clean/Dry Neurological: Yes: WNL ...Motor Strength: WNL Psychiatric: Yes: WNL Labs: CBC, BMP 05/29/18 06:30 05/29/18 06:30 Problem List - Problems (1) Abdominal pain Code(s): R10.9 - UNSPECIFIED ABDOMINAL PAIN Qualifiers: Abdominal location: epigastric Qualified Code(s): R10.13 - Epigastric pain (2) Bilateral pneumonia Code(s): J18.9 - PNEUMONIA, UNSPECIFIED ORGANISM (3) COPD (chronic obstructive pulmonary disease) Code(s): J44.9 - CHRONIC OBSTRUCTIVE PULMONARY DISEASE, UNSPECIFIED Qualifiers: COPD type: unspecified COPD Qualified Code(s): J44.9 - Chronic obstructive pulmonary disease, unspecified (4) Controlled diabetes mellitus with complication, without long-term current use of insulin Code(s): E11.8 - TYPE 2 DIABETES MELLITUS WITH UNSPECIFIED COMPLICATIONS Qualifiers: Diabetes mellitus type: type 2 Qualified Code(s): E11.8 - Type 2 diabetes mellitus with unspecified complications (5) Diabetes Code(s): E11.9 - TYPE 2 DIABETES MELLITUS WITHOUT COMPLICATIONS (6) HLD (hyperlipidemia) Code(s): E78.5 - HYPERLIPIDEMIA, UNSPECIFIED Qualifiers: Hyperlipidemia type: unspecified Qualified Code(s): E78.5 - Hyperlipidemia , unspecified (7) HTN (hypertension) Code(s): I10 - ESSENTIAL (PRIMARY) HYPERTENSION Qualifiers: Hypertension type: essential hypertension Qualified Code(s): I10 - Essential (primary) hypertension Assessment/Plan IV ABX PULM EVAL NEBS 02 SUPPORT SURGERY EVAL ABD PAIN APPRECIATED NOW RESOLVED DVT PROPHYLAXIS OOB TO CHAIR
[2018-05-30] MEDS ORDERED: PATIENT'S OWN MEDICATION (NON-FORMULARY) (Losartan Potassium [Losartan Potassium] 100 MG) PO SCH (10:00)
[2018-05-30] MEDS ORDERED: LAMOTRIGINE 100 MG, LAMOTRIGINE 50 MG PO SCH (10:00)
[2018-05-30] MEDS ORDERED: LAMOTRIGINE 150 MG PO SCH (10:00)
[2018-05-30] MEDS ORDERED: PT OWN MED DRAWER 7, Y5N ONE (10:52)
[2018-05-30] MEDS: HEPARIN NA (PORCINE) 5,000 UNITS/ML 1ML VIAL SQ SCH ×2 (10:58→21:30)
[2018-05-30] MEDS: AZITHROMYCIN IVPB 500 MG/250 ML BAG IVPB SCH (10:58)
[2018-05-30] MEDS: VENLAFAXINE HCL 75 MG E.R. CAPSULES (FP) PO SCH (10:59)
[2018-05-30] MEDS: lamoTRIgine 100 MG TABLET (FP) PO SCH (10:59)
[2018-05-30] MEDS: LOSARTAN POTASSIUM 50 MG TABLET (FP) PO SCH (10:59)
[2018-05-30] MEDS: PANTOPRAZOLE 40 MG TABLET (FP) PO SCH ×2 (10:59→21:29)
[2018-05-30] MEDS: ACETAMINOPHEN 1000 MG/100 ML VIAL (NON FORMULARY) IVPB PRN ×2 (11:39→23:18)
[2018-05-30] MEDS ORDERED: DEXTROSE 5%-WATER - 50 ML IVPB ONE (12:33)
[2018-05-30] MEDS ORDERED: cefTRIAXone SODIUM 1 GM VIAL ONE (12:33)
[2018-05-30] MEDS: CEFTRIAXONE 1 GM in DEXTROSE 5%-WATER - 50 ML IVPB SCH (12:35)
--- NOTE | 2018-05-30 15:08 | PN ---
Progress Note, Physician Chief Complaint: Felling better Still with c/o epigastric discomfort No N/V No BM since admission No c/o chest pain/ cough/ sputum Afebrile WBC WNL - Current Medication List Current Medications: Active Medications Acetaminophen (Ofirmev Injection -) 1,000 mg IVPB Q6H PRN PRN Reason: PAIN OR FEVER Last Admin: 05/30/18 11:39 Dose: 1,000 mg Gabapentin (Neurontin -) 600 mg PO TID [facility] Last Admin: 05/30/18 14:02 Dose: 600 mg Heparin Sodium (Porcine) (Heparin -) 5,000 unit SQ BID [facility] Last Admin: 05/30/18 10:58 Dose: 5,000 unit Dextrose/Sodium Chloride (D5-1/2ns -) 1,000 mls @ 42 mls/hr IV ASDIR [facility] Last Admin: 05/30/18 06:10 Dose: 42 mls/hr Azithromycin (Zithromax 500mg Ivpb (Pre-Docked)) 500 mg in 250 mls @ 250 mls/ hr IVPB DAILY [facility] Last Admin: 05/30/18 10:58 Dose: 250 mls/hr Ceftriaxone Sodium 1 gm/ (Dextrose) 50 mls @ 100 mls/hr IVPB DAILY [facility]; Protocol Last Admin: 05/30/18 12:35 Dose: 100 mls/hr Lamotrigine (Lamictal -) 150 mg PO DAILY [facility] Last Admin: 05/30/18 10:59 Dose: 150 mg Losartan Potassium (Cozaar -) 100 mg PO DAILY [facility] Last Admin: 05/30/18 10:59 Dose: 100 mg Metoclopramide HCl (Reglan -) 5 mg PO TIDAC [facility] Last Admin: 05/30/18 10:58 Dose: 5 mg Metoprolol Tartrate (Lopressor Injection -) 5 mg IVPB Q4H PRN PRN Reason: HYPERTENSION Montelukast Sodium (Singulair -) 10 mg PO HS [facility] Last Admin: 05/29/18 21:06 Dose: 10 mg Ondansetron HCl (Zofran Injection) 4 mg IVPUSH Q6H PRN PRN Reason: NAUSEA Last Admin: 05/29/18 19:42 Dose: 4 mg Pantoprazole Sodium (Protonix -) 40 mg PO BID [facility] Last Admin: 10/29/18 10:59 Dose: 40 mg Sodium Chloride ([place] Nasal [place] -) 2 spray NS Q8H PRN PRN Reason: NASAL CONGESTION Last Admin: 05/30/18 10:58 Dose: 2 spray Trazodone HCl (Desyrel -) 100 mg PO HS [facility] Last Admin: 05/29/18 23:55 Dose: 100 mg Venlafaxine HCl (Effexor Xr -) 150 mg PO DAILY@0800 [facility] Last Admin: 05/30/18 10:59 Dose: 150 mg - Objective Vital Signs: Vital Signs Temperature 97.9 F 05/30/18 14:53 Pulse Rate 81 05/30/18 14:53 Respiratory Rate 18 05/30/18 14:53 Blood Pressure 141/71 05/30/18 14:53 O2 Sat by Pulse Oximetry (%) 97 05/29/18 21:00 Constitutional: Yes: No Distress Eyes: Yes: Conjunctiva Clear Cardiovascular: Yes: Regular Rate and Rhythm, S1, S2 Respiratory: Yes: Other (+ crepitations L base) Gastrointestinal: Yes: Normal Bowel Sounds, Soft, Tenderness, Other (+ epigastric tenderness) Edema: No Labs: CBC, BMP 05/29/18 06:30 05/29/18 06:30 Assessment/Plan Abdominal pain syndrome Basilar pneumonia Continue zithromax/ ceftriaxone
--- NOTE | 2018-05-30 17:19 | PN ---
Progress Note, Physician History of Present Illness: No overnight events. GI consult noted. She is seen and examined in bed, resting comfortably. She reports improvement in pain, but still has occasional pains in epigastric area. No BM today. She tolerated clears, but is hungry for more. - Current Medication List Current Medications: Active Medications Acetaminophen (Ofirmev Injection -) 1,000 mg IVPB Q6H PRN PRN Reason: PAIN OR FEVER Last Admin: 05/30/18 11:39 Dose: 1,000 mg Gabapentin (Neurontin -) 600 mg PO TID [facility] Last Admin: 05/30/18 14:02 Dose: 600 mg Heparin Sodium (Porcine) (Heparin -) 5,000 unit SQ BID [facility] Last Admin: 05/30/18 10:58 Dose: 5,000 unit Dextrose/Sodium Chloride (D5-1/2ns -) 1,000 mls @ 42 mls/hr IV ASDIR [facility] Last Admin: 05/30/18 06:10 Dose: 42 mls/hr Azithromycin (Zithromax 500mg Ivpb (Pre-Docked)) 500 mg in 250 mls @ 250 mls/ hr IVPB DAILY [facility] Last Admin: 05/30/18 10:58 Dose: 250 mls/hr Ceftriaxone Sodium 1 gm/ (Dextrose) 50 mls @ 100 mls/hr IVPB DAILY [facility]; Protocol Last Admin: 05/30/18 12:35 Dose: 100 mls/hr Lamotrigine (Lamictal -) 150 mg PO DAILY [facility] Last Admin: 05/30/18 10:59 Dose: 150 mg Losartan Potassium (Cozaar -) 100 mg PO DAILY [facility] Last Admin: 05/30/18 10:59 Dose: 100 mg Metoclopramide HCl (Reglan -) 5 mg PO TIDAC [facility] Last Admin: 05/30/18 16:25 Dose: 5 mg Metoprolol Tartrate (Lopressor Injection -) 5 mg IVPB Q4H PRN PRN Reason: HYPERTENSION Montelukast Sodium (Singulair -) 10 mg PO HS [facility] Last Admin: 05/29/18 21:06 Dose: 10 mg Ondansetron HCl (Zofran Injection) 4 mg IVPUSH Q6H PRN PRN Reason: NAUSEA Last Admin: 05/29/18 19:42 Dose: 4 mg Pantoprazole Sodium (Protonix -) 40 mg PO BID [facility] Last Admin: 05/30/18 10:59 Dose: 40 mg Sodium Chloride ([place] Nasal [place] -) 2 spray NS Q8H PRN PRN Reason: NASAL CONGESTION Last Admin: 05/30/18 10:58 Dose: 2 spray Trazodone HCl (Desyrel -) 100 mg PO HS [facility] Last Admin: 05/29/18 23:55 Dose: 100 mg Venlafaxine HCl (Effexor Xr -) 150 mg PO DAILY@0800 [facility] Last Admin: 05/30/18 10:59 Dose: 150 mg - Objective Vital Signs: Vital Signs Temperature 97.9 F 05/30/18 14:53 Pulse Rate 81 05/30/18 14:53 Respiratory Rate 18 05/30/18 14:53 Blood Pressure 141/71 05/30/18 14:53 O2 Sat by Pulse Oximetry (%) 96 05/30/18 09:00 Constitutional: Yes: Well Nourished, No Distress, Calm Eyes: Yes: Conjunctiva Clear, EOM Intact HENT: Yes: Atraumatic, Normocephalic Gastrointestinal: Yes: Soft, Hernia (small umbilical), Tenderness (very mild RLQ /suprapubic - may be related to bladder pressure?), Tenderness, Epigastrium ( mild, less than yesterday). No: Distention, Tenderness, Rebound, Vomiting ...Rectal Exam: Yes: Deferred Extremities: No: Cool, Cyanosis Integumentary: No: Jaundice, Rash Neurological: Yes: Alert, Oriented Labs: no new labs - ....Imaging X-ray: Image Reviewed (image personally reviewed - no sig dilated loops SB or LB , nonspecific gas pattern; report pending) Problem List - Problems (1) Abdominal pain Assessment/Plan: chronic abdominal pain as described by patient, may be multifactorial pt on Linzess for last 6 months, recent antibiotic courses for maxillary sinusitis, on chronic Ultracet but stopped several days ago pain present for at least a year, but worse in last few days present when not eating and also when she eats improved somewhat overall colon findings on CT consistent with loose/liquid stool or diarrhea, though not yet evacuated may also be related to recent ingestion of bowel agents (MOM, Mylanta, liquid diet) as well as abx? no BM yet but anticipate loose/liquid stool when it happens GI consult noted - to f/u as outpatient for planned scope on clears, advancing for dinner as per GI important to continue home pain meds, as she is likely physiologically dependent on tramadol for acute pain beyond home medication doses, would try to avoid additional narcotics and NSAIDs check C. diff if patient has liquid stool no current indication for surgical intervention or acute surgical issue identified agree with GI assessment will sign off, please re-call if needed Code(s): R10.9 - UNSPECIFIED ABDOMINAL PAIN Qualifiers: Abdominal location: epigastric Qualified Code(s): R10.13 - Epigastric pain (2) Nausea and vomiting Code(s): R11.2 - NAUSEA WITH VOMITING, UNSPECIFIED Qualifiers: Vomiting type: unspecified Vomiting Intractability: non-intractable Qualified Code(s): R11.2 - Nausea with vomiting, unspecified (3) COPD (chronic obstructive pulmonary disease) Code(s): J44.9 - CHRONIC OBSTRUCTIVE PULMONARY DISEASE, UNSPECIFIED Qualifiers: COPD type: unspecified COPD Qualified Code(s): J44.9 - Chronic obstructive pulmonary disease, unspecified (4) HLD (hyperlipidemia) Code(s): E78.5 - HYPERLIPIDEMIA, UNSPECIFIED Qualifiers: Hyperlipidemia type: unspecified Qualified Code(s): E78.5 - Hyperlipidemia , unspecified (5) HTN (hypertension) Code(s): I10 - ESSENTIAL (PRIMARY) HYPERTENSION Qualifiers: Hypertension type: essential hypertension Qualified Code(s): I10 - Essential (primary) hypertension (6) Chronic pain Code(s): G89.29 - OTHER CHRONIC PAIN Qualifiers: Chronic pain type: other chronic pain Qualified Code(s): G89.29 - Other chronic pain (7) Controlled diabetes mellitus with complication, without long-term current use of insulin Code(s): E11.8 - TYPE 2 DIABETES MELLITUS WITH UNSPECIFIED COMPLICATIONS Qualifiers: Diabetes mellitus type: type 2 Qualified Code(s): E11.8 - Type 2 diabetes mellitus with unspecified complications (8) H/O acute pancreatitis Code(s): Z87.19 - PERSONAL HISTORY OF OTHER DISEASES OF THE DIGESTIVE SYSTEM (9) Maxillary sinusitis, chronic Code(s): J32.0 - CHRONIC MAXILLARY SINUSITIS (10) S/P implantation of urinary electronic stimulator device Code(s): Z96.0 - PRESENCE OF UROGENITAL IMPLANTS
[2018-05-30] MEDS: traZODone HCL 50 MG TABLET (FP) PO SCH (21:29)
[2018-05-30] MEDS: MONTELUKAST NA 10 MG TABLET PO SCH (22:39)
[2018-05-30] MEDS ORDERED: traZODone HCL 50 MG TABLET (FP) PO ONE (23:30)
[2018-05-31] MEDS: GABAPENTIN 300 MG CAPSULE (FP) PO SCH ×2 (05:51→13:15)
[2018-05-31] MEDS: METOCLOPRAMIDE HCL 10 MG TABLET (FP) PO SCH ×2 (06:07→11:15)
--- NOTE | 2018-05-31 07:20 | DS ---
Physical Examination Vital Signs: Vital Signs Temperature 98 F 05/31/18 06:20 Pulse Rate 75 05/31/18 06:20 Respiratory Rate 20 05/31/18 06:20 Blood Pressure 130/70 05/31/18 06:20 O2 Sat by Pulse Oximetry (%) 96 05/30/18 21:00 Constitutional: Yes: No Distress Eyes: Yes: WNL HENT: Yes: WNL Neck: Yes: WNL Cardiovascular: Yes: WNL Respiratory: Yes: CTA Bilaterally Gastrointestinal: Yes: WNL Renal/: Yes: WNL Musculoskeletal: Yes: WNL Extremities: Yes: WNL Edema: No Peripheral Pulses WNL: Yes Integumentary: Yes: WNL Wound/Incision: Yes: Clean/Dry Neurological: Yes: WNL ...Motor Strength: WNL Psychiatric: Yes: WNL Labs: CBC, BMP 05/29/18 06:30 05/29/18 06:30 Discharge Summary Reason For Visit: DIABETES MELLITUS,BILATERAL PNEUMONIA Current Active Problems Abdominal pain (Acute) Bilateral pneumonia (Acute) COPD (chronic obstructive pulmonary disease) (Acute) Controlled diabetes mellitus with complication, without long-term current use of insulin (Acute) Diabetes (Acute) H/O acute pancreatitis (Acute) HLD (hyperlipidemia) (Acute) HTN (hypertension) (Acute) Hypothyroidism (Acute) IBS (irritable bowel syndrome) (Acute) Ileus (Acute) Maxillary sinusitis, chronic (Acute) Nausea and vomiting (Acute) Non-ulcer dyspepsia (Acute) S/P implantation of urinary electronic stimulator device (Acute) Procedures: Principal: ct chest/labs/xrays/cx Hospital Course: iv abx, nebs, treated for pna early changes on ct scan, improved Condition: Improved - Instructions Diet, Activity, Other Instructions: see Dr Robertson your PMD in 1-2 days Disposition: HOME - Home Medications Comprehensive Discharge Medication List: Ambulatory Orders Atorvastatin Ca [Lipitor] 20 mg PO HS #0 tab 04/28/17 Calcium ([place]) [Os-[place] 500MG -] 500 mg PO DAILY #0 tab 04/28/17 Canagliflozin [Invokana] 300 mg PO DAILY #0 tab 04/28/17 Gabapentin 600 mg PO TID #0 cap 04/28/17 Lamotrigine 150 mg PO DAILY #0 tab 04/28/17 Loratadine [Claritin -] 10 mg PO DAILY #30 tablet 04/28/17 Losartan Potassium 100 mg PO DAILY #0 tab 04/28/17 Omeprazole 40 mg PO DAILY #0 cap 04/28/17 Sodium Chloride Nasal [place] [[place] Nasal [place] -] 2 spray NS TID PRN #1 spray 04/28/17 Venlafaxine HCl ER [Effexor Xr -] 150 mg PO DAILY #0 cap 04/28/17 Acetaminophen W/ Codeine #3 [Tylenol # 3 -] 1 tab PO ONCE 05/23/18 traZODone HCL [Trazodone HCl] 100 mg PO HS 05/23/18 Montelukast Sodium [Singulair] 10 mg PO DAILY 05/28/18 Budesonide/Formeterol Fumarate [SYMBICORT 160/4.5mcg -] 1 inh PO DAILY 05/29/18 Linaclotide [Linzess] 72 mcg PO DAILY 05/29/18 Liraglutide [Victoza -] 1.2 mg SQ DAILY@0700 05/29/18 Tramadol HCl/Acetaminophen [Ultracet Tablet] 1 each PO BID PRN 05/29/18
[2018-05-31] MEDS ORDERED: PT OWN MED DRAWER 7, Y5N ONE (08:38)
[2018-05-31] MEDS: VENLAFAXINE HCL 75 MG E.R. CAPSULES (FP) PO SCH (08:52)
[2018-05-31] MEDS ORDERED: cefTRIAXone SODIUM 1 GM VIAL ONE (11:09)
[2018-05-31] MEDS ORDERED: DEXTROSE 5%-WATER - 50 ML IVPB ONE (11:10)
[2018-05-31] MEDS: LOSARTAN POTASSIUM 50 MG TABLET (FP) PO SCH (11:15)
[2018-05-31] MEDS: PANTOPRAZOLE 40 MG TABLET (FP) PO SCH (11:15)
[2018-05-31] MEDS: CEFTRIAXONE 1 GM in DEXTROSE 5%-WATER - 50 ML IVPB SCH (11:16)
[2018-05-31] MEDS: HEPARIN NA (PORCINE) 5,000 UNITS/ML 1ML VIAL SQ SCH (11:17)
[2018-05-31] MEDS: lamoTRIgine 100 MG TABLET (FP) PO SCH (11:19)
--- NOTE | 2018-05-31 11:31 | PN ---
GI Progress Note Subjective: saw the patietn last evening, tolerating solid food, no nausea and vomiting - Objective Vital Signs: Vital Signs Temperature 98 F 05/31/18 06:20 Pulse Rate 75 05/31/18 06:20 Respiratory Rate 20 05/31/18 06:20 Blood Pressure 130/70 05/31/18 06:20 O2 Sat by Pulse Oximetry (%) 96 05/30/18 21:00 Constitutional: Well Nourished Eyes: Yes: Conjunctiva Clear HENT: Yes: Atraumatic Neck: Yes: Supple Cardiovascular: Yes: Regular Rate and Rhythm Respiratory: Yes: CTA Bilaterally ...Palpate: Yes: Soft. No: Firm/Rigid, Guarding, Hepatomegaly, Splenomegaly, Tenderness, Tenderness, Epigastium Labs: CBC, BMP 05/29/18 06:30 05/29/18 06:30 Current Medications Generic Name Dose Route Start Last Admin Trade Name Freq PRN Reason Stop Dose Admin Gabapentin 600 mg 05/29/18 22:00 05/31/18 05:51 Neurontin - PO 600 mg TID ALLI Administration Heparin Sodium (Porcine) 5,000 unit 05/29/18 10:00 05/31/18 11:17 Heparin - SQ 5,000 unit BID ALLI Administration Dextrose/Sodium Chloride 1,000 mls @ 42 mls/hr 05/28/18 21:45 05/30/18 22:37 D5-1/2ns - IV Not Given ASDIR [facility]I Azithromycin 500 mg in 250 mls @ 250 mls/hr 05/29/18 10:00 05/30/18 10:58 Zithromax 500mg Ivpb (Pre-Docked) IVPB 250 mls/hr DAILY [facility] Administration Ceftriaxone Sodium 1 gm/ 50 mls @ 100 mls/hr 05/29/18 10:00 05/31/18 11:16 Dextrose IVPB 100 mls/hr DAILY [facility]I Administration Protocol Lamotrigine 150 mg 05/30/18 10:00 05/31/18 11:19 Lamictal - PO 150 mg DAILY [facility] Administration Losartan Potassium 100 mg 05/30/18 10:00 05/31/18 11:15 Cozaar - PO 100 mg DAILY [facility] Administration Metoclopramide HCl 5 mg 05/29/18 20:30 05/31/18 11:15 Reglan - PO 5 mg TIDAC [facility]I Administration Metoprolol Tartrate 5 mg 05/29/18 09:02 Lopressor Injection - IVPB Q4H PRN HYPERTENSION Montelukast Sodium 10 mg 05/29/18 22:00 05/30/18 22:39 Singulair - PO 10 mg HS [facility]I Administration Ondansetron HCl 4 mg 05/28/18 21:33 05/29/18 19:42 Zofran Injection IVPUSH 4 mg Q6H PRN Administration NAUSEA Pantoprazole Sodium 40 mg 05/29/18 22:00 05/31/18 11:15 Protonix - PO 40 mg BID [facility]I Administration Sodium Chloride 2 spray 05/29/18 16:33 05/30/18 10:58 [place] Nasal [place] - NS 2 spray Q8H PRN Administration NASAL CONGESTION Trazodone HCl 100 mg 05/29/18 23:45 05/30/18 21:29 Desyrel - PO 100 mg HS [facility]I Administration Venlafaxine HCl 150 mg 05/30/18 08:00 05/31/18 08:52 Effexor Xr - PO 150 mg DAILY@0800 [facility]I Administration Problem List - Problems (1) Non-ulcer dyspepsia Assessment/Plan: resume Pantoprazole 40mg bid Code(s): K30 - FUNCTIONAL DYSPEPSIA (2) IBS (irritable bowel syndrome) Assessment/Plan: R> low fiber lactose free Code(s): K58.9 - IRRITABLE BOWEL SYNDROME WITHOUT DIARRHEA Qualifiers: Qualified Code(s): K58.9 - Irritable bowel syndrome without diarrhea
[2018-05-31] MEDS: AZITHROMYCIN IVPB 500 MG/250 ML BAG IVPB SCH (13:06)
[2018-05-31] MEDS ORDERED: ACETAMINOPHEN 325 MG TABLET (FP) PO PRN (14:04)
[2018-05-31 14:54] VITALS: BP 130/70; PULSE 84; TEMP 98.4
== END 2018-05-31 16:00 | disposition home or self-care (01) | DRG 139 ==
LOC: JER 15:59 → JERBED 21:17 → J8W 05-29 01:06 → OBSVTOIN 05-31 08:11
PROVIDERS: ADMIT Internal Medicine; ATTEND Family Medicine
DX: J18.9 Pneumonia, unspecified organism (principal); R10.9 Unspecified abdominal pain; J44.9 Chronic obstructive pulmonary disease, unspecified; I10 Essential (primary) hypertension; E78.5 Hyperlipidemia, unspecified; E03.9 Hypothyroidism, unspecified; E11.9 Type 2 diabetes mellitus without complications; K58.9 Irritable bowel syndrome, unspecified; K30 Functional dyspepsia
CPT/HCPCS: 36415; 71046-TC-FY; 71250-TC; 74018-TC-FY; 74177-TC; 80048; 80053; 81003; 82962; 83036; 83605; 83690; 85025; 87040; 87070; 87205; 87899; 93005; 93010; 94761; 99284-25; G0378; J0131; J1644; J7030

== ENCOUNTER 2018-06-30 17:55 | Emergency (ER) | payer OTHER ==
[2018-06-30 18:24] VITALS: TEMP 98.2; BMI 26.6
--- NOTE | 2018-06-30 18:27 | PDOC ---
Rapid Medical Evaluation Chief Complaint: Shortness of Breath Time Seen by Provider: 06/30/18 18:23 Medical Evaluation: Allergies Allergy/AdvReac Type Severity Reaction Status Date / Time No Known Allergies Allergy Verified 05/28/18 16:21 06/30/18 18:23 I have performed a brief in-person evaluation of this patient. The patient presents with a chief complaint of: pt with h/o COPD cough, SOB and chest wall pain when coughing. report pain when press on left side of chest wall which she believes is not related to her heart. report h/o pneumonia a month ago Pertinent physical exam findings: mild tenderness to left 2nd intercostal space. heart RRR. lungs CTAB I have ordered the following: chest x-ray The patient will proceed to the ED for further evaluation Discharge Disposition - Diagnosis Cough, Chest wall pain COPD (chronic obstructive pulmonary disease) Qualifiers: COPD type: unspecified COPD Qualified Code(s): J44.9 - Chronic obstructive pulmonary disease, unspecified - Referrals - Patient Instructions - Post Discharge Activity
--- NOTE | 2018-06-30 18:42 | PDOC ---
History of Present Illness - General Chief Complaint: Shortness of Breath Stated Complaint: SHORTNESS OF BREATH Time Seen by Provider: 06/30/18 18:23 - History of Present Illness Initial Comments: Phylicia Alonso is a 62yo woman with a PMH of HTN, HLD, DM, COPD, pancreatitis, hypothyroidism, pyelonephritis, and who reports recent admisison for pneumonia who presents today with left upper back pain that has progressed around to the left chest. She reports that the pain started in the left upper back 4-5 days ago and worsens when she moves her arms or lays down on her back. She has been taking tramadol at home for the pain with some relief. She has also been applying pain patches, also with some improvement. Over the past 2 days, Ms Alonso has noted that the pain as extended around her left side onto the left chest. The pain is not worsened by deep breaths, but she also reports SOB that is worsened from baseline. This SOB is not associated with activity, and she reports that she is compliant with her COPD medications. She is concerned that the previous pneumonia has come back. However, she denies signs of fevers, chills, or cough. Ms Rico additionally reports nausea, but she states that this is chronic. She was previously seen by Dr He, had an EGD, and was prescribed a medication for acid that she continues to take. Past History - Past Medical History Allergies/Adverse Reactions: Allergies Allergy/AdvReac Type Severity Reaction Status Date / Time No Known Allergies Allergy Verified 05/28/18 16:21 Home Medications: Ambulatory Orders Atorvastatin Ca [Lipitor] 20 mg PO HS #0 tab 04/28/17 Canagliflozin [Invokana] 300 mg PO DAILY #0 tab 04/28/17 Loratadine [Claritin -] 10 mg PO DAILY #30 tablet 04/28/17 Omeprazole 40 mg PO DAILY #0 cap 04/28/17 Venlafaxine HCl ER [Effexor Xr -] 150 mg PO DAILY #0 cap 04/28/17 traZODone HCL [Trazodone HCl] 100 mg PO HS 05/23/18 Montelukast Sodium [Singulair] 10 mg PO DAILY 05/28/18 Budesonide/Formeterol Fumarate [SYMBICORT 160/4.5mcg -] 1 inh PO DAILY 05/29/18 Linaclotide [Linzess] 72 mcg PO DAILY 05/29/18 Tramadol HCl/Acetaminophen [Ultracet Tablet] 1 each PO BID PRN 05/29/18 Gabapentin [Neurontin -] 600 mg PO TID #90 capsule 05/31/18 Losartan Potassium [Cozaar -] 100 mg PO DAILY tablet 05/31/18 Acetaminophen [Tylenol .Extra-Strength -] 1,000 mg PO Q8H PRN 7 Days #21 tablet 06/30/18 Lamotrigine [LaMICtal -] 100 mg PO DAILY 06/30/18 Anemia: No Asthma: Yes Cancer: No Cardiac Disorders: No CVA: No COPD: Yes CHF: No Dementia: No Diabetes: Yes (NIDM) GI Disorders: No Disorders: No HTN: Yes Hypercholesterolemia: Yes Liver Disease: No Seizures: No Thyroid Disease: Yes (HYPO.) - Surgical History Appendectomy: Yes Cholecystectomy: Yes Orthopedic Surgery: Yes (rotator cuff cyst removal) - Immunization History Td Vaccination: No TDAP Vaccination: No Immunization Up to Date: No - Suicide/Smoking/Psychosocial Hx Smoking History: Former smoker Have you smoked in the past 12 months: No Number of Cigarettes Smoked Daily: 1 If you are a former smoker, when did you quit?: 2018 Cigars Per Day: 0 Information on smoking cessation initiated: No 'Breaking Loose' booklet given: 04/26/17 Hx Alcohol Use: No Drug/Substance Use Hx: No Substance Use Type: None Hx Substance Use Treatment: No Review of Systems - Review of Systems Comments:: General: No fevers, no chills, no weight or appetite change, no malaise HEENT: No changes in vision, no changes in hearing, no congestion, no sore throat CV: +Chest pain see HPI. No palpitations, no LE edema Pulm: +chronic SOB, no cough, no wheezing GI: +Nausea (chronic), No vomiting, no change in bowel habits, no melena : No frequency, no urgency, no dysuria Musc: +Left back pain. No joint swelling, no recent injury Skin: No rash, no lesions, no erythema Endo: No excessive thirst, no heat/cold intolerance Heme: No unusual bruising or bleeding, no swollen glands Neuro: No syncope, no numbness/tingling, no focal weakness Vasc: No claudication Psych: No recent change in mood, no SI or HI *Physical Exam - Vital Signs Last Vital Signs Temp Pulse Resp BP Pulse Ox 98.2 F 83 16 97/67 100 06/30/18 18:19 06/30/18 18:19 06/30/18 18:19 06/30/18 18:19 06/30/18 18:19 - Physical Exam Comments: General: Comfortable, no acute distress HEENT: PERRL, EOMI, MMM, voice normal, normal neck ROM, no LAD Cards: RRR, no murmur appreciated Pulm: Comfortable on room air, clear to auscultation bilaterally Abd: Soft, nontender, nondistended : No CVA tenderness Ext: Atraumatic. ROM intact. Strength 5/5 and equal bilaterally Vasc: Extremities WWP. Skin: Normal color, no rashes or lesions Neuro: A&Ox3, CN grossly intact, normal speech, motor/sensory grossly intact and symmetric Psych: Mood appropriate to situation Moderate Sedation - Procedure Monitoring Vital Signs: Procedure Monitoring Vital Signs Temperature 98.2 F 06/30/18 18:19 Pulse Rate 83 06/30/18 18:19 Respiratory Rate 16 06/30/18 18:19 Blood Pressure 97/67 06/30/18 18:19 O2 Sat by Pulse Oximetry (%) 100 06/30/18 18:19 ED Treatment Course - LABORATORY CBC & Chemistry Diagram: 06/30/18 20:40 06/30/18 20:40 Medical Decision Making - Medical Decision Making 06/30/18 18:30 Attempted to see pt. Not present in vertical area. 06/30/18 19:53 Phylicia Alonso is a 62yo woman with a PMH of HTN, HLD, DM, COPD, pancreatitis, hypothyroidism, pyelonephritis, and who reports recent admisison for pneumonia who presents today with left upper back pain that has progressed around to the left chest. She also reports SOB that is worsened from baseline but denies signs of infection, cough, or noncompliance with her COPD meds. Ms Alonso is a poor historian and unable to relate exactly when her symptoms started or how they are different than her baseline state of health. - Benign lung exam; clear b/l with good air movement and no wheezing or crackles. - Pain reproducible, worsened with arm or torso movement. Not pleuritic. Overall , exam and history are not suggestive of pneumonia or pulmonary infection. - Reports worsening dyspnea, left sided chest pain. EKG and trop ordered to r/o ACS - CBC, CMP to evaluate for abnormalities. h/o pancreatitis, adding amylase and lipase. 06/30/18 21:35 - Labs reviewed; unremarkable - EKG completed. NSR without abnormalities noted - CXR completed. Improvement from previous CXR one month ago. - Discussed results with Ms Alonso. Most likely muscular pain or costochondritis. - Discussed home care, follow up, return precautions. Ms Alonso states understanding Discussed with Dr Diaz. Brenda Peter PGY1 *DC/Admit/Observation/Transfer Diagnosis at time of Disposition: Cough, Chest wall pain COPD (chronic obstructive pulmonary disease) Qualifiers: COPD type: unspecified COPD Qualified Code(s): J44.9 - Chronic obstructive pulmonary disease, unspecified - Discharge Dispostion Disposition: HOME Condition at time of disposition: Stable Decision to Admit order: No - Prescriptions Prescriptions: Acetaminophen [Tylenol .Extra-Strength -] 1,000 mg PO Q8H PRN 7 Days #21 tablet PRN Reason: Pain - Referrals Referrals: Danny Robertson [Primary Care Provider] - - Patient Instructions Printed Discharge Instructions: DI for Costochondritis Additional Instructions: Discharge Instructions: You were seen in the emergency department with pain to the left back and left chest. You had blood tests done that were normal. You also had a chest xray that looked improved since your hospital admission. Your heart was also evaluated with an EKG and a blood test; these were normal as well. Your pain is most likely due to muscular pain. You can use acetaminophen ( Tylenol) two tablets every 6 hours OR ibuprofen (Motrin or Advil) 600mg (3 tablets) every 6-8 hours for pain. You may have some pain relief from applying heat or ice packs to the area. Follow up with your primary doctor within the next week for follow up. Seek immediate medical care if you have worsening shortness of breath, chest pain associated with exercise or that occurs along with sweating, nausea/ vomiting, or lightheadedness, or if you have any medical emergency. - Post Discharge Activity
--- NOTE | 2018-06-30 19:32 | PDOC ---
Attending Attestation - Resident Resident Name: PitoumaBrenda - ED Attending Attestation I have performed the following: I have examined & evaluated the patient, The case was reviewed & discussed with the resident, I agree w/resident's findings & plan, Exceptions are as noted - HPI HPI: 06/30/18 19:31 62y F hx COPD, of admission for pna presents with pain in the L back and L chest pain, seems to be worse with movement of her arm. Pain is been going on for last week or so seems worse when she is moving her L arm. The patient denies any exertional chest pain, fever, chills endorses a slight intermittent cough without any phlegm or hemoptysis. No leg swelling. He does endorse a little bit of nausea visit to go on for several weeks she was evaluated in the hospital by Dr. He as well as as an outpatient had endoscopy which revealed suspected gastritis. She denies any abdominal pain, and his, tingling, diarrhea , urinary symptoms pm: julian gardner - Physicial Exam PE: 06/30/18 20:13 GENERAL: The patient is awake, alert, and fully oriented, Nontoxic - in no acute distress. HEAD: Normocephalic, atraumatic. EYES: extraocular movements intact, sclera anicteric, conjunctiva clear. ENT: Normal voice, Moist mucous membranes. NECK: Normal range of motion, supple LUNGS: Breath sounds equal, clear to auscultation bilaterally. No wheezes, no rhonchi, no rales. HEART: Regular rate and rhythm, normal S1 and S2 without murmur, rub or gallop. ABDOMEN: Soft, nontender, normoactive bowel sounds. No guarding, no rebound. . No CVA tenderness EXTREMITIES: Normal range of motion, no edema. No clubbing or cyanosis. No cords, erythema, or tenderness. MSK: reproducible tendernesson L chostochondral region, and L paraspinal thoracic region. no midlilne tenderness NEUROLOGICAL: No facial assymetry, Normal speech, PSYCH: Normal mood, normal affect. SKIN: Warm, Dry, normal turgor, - Medical Decision Making 06/30/18 20:13 Suspect the patient's pain is muscular in nature. Obtain EKG to screen for ACS Her chest x-rays negative for acute pathology will reassess Heart Score/ECG Review - ECG Impressions Comment:: 06/30/18 21:42 Twelve-lead EKG was performed and reviewed by me. There is normal sinus rhythm with a normal rate. rate of 78 The axis is normal. The intervals are normal. There is normal R wave progression There are no ST or T wave abnormalities. Impression: Normal twelve-lead EKG
[2018-06-30] MEDS ORDERED: ACETAMINOPHEN 325 MG TABLET (FP) PO ONE (20:12)
[2018-06-30] MEDS ORDERED: traMADol HCL 50 MG TABLET PO ONE (20:45)
[2018-06-30] MEDS ORDERED: traMADol HCL 50 MG TABLET ONE (20:47)
[2018-06-30] MEDS ORDERED: ACETAMINOPHEN 325 MG TABLET (FP) ONE (20:47)
[2018-06-30 20:52] LABS: EOS % 0.1 % (0-4.5); HEMATOCRIT 41.9 % (32.4-45.2); HEMOGLOBIN 14.2 GM/dL (10.7-15.3); LYMPH % 43.5 % (8-40); MCH 27.8 pg (25.7-33.7); MEAN CELL VOLUME 81.7 fl (80-96); MEAN PLT VOLUME 8.7 fl (7.5-11.1); MONO % 10.8 % (3.8-10.2); NEUT % 44.6 % (42.8-82.8); PLATELET COUNT 276 K/MM3 (134-434); RBC 5.12 M/mm3 (3.60-5.2); RDW 14.2 % (11.6-15.6); WHITE BLOOD COUNT 9.5 K/mm3 (4.0-10.0)
[2018-06-30 21:08] VITALS: BP 103/77; PULSE 84
[2018-06-30 21:21] LABS: ALBUMIN 3.8 g/dl (3.4-5.0); ALK PHOS 56 U/L (45-117); AMYLASE 84 U/L (25-115); ANION GAP 9 MMOL/L (8-16); BILIRUBIN,TOTAL 0.2 mg/dL (0.2-1); BLOOD UREA NITROGEN 19 mg/dL (7-18); CALCIUM 9.5 mg/dL (8.5-10.1); CHLORIDE 103 mmol/L (98-107); CO2 28 mmol/L (21-32); GLUCOSE,RANDOM 113 mg/dL (74-106); LIPASE 219 U/L (73-393); POTASSIUM 4.5 mmol/L (3.5-5.1); SGOT/AST 22 U/L (15-37); SGPT/ALT 27 U/L (13-61); SODIUM 140 mmol/L (136-145); TOT PROT 7.5 g/dl (6.4-8.2)
--- NOTE | 2018-07-02 17:24 | EKG ---
Test Reason : Blood Pressure : / mmHG Vent. Rate : 078 BPM Atrial Rate : 078 BPM P-R Int : 168 ms QRS Dur : 084 ms QT Int : 366 ms P-R-T Axes : 045 020 066 degrees QTc Int : 417 ms POOR DATA QUALITY, INTERPRETATION MAY BE ADVERSELY AFFECTED NORMAL SINUS RHYTHM NORMAL ECG WHEN COMPARED WITH ECG OF 28-MAY-2018 17:55, NO SIGNIFICANT CHANGE WAS FOUND Confirmed by MD JUSTIN, GUTIERREZ ([id number]) on 07/02/2018 5:24:31 PM Referred By: Confirmed By:GUTIERREZ ANDERSON MD
== END 2018-06-30 22:17 | disposition home or self-care (01) ==
LOC: JER 17:55
DX: J44.9 Chronic obstructive pulmonary disease, unspecified (principal); Z87.01 Personal history of pneumonia (recurrent); I10 Essential (primary) hypertension; E11.9 Type 2 diabetes mellitus without complications; E78.5 Hyperlipidemia, unspecified; E03.9 Hypothyroidism, unspecified
CPT/HCPCS: 36415; 71046-TC-FY; 80053; 82150; 82550; 83690; 84484; 85025; 93005; 93010; 99284-25

== ENCOUNTER 2018-09-23 08:58 | Day surgery (SDC) | payer OTHER ==
[2018-09-22 12:41] VITALS: BMI 25.2
[2018-09-23] MEDS ORDERED: LIDOCAINE HCL 1%, 10 MG/ML (20ML VIAL) ONE ×2 (10:54→12:04)
[2018-09-23] MEDS ORDERED: MIDAZOLAM HCL 2 MG/2 ML SINGLE DOSE VIAL ONE ×3 (11:05→11:34)
[2018-09-23] MEDS ORDERED: ceFAZolin SODIUM 1 GM VIAL ONE (11:20)
[2018-09-23] MEDS ORDERED: ONDANSETRON 4 MG/2 ML VIAL ONE (11:29)
[2018-09-23] MEDS ORDERED: DEXAMETHASONE SOD PHOSPHATE 4 MG/1 ML VIAL ONE (11:29)
[2018-09-23] MEDS ORDERED: PROPOFOL 20 ML ONE ×2 (11:33→12:08)
[2018-09-23] MEDS ORDERED: ceFAZolin SODIUM 1 GM VIAL IVPB ONE (11:35)
[2018-09-23] MEDS ORDERED: LIDOCAINE HCL 1%, 10 MG/ML (20ML VIAL) INF ONE (12:16)
[2018-09-23] MEDS ORDERED: oxyCODONE HCL 5 MG TABLET PO PRN (13:05)
[2018-09-23] MEDS ORDERED: ONDANSETRON 4 MG/2 ML VIAL IVPUSH PRN (13:05)
[2018-09-23] MEDS ORDERED: LACTATED RINGERS SOLUTION 1,000 ML IV SCH (13:15)
--- NOTE | 2018-09-23 13:29 | OP ---
Operative Note - Note: Operative Date: 09/23/18 Pre-Operative Diagnosis: malfuntioning of bladder interstim, oab Operation: removal and replavement of bladder interstim and lead Implants: bladder neuromodulator Post-Operative Diagnosis: Same as Pre-op Surgeon: Liana Honeycutt Anesthesia: Local, Fractional Specimens Removed: defective bladder interstim. and lead Estimated Blood Loss (mls): 20 Drains, Volume Out (mls): 0 Blood Volume Replaced (mls): 0 Fluid Volume Replaced (mls): 0 Operative Report Dictated: Yes
[2018-09-23 15:32] VITALS: BP 112/77; PULSE 90; TEMP 97.4
--- NOTE | 2018-09-24 07:48 | OP ---
DATE OF OPERATION: 09/23/2018 SURGEON: Liana Honeycutt MD PREOPERATIVE DIAGNOSIS: Malfunctioning neurostimulator. OPERATIVE PROCEDURE: Removal of neurostimulator battery and lead and placement of a new neurostimulator and lead. ANESTHESIA: Fractional and local. DESCRIPTION OF PROCEDURE: Under above stated anesthesia, patient was prepped and draped in the usual sterile manner. She was placed in the prone position. An incision was made over the right subgluteal area and at the previous site. This was carried through skin and subcutaneous tissues. The battery was isolated and removed. An incision was made in the low sacral region at the site of sacral nerve 2, and using blunt dissection, the lead was isolated and brought out complete. No active bleeding was noted. Sacral root was then recanalized and a new lead was placed. The lead was then subcutaneously tunneled to the existent pocket. A brand new neurostimulator was connected to the lead and placed in the pocket. The pocket was irrigated with normal saline. The wound was closed with 3-0 Vicryl suture ligatures and skin efrain. The patient tolerated the procedure well. She returned to the recovery room in good condition. Symone [id number]
--- NOTE | 2018-09-27 10:17 | PATH ---
Surgical Pathology Report Patient Name: JULIAN CHAMPION Med. Rec. #: [id number] /Age/Gender: 1955 (Age: 63) / F Account: [id number] Location: [facility] Taken: 09/23/2018 Received: 09/26/2018 Reported: 09/27/2018 Physicians: Liana Honeycutt M.D. Specimen(s) Received OLD INTERSTIM IMPLANT Clinical History Urge urinary incontinence Final Diagnosis INTERSTIM IMPLANT, REMOVAL: RENDERER (INTERSTIM IMPLANT). MACROSCOPIC DIAGNOSIS. Electronically Signed Diana Newton M.D. Gross Description Received fresh labeled "interstim implant," is a 5.0 x 4.3 x 0.7 cm prather metallic device. The specimen has the following inscription: "Medtronic InterStim II SN: [id number]." Also received within the same container is a 25.5 cm in length prather metallic portion of wire. No soft tissue is present. No sections are submitted, gross only. /09/26/2018 saudi/09/26/2018
== END 2018-09-23 15:30 | disposition home or self-care (01) ==
LOC: JASU-SURG 08:58
PROVIDERS: ATTEND Urology
PROC: 0JH70BZ Insertion of Single Array Stimulator Generator into Back Subcutaneous Tissue and Fascia, Open Approach (ICD-10-PCS; 2018-09-23)
PROC: 01PY0MZ Removal of Neurostimulator Lead from Peripheral Nerve, Open Approach (ICD-10-PCS; 2018-09-23)
PROC: 01HY0MZ Insertion of Neurostimulator Lead into Peripheral Nerve, Open Approach (ICD-10-PCS; 2018-09-23)
PROC: 0JPT0MZ Removal of Stimulator Generator from Trunk Subcutaneous Tissue and Fascia, Open Approach (ICD-10-PCS; principal; 2018-09-23 10:30)
DX: T85.890A Other specified complication of nervous system prosthetic devices, implants and grafts, initial encounter (principal); N39.41 Urge incontinence; I10 Essential (primary) hypertension; E11.9 Type 2 diabetes mellitus without complications
CPT/HCPCS: 64581; 64590; C1778; L8679; 76000-TC-FY; 82962; 88300-TC; 94760

== ENCOUNTER 2018-11-22 10:57 | Day surgery (SDC) | payer OTHER ==
[2018-11-21 13:47] VITALS: BMI 25.9
[2018-11-22] MEDS ORDERED: LIDOCAINE HCL 1%, 10 MG/ML (20ML VIAL) ONE (13:43)
[2018-11-22] MEDS ORDERED: MIDAZOLAM HCL 2 MG/2 ML SINGLE DOSE VIAL ONE ×3 (13:55→15:13)
[2018-11-22] MEDS ORDERED: PROPOFOL 20 ML ONE (14:02)
[2018-11-22] MEDS ORDERED: ceFAZolin SODIUM 1 GM VIAL IVPB ONE (14:04)
[2018-11-22] MEDS ORDERED: BACITRACIN 50,000 UNITS VIAL TP ONE (14:14)
[2018-11-22] MEDS ORDERED: LIDOCAINE HCL 1%, 10 MG/ML (20ML VIAL) INF ONE (14:14)
[2018-11-22] MEDS ORDERED: fentaNYL CITRATE 250 MCG/5 ML VIAL IVPUSH ONE (15:40)
[2018-11-22] MEDS ORDERED: KETOROLAC TROMETHAMINE 30 MG/1 ML VIAL IVPUSH ONE ×2 (15:55→16:15)
[2018-11-22] MEDS ORDERED: ACETAMINOPHEN INJECTION 100 ML IVPB ONE (16:06)
[2018-11-22] MEDS ORDERED: ACETAMINOPHEN 1000 MG/100 ML VIAL (NON FORMULARY) IVPB ONE ×2 (16:10→16:15)
[2018-11-22 17:37] VITALS: BP 111/72; PULSE 82; TEMP 98
--- NOTE | 2018-11-22 19:28 | HP ---
DATE OF ADMISSION: 11/22/2018 Here for same-day surgery. The patient is a 63-year-old female with history of overactive bladder for 2 years. She has had a sacral nerve stimulator implanted in September of this year. She states that since the surgery, she has been having increase in frequency. She wakes up 5 times at night, complains of urgency as well as urgency incontinence. She describes the symptoms as more severe. She denies any other symptoms. She does have history of high blood pressure and type 2 diabetes. She denies ethanolism or tobacco or allergies. The only surgery was the sacral nerve stimulator in September 2018. She is presently on Hyzaar, Lipitor, Symbicort, and Invokana. She also takes Ozempic 0.5 mg subcutaneous weekly. PHYSICAL EXAMINATION: Vital Signs: Presently, her vital signs are stable. Chest: Clear. Heart: Regular. Abdomen: Soft. Back: No CVA tenderness. Pelvic: Reveals some atrophic vaginitis with a grade 1 cystocele. Morgan test negative. No pelvic masses were palpated. Extremities: Showed full range of motion with no cyanosis, clubbing, or edema. IMPRESSION AT PRESENT: Neurogenic bladder with failed sacral neurostimulation. We will explore the implantation and examine the leads for functionality, possible replacement of battery. SYLVIA BUENO M.D. [id number]
--- NOTE | 2018-11-24 09:02 | PATH ---
Surgical Pathology Report Patient Name: JULIAN CHAMPION Med. Rec. #: [id number] /Age/Gender: 1955 (Age: 63) / F Account: [id number] Location: [facility] SURGICAL Taken: 11/22/2018 Received: 11/23/2018 Reported: 11/24/2018 Physicians: Liana Honeycutt M.D. Specimen(s) Received OLD INTERSTIM GENERATOR AND LEAD Clinical History Malfunctioning interstim generator and lead Final Diagnosis CHANGE OF ADDRESS CLERK, REMOVAL: CHANGE OF ADDRESS CLERK CONSISTENT WITH INTERSTIM GENERATOR AND LEAD (GROSS ONLY). Electronically Signed Danny Carrera M.D. Gross Description Received fresh labeled "old InterStim/lead," is a 5.0 x 4.3 x 0.7 cm prather metallic device, consistent with a battery. The specimen has the following inscription: "Medtronic InterStim II SN: [id number]." Also received within the same container is a 23 cm in length prather metallic portion of wire. No soft tissue is present. No sections are submitted, gross only. /11/23/2018 saudi/11/23/2018
--- NOTE | 2018-12-05 09:09 | OP ---
DATE OF OPERATION: 11/22/2018 PREOPERATIVE DIAGNOSIS: Malfunctioning InterStim implant. OPERATIVE PROCEDURE: Removal of malfunctioning InterStim implant battery and lead and reinsertion of new battery and lead. ANESTHESIA: Neuroleptic and local. Under the above-stated anesthesia, patient was prepped and draped in the usual sterile manner. She was placed in the prone position. The InterStim battery was located at the right supragluteal region. The incision was made over the old scar using blunt and sharp dissection. The battery was isolated and removed en bloc. The lead was then isolated at the level of the sacral root and removed atraumatically. No active bleeding was noted. After obtaining the right sacral root, a new lead was placed and tunneled to the left side. The placement of the lead revealed good flicking of the toe as well as a maneuver. An incision was made in the left supragluteal area. This was carried down through skin and subcutaneous tissue. A pocket to accommodate the battery was made. The InterStim battery was connected to the lead and placed snugly in the new incision. The wound was irrigated with antibiotic solution and closed with 2 layers of 3-0 Vicryl suture ligature and efrain. Pressure dressing was applied. Patient tolerated the procedure well. She returned to the recovery room in good condition. Symone [id number]
--- NOTE | 2018-12-06 08:26 | OP ---
DATE OF OPERATION: 11/22/2018 Patient is a 63-year-old female with overactive bladder. She is status post placement of an InterStim neuromodulator. PREOPERATIVE DIAGNOSIS: Malfunctioning InterStim implant. POSTOPERATIVE DIAGNOSIS: Malfunctioning InterStim implant. OPERATIVE PROCEDURE: Removal of InterStim battery as well as lead and placement of new lead and new battery. ANESTHESIA: Neuroleptic and local. Patient is prepped in the usual sterile manner and placed in the prone position. The first InterStim was located in the right supragluteal area. An incision was made. This was carried down through skin and subcutaneous tissue using both blunt and sharp dissection. The battery was isolated and brought out the wound. The lead was then cut at the entrance to the battery. A small incision was made over sacral root 2, and the lead was isolated and brought out via the incision completely. No active bleeding was noted. After proper measurements of placement of a second lead in sacral nerve 2, an InterStim pouch was made over the left supragluteal area. This was approximately 6 cm in transverse length. Using both blunt and sharp dissection, the pocket was deepened to the level of the gluteus katharina. The battery was then placed in. The lead was attached to the battery. There appeared to be toe flicking as well as a sign indicative of proper neuromodulation. The wound was irrigated with antibiotic solution, and then, it was closed with 2 layers. The first layer was 3-0 Vicryl suture ligature. The skin was closed with efrain. Pressure dressing was applied. The patient tolerated the procedure well. She returned to the recovery room in good condition. Symone [id number]
== END 2018-11-22 17:40 | disposition home or self-care (01) ==
LOC: JASU-SURG 10:57
PROVIDERS: ATTEND Urology
PROC: 0JH70MZ Insertion of Stimulator Generator into Back Subcutaneous Tissue and Fascia, Open Approach (ICD-10-PCS; 2018-11-22)
PROC: 01PY0MZ Removal of Neurostimulator Lead from Peripheral Nerve, Open Approach (ICD-10-PCS; 2018-11-22)
PROC: 01HY0MZ Insertion of Neurostimulator Lead into Peripheral Nerve, Open Approach (ICD-10-PCS; 2018-11-22)
PROC: 0JPT0MZ Removal of Stimulator Generator from Trunk Subcutaneous Tissue and Fascia, Open Approach (ICD-10-PCS; principal; 2018-11-22 12:30)
DX: T85.118A Breakdown (mechanical) of other implanted electronic stimulator of nervous system, initial encounter (principal); N32.81 Overactive bladder; N39.41 Urge incontinence; R35.0 Frequency of micturition; I10 Essential (primary) hypertension; E11.9 Type 2 diabetes mellitus without complications
CPT/HCPCS: 64581; 64590; C1767; C1778; 76000-TC-FY; 82962; 88300-TC; 94760; J0131

== ENCOUNTER 2019-01-18 01:09 | Observation (INO) | payer OTHER ==
[2019-01-18] MEDS ORDERED: SODIUM CHLORIDE 0.9% 1000 ML INFUS.BAG IV ONE (01:40)
[2019-01-18] MEDS ORDERED: METOCLOPRAMIDE HCL INJECTION 10 MG/2 ML VIAL IVPB ONE (01:40)
[2019-01-18] MEDS ORDERED: ACETAMINOPHEN 1000 MG/100 ML VIAL (NON FORMULARY) IVPB ONE (01:40)
[2019-01-18] MEDS ORDERED: ACETAMINOPHEN INJECTION 100 ML IVPB ONE (01:50)
[2019-01-18] MEDS ORDERED: METOCLOPRAMIDE HCL INJECTION 10 MG/2 ML VIAL ONE (01:50)
[2019-01-18 02:17] LABS: BASO % 0.3 % (0-2.0); EOS % 0.3 % (0-4.5); HEMATOCRIT 39.5 % (32.4-45.2); LYMPH % 32.7 % (8-40); MCH 28.1 pg (25.7-33.7); MEAN CELL VOLUME 85.1 fl (80-96); MEAN PLT VOLUME 8.6 fl (7.5-11.1); MONO % 10.6 % (3.8-10.2); NEUT % 56.1 % (42.8-82.8); PLATELET COUNT 188 K/MM3 (134-434); RBC 4.64 M/mm3 (3.60-5.2); WHITE BLOOD COUNT 10.6 K/mm3 (4.0-10.0)
[2019-01-18 02:29] LABS: INR 1.02 (0.83-1.09)
[2019-01-18 02:47] LABS: ALBUMIN 3.5 g/dl (3.4-5.0); ALK PHOS 44 U/L (45-117); ANION GAP 5 MMOL/L (8-16); BILIRUBIN,TOTAL 0.2 mg/dL (0.2-1); BLOOD UREA NITROGEN 17.5 mg/dL (7-18); CALCIUM 8.4 mg/dL (8.5-10.1); CHLORIDE 108 mmol/L (98-107); CO2 27 mmol/L (21-32); CREATININE 0.9 mg/dL (0.55-1.3); GLUCOSE,RANDOM 83 mg/dL (74-106); MAGNESIUM 1.9 mg/dL (1.8-2.4); SGOT/AST 26 U/L (15-37); SGPT/ALT 20 U/L (13-61); SODIUM 140 mmol/L (136-145); TOT PROT 6.3 g/dl (6.4-8.2)
[2019-01-18 02:50] LABS: POTASSIUM 3.7 mmol/L (3.5-5.1)
--- NOTE | 2019-01-18 03:22 | PDOC ---
History of Present Illness - General Chief Complaint: Syncope/Near Syncope Stated Complaint: SYNCOPE Time Seen by Provider: 01/18/19 01:28 History Source: Patient, EMS, Family (Daughter at bedside) Exam Limitations: No Limitations - History of Present Illness Initial Comments: 01/18/19 03:20 63F with a PMH of HTN, bipolar disorder, HLD, DM, migraines, depression who presents to the ER after having 2 syncopal episodes. The patient states that she was in her normal state of health and went to use the restroom. After having a bowel movement, she passed out. Her daughter heard a thump and went and saw her mom on the ground. She helped her up and on the way from the bathroom to the kitchen, the patient syncopized again. The patient denies remembering any of these episodes but does not recall having CP, SOB, lightheadedness, nausea, vomiting, diaphoresis, palpitations, fever, chills, numbness, tingling, or focal weakness before, during or after the syncopal episode. She admits to generalized weakness and a headache. Past History - Past Medical History Allergies/Adverse Reactions: Allergies Allergy/AdvReac Type Severity Reaction Status Date / Time No Known Allergies Allergy Verified 11/22/18 11:34 Home Medications: Ambulatory Orders Atorvastatin Ca [Lipitor] 20 mg PO HS #0 tab 04/28/17 Canagliflozin [Invokana] 300 mg PO DAILY #0 tab 04/28/17 Omeprazole 40 mg PO DAILY #0 cap 04/28/17 Venlafaxine HCl ER [Effexor Xr -] 150 mg PO DAILY #0 cap 04/28/17 traZODone HCL [Trazodone HCl] 100 mg PO HS 05/23/18 Budesonide/Formeterol Fumarate [SYMBICORT 160/4.5mcg -] 1 inh PO DAILY 05/29/18 Linaclotide [Linzess] 72 mcg PO DAILY 05/29/18 Tramadol HCl/Acetaminophen [Ultracet Tablet] 1 each PO BID PRN 05/29/18 Gabapentin [Neurontin -] 600 mg PO TID #90 capsule 05/31/18 Losartan Potassium [Cozaar -] 100 mg PO DAILY tablet 05/31/18 Lamotrigine [LaMICtal -] 100 mg PO DAILY 06/30/18 Loratadine [Claritin -] 10 mg PO PRN 09/22/18 Semaglutide [Ozempic] 0.25 mg SQ WEEKLY 11/21/18 Anemia: No Asthma: Yes (PNEUMONIA 8 MONTHS AGO) Cancer: No Cardiac Disorders: No CVA: No COPD: Yes CHF: No Dementia: No Diabetes: Yes (NIDM) GI Disorders: No Disorders: No HTN: Yes Hypercholesterolemia: Yes Liver Disease: No Seizures: No Thyroid Disease: Yes (HYPO.) - Surgical History Appendectomy: Yes Cholecystectomy: Yes Orthopedic Surgery: Yes (rotator cuff cyst removal) - Immunization History Td Vaccination: No TDAP Vaccination: No Immunization Up to Date: No - Suicide/Smoking/Psychosocial Hx Smoking History: Never smoked Have you smoked in the past 12 months: No Number of Cigarettes Smoked Daily: 1 If you are a former smoker, when did you quit?: 2017 Cigars Per Day: 0 Information on smoking cessation initiated: No 'Breaking Loose' booklet given: 04/26/17 Hx Alcohol Use: No Drug/Substance Use Hx: No Substance Use Type: None Hx Substance Use Treatment: No Review of Systems - Review of Systems Able to Perform ROS?: Yes Comments:: 01/18/19 03:22 GENERAL/CONSTITUTIONAL: No fever or chills. No weakness. HEAD, EYES, EARS, NOSE AND THROAT: No change in vision. No ear pain or discharge. No sore throat. CARDIOVASCULAR: No chest pain, palpitations, or lightheadedness. RESPIRATORY: No cough, wheezing, shortness of breath, or hemoptysis. GASTROINTESTINAL: + for nausea. No abdominal pain, vomiting, diarrhea, or constipation. GENITOURINARY: No dysuria, frequency, hematuria, or change in urination. MUSCULOSKELETAL: No joint or muscle swelling or pain. No neck or back pain. SKIN: No rash or lesions. NEUROLOGIC: + for syncope and headache. No numbness, tingling, focal weakness, loss of consciousness, or change in strength/sensation. Is the patient limited Swedish proficient: No *Physical Exam - Vital Signs Last Vital Signs Temp Pulse Resp BP Pulse Ox 98.8 F 85 20 107/71 99 01/18/19 01:12 01/18/19 01:12 01/18/19 01:12 01/18/19 01:12 01/18/19 01:12 - Physical Exam Comments: 01/18/19 03:23 GENERAL: Well developed, well nourished. Awake and alert. No acute distress. HEENT: Normocephalic, atraumatic. Hearing grossly normal. Moist mucous membranes. PERRLA, EOMI. No conjunctival pallor. Sclera are non-icteric. NECK: Supple. Full ROM. No JVD. CARDIOVASCULAR: Regular rate and rhythm. No murmurs, rubs, or gallops. PULMONARY: No evidence of respiratory distress. Lungs clear to auscultation bilaterally. No wheezing, rales or rhonchi. ABDOMINAL: Soft. Non-tender. Non-distended. No rebound or guarding. MUSCULOSKELETAL: Normal range of motion at all joints. No bony deformities or tenderness. EXTREMITIES: No cyanosis. No clubbing. No edema. No calf tenderness or swelling. SKIN: Warm and dry. Normal capillary refill. No rashes. No jaundice. NEUROLOGICAL: Alert, awake, appropriate. Cranial nerves 2-12 intact. No deficits to light touch and temperature in face, upper extremities and lower extremities. 5/5 strength in deltoids, biceps, triceps, quadriceps, hamstrings, and gastrocnemius. Normal speech. Gait is normal without ataxia. PSYCHIATRIC: Cooperative. Good eye contact. Appropriate mood and affect. ED Treatment Course - LABORATORY CBC & Chemistry Diagram: 01/18/19 02:00 01/18/19 02:00 - ADDITIONAL ORDERS Additional order review: Laboratory Results 01/18/19 01/18/19 02:00 02:00 PT with INR 12.00 INR 1.02 Sodium 140 Potassium 3.7 Chloride 108 H Carbon Dioxide 27 Anion Gap 5 L BUN 17.5 Creatinine 0.9 Est GFR (CKD-EPI)AfAm 78.32 Est GFR (CKD-EPI)NonAf 67.57 Random Glucose 83 Calcium 8.4 L Magnesium 1.9 Total Bilirubin 0.2 AST 26 ALT 20 Alkaline Phosphatase 44 L Creatine Kinase 143 Troponin I < 0.02 Total Protein 6.3 L Albumin 3.5 01/18/19 02:00 RBC 4.64 MCV 85.1 MCHC 33.0 RDW 14.0 MPV 8.6 Neutrophils % 56.1 D Lymphocytes % 32.7 D Monocytes % 10.6 H Eosinophils % 0.3 D Basophils % 0.3 - RADIOLOGY Radiology Studies Ordered: Category Date Time Status HEAD CT WITHOUT CONTRAST [CT] Stat CT Scan 01/18/19 01:39 Ordered CHEST X-RAY PORTABLE* [RAD] Stat Radiology 01/18/19 01:40 Taken - Medications Given in the ED: ED Medications Discontinued Medications Generic Name Dose Route Start Last Admin Trade Name Marleny PRN Reason Stop Dose Admin Acetaminophen 1,000 mg 01/18/19 01:40 01/18/19 02:18 Ofirmev Injection - IVPB 01/18/19 01:41 1,000 mg ONCE ONE Administration Metoclopramide HCl 10 mg 01/18/19 01:40 01/18/19 03:00 Reglan Injection - IVPB 01/18/19 01:41 10 mg ONCE ONE Administration Sodium Chloride 1,000 ml 01/18/19 01:40 01/18/19 02:00 Normal Saline - IV 01/18/19 01:41 1,000 ml ONCE ONE Administration Medical Decision Making - Medical Decision Making 01/18/19 03:24 63F with MMP and prior syncopal episodes who presents to the ER after having 2 syncopal episodes. Pt complains of nausea and h/a. EKG unremarkable. PE unremarkable. Initial trop negative. CTH pending. Will give treatment for h/a and nausea and admit for multiple syncopal episodes. 01/18/19 04:05 CTH negative. Will microblog for syncope and hypotension. 01/18/19 05:[address] Kenney and Dr. Gaona for admission. *DC/Admit/Observation/Transfer Diagnosis at time of Disposition: Syncope and collapse, Dehydration Hypotension Qualifiers: Hypotension type: unspecified hypotension type Qualified Code(s): I95.9 - Hypotension, unspecified - Discharge Dispostion Condition at time of disposition: Guarded Decision to Admit order: Yes - Referrals - Patient Instructions - Post Discharge Activity
[2019-01-18] MEDS ORDERED: MAG HYDROX/AL HYDROX/SIMETH -MYLANTA- ORAL SUSPENSION PO ONE (05:30)
--- NOTE | 2019-01-18 05:31 | HP ---
CHIEF COMPLAINT: Syncope PCP: Dr. Robertson HISTORY OF PRESENT ILLNESS: Pt. is a 63 y.o. F w/ PMHx. of HTN, HLD, NIDDM, Migraines, Bipolar Disorder/Depression, IBS-C, Pancreatitis, MRSA infection in Maxillary Sinus (04/19), PVD, COPD/Asthma and ?Vertigo presesnt after have 2 syncopal episodes at home. Pt. states that she was in the bathroom having a bowel movement when she "passed out" and lost consciousness. She was helped up by her daughter and while walking Pt. fell down and lost consciousness again. On ED arrival Pt. was found to have BP in 80s/40s. Pt. stated that this has happened before about 2 years ago. Of note Pt. was admitted in 2017 for syncope secondary to hypotension. Pt. endorses nausea initially which is now resolved. Pt. endorses headache that started after the fall. Pt. endorses lower back pain. Pt. states that she felt a little dizzy(head was spinning) but that this is chronic and was diagnosed with vertigo in the past but does not take medication for it. Pt. states that she takes Ultracet PRN for headache and that she took Ultracet and Trazodone yesterday. Pt. denies chest pain, shortness of breath, abdominal pain, changes in appetite or missing doses of medications. ER course was notable for: (1) EKG, Head CT, IV Tylenol, Reglan, IVF, CXR (2) (3) Recent Travel: No PAST MEDICAL HISTORY: As above PAST SURGICAL HISTORY: Sacral Nerve stimulator, Appendectomy, L. Knee arthroscopy, CCY, x 3, Tonsillectomy, Breast reduction, augmentation, and then implant removal, abdominoplasty, b/l cuff repair x 2 on each side Social History: Smoking: Quit 2018, started at age 17, with variable amounts Alcohol: No, socially Drugs: Remote cocaine use Family History: Sister- [place], Aunts and Uncles-seizures and DM Allergies No Known Allergies Allergy (Verified 11/22/18 11:34) HOME MEDICATIONS: Home Medications Medication Instructions Recorded Atorvastatin Ca [Lipitor] 20 mg PO HS #0 tab 04/28/17 Canagliflozin [Invokana] 300 mg PO DAILY #0 tab 04/28/17 Omeprazole 40 mg PO DAILY #0 cap 04/28/17 Venlafaxine HCl ER [Effexor Xr -] 150 mg PO DAILY #0 cap 04/28/17 traZODone HCL [Trazodone HCl] 100 mg PO HS 05/23/18 Budesonide/Formeterol Fumarate 1 inh PO DAILY 05/29/18 [SYMBICORT 160/4.5mcg -] Linaclotide [Linzess] 72 mcg PO DAILY 05/29/18 Tramadol HCl/Acetaminophen 1 each PO BID PRN 05/29/18 [Ultracet Tablet] Gabapentin [Neurontin -] 600 mg PO TID #90 capsule 05/31/18 Losartan Potassium [Cozaar -] 100 mg PO DAILY tablet 05/31/18 Lamotrigine [LaMICtal -] 100 mg PO DAILY 06/30/18 Loratadine [Claritin -] 10 mg PO PRN 09/22/18 Semaglutide [Ozempic] 0.25 mg SQ WEEKLY 11/21/18 REVIEW OF SYSTEMS As above PHYSICAL EXAMINATION Vital Signs - 24 hr 01/18/19 01:12 Temperature 98.8 F Pulse Rate 85 Respiratory 20 Rate Blood Pressure 107/71 O2 Sat by Pulse 99 Oximetry (%) GENERAL: Awake, alert, and fully oriented, in no acute distress. HEAD: Normal with no signs of trauma. EYES: Pupils equal, round and reactive to light, extraocular movements intact, sclera anicteric, conjunctiva clear. EARS, NOSE, THROAT: Ears normal, nares patent, oropharynx clear without exudates. Moist mucous membranes. NECK: Normal range of motion, supple without lymphadenopathy, carotid bruit, JVD , or masses. LUNGS: Breath sounds equal, clear to auscultation bilaterally. No wheezes, and no crackles. No accessory muscle use. HEART: Regular rate and rhythm, normal S1 and S2 without murmur ABDOMEN: Soft, nontender, not distended, normoactive bowel sounds, no guarding, no rebound, no masses. MUSCULOSKELETAL: Normal range of motion at all joints. No bony deformities or tenderness. UPPER EXTREMITIES: 2+ radial pulses, warm, well-perfused. No cyanosis. No clubbing. No peripheral edema. LOWER EXTREMITIES: Warm, well-perfused. No calf tenderness. No peripheral edema. NEUROLOGICAL: Cranial nerves II-XII intact. No focal neurological deficits. Normal speech. Gait not assessed. Heel to Gee and Finger to nose intact. Tere- Halpike Neg. PSYCHIATRIC: Cooperative. Good eye contact. Appropriate mood and affect. SKIN: Warm, dry, normal turgor Laboratory Results - last 24 hr 01/18/19 01/18/19 01/18/19 02:00 02:00 02:00 WBC 10.6 H RBC 4.64 Hgb 13.0 Hct 39.5 MCV 85.1 MCH 28.1 MCHC 33.0 RDW 14.0 Plt Count 188 D MPV 8.6 Absolute Neuts (auto) 5.9 Neutrophils % 56.1 D Lymphocytes % 32.7 D Monocytes % 10.6 H Eosinophils % 0.3 D Basophils % 0.3 Nucleated RBC % 0 PT with INR 12.00 INR 1.02 Sodium 140 Potassium 3.7 Chloride 108 H Carbon Dioxide 27 Anion Gap 5 L BUN 17.5 Creatinine 0.9 Est GFR (CKD-EPI)AfAm 78.32 Est GFR (CKD-EPI)NonAf 67.57 Random Glucose 83 Calcium 8.4 L Magnesium 1.9 Total Bilirubin 0.2 AST 26 ALT 20 Alkaline Phosphatase 44 L Creatine Kinase 143 Troponin I < 0.02 Total Protein 6.3 L Albumin 3.5 ASSESSMENT/PLAN: Pt. is a 63 y.o. F w/ PMHx. of HTN, HLD, NIDDM, Migraines, Bipolar Disorder/ Depression, IBS-C, Pancreatitis, MRSA infection in Maxillary Sinus (04/19), PVD, COPD/Asthma and ?Vertigo present after have 2 syncopal episodes at home. #Syncope likely 2/2 to vasovagal for initial fall and orthostatic hypotension for second fall f/u orthostatic VS c/w IVF No Echo on file here, f/u Echo Head CT Neg. Trop Neg. Last Stress test in 2012: Normal May have component of overmedicating with sedative and psychiatric medications, counseled Pt. on slowly standing up from seated positions Carotid Doppler(04/18) no HDS stenosis, was reccomennding f/u at that time Neurology Consult(Dr. Clifton) appreciated #Headache Head CT - c/w home medications may be 2/2 complex partial migraines f/u Neurology recommendations #NIDDM hold oral medications ISS ACHS BGM ACHS #R. Shoulder Pain f/u R. Shoulder Xray c/w tylenol for pain, may consider adding NSAID if pain persists #Leukocytosis WBC: 10.6k CXR: no acute pathology f/u UA low suspicion for infection f/u Rpt. CBC, initial elevation may be reaction to fall #HLD c/w Atorvastatin #FEN LR @ 75ml/hr for 1 bag monitor electrolytes and replete as needed Na restricted/Diabetic diet #DVT Ppx. Hep SQ TID TEDs/SCDs #Dispo Telemetry Observation Visit type - Emergency Visit Emergency Visit: Yes ED Registration Date: 01/18/19 Care time: The patient presented to the Emergency Department on the above date and was hospitalized for further evaluation of their emergent condition. - New Patient This patient is new to me today: No - Critical Care Critical Care patient: No
[2019-01-18] MEDS ORDERED: MAG HYDROX/AL HYDROX/SIMETH 30 ML UNIT-DOSE CUP ONE (06:02)
[2019-01-18] MEDS: INSULIN SLIDING SCALE (NOVOLOG) 1 VIAL SQ SCH ×4 (06:14→22:25)
--- NOTE | 2019-01-18 06:16 | PN ---
Teaching Attending Note Name of Resident: Nate Gaona ATTENDING PHYSICIAN STATEMENT I saw and evaluated the patient. I reviewed the resident's note and discussed the case with the resident. I agree with the resident's findings and plan as documented. SUBJECTIVE: Seen and examined; please refer to resident note for further historical information. Briefly, PMH HTN, HLD, NIDDM, Migraines, Bipolar Disorder, Depression, IBS, PVD, COPD/Asthma (no PFTs readilly available), Vertigo. She presents with CC syncope x2. Was having BM then had syncope while on the toilet and again when she was helped up from the floor. This did happen in the past and was associated with hypotension. Daughter called EMS and they brought her in. Found to be hypotensive but resolved. Has some R-shoulder pain and her typical headache. Did lose consciousness. No rotational motion but was dizzy. No seizure activity observed, no fnd's. She tells me that she took the ultracet yesterday with her trazodone due to MISHRA. She is hemodynamically stable and afebrile. She was given 1L fluids in the ER; CT head negative. Orthostatics not done before hydration so less reliable and still pending. Denies CP, SOB. 10 sys ROS done and negative aside from HPI. PMH, PSH (sacral nerve stim, appy, L-knee arthros, cholecyst, c-sectionx3, breast reduction/augmentation/implant removal, b/l shoulder repairs), FH, SH reviewed Home Medications Medication Instructions Recorded Atorvastatin Ca [Lipitor] 20 mg PO HS #0 tab 04/28/17 Canagliflozin [Invokana] 300 mg PO DAILY #0 tab 04/28/17 Omeprazole 40 mg PO DAILY #0 cap 04/28/17 traZODone HCL [Trazodone HCl] 100 mg PO HS 05/23/18 Budesonide/Formeterol Fumarate 1 inh PO PRN PRN 05/29/18 [SYMBICORT 160/4.5mcg -] Linaclotide [Linzess] 72 mcg PO DAILY 05/29/18 Tramadol HCl/Acetaminophen 1 each PO BID PRN 05/29/18 [Ultracet Tablet] Gabapentin [Neurontin -] 600 mg PO TID #90 capsule 05/31/18 Losartan Potassium [Cozaar -] 100 mg PO DAILY tablet 05/31/18 Lamotrigine [LaMICtal -] 100 mg PO DAILY 06/30/18 Loratadine [Claritin -] 10 mg PO PRN PRN 09/22/18 Semaglutide [Ozempic] 1 mg SQ WEEKLY 11/21/18 Calcium Carbonate [Calcium] 500 mg PO DAILY 01/18/19 Ergocalciferol [Vitamin D2] 50,000 unit PO Q7D@1000 01/18/19 Venlafaxine HCl ER [Effexor Xr -] 150 mg PO BID 01/18/19 OBJECTIVE: VS, lab, imaging reviewed NAD, AAO, resting comfortably in bed NC AT EOMI PERRLA RRR s1/2 no mgr Lungs CTAB, w/ sym exp CN2-12 wnl, no fnd. [place] halpike negative Normal mood, appropriate behavior EKG reviewed CXR reviewed CT head reviewed ASSESSMENT AND PLAN: Patient presents for syncopex2; found to have R-shoulder pain after fall. Syncope x2 -May be multifactoral; need to check orthostatics, is on multiple medications that can play a role per home med list above. Has potential components of micturational as well. -R/o cardiogenic causes with echo, telemetry. Followup orthostatics. Monitor for instability if she uses her PRN migrane medication. -Consider neurogenic component; followup neuro recs. Consider CV consult. Headache -Likely her typical migraine; consulting neuro to adjust medications as she has been having breakthroughs. Consider complex migraines, etc. -Continue home lamictal, gabapentin, ultracet PRN. R-shoulder pain -2/2 fall due to #1; checking XR. PRN analgesia. Dizziness -Longstanding; she was told that she had vertigo in the past but negative ysabel halpike in the ER. Will hold off on meclizine for now; can recheck. Hx HTN -Continue home meds; verify with pharmacy Hx HLD -Continue home statin; OP FLP Hx GERD -home PPI Full Code
[2019-01-18] MEDS ORDERED: [UNRECOGNIZED DRUG - OTHER] PO PRN (06:22)
[2019-01-18] MEDS ORDERED: TRAMADOL HCL PO PRN (06:22)
--- NOTE | 2019-01-18 06:43 | PDOC ---
Documentation entered by Lizandro London SCRIBE, acting as scribe for Jennifer Morse DO. Jennifer Morse DO: This documentation has been prepared by the Surya duran Elijah, SCRIBE, under my direction and personally reviewed by me in its entirety. I confirm that the documentation accurately reflects all work , treatment, procedures, and medical decision making performed by me. Attending Attestation - Resident Resident Name: Rudy Pulido - ED Attending Attestation I have performed the following: I have examined & evaluated the patient, The case was reviewed & discussed with the resident, I agree w/resident's findings & plan - HPI HPI: 01/18/19 02:08 The patient is a 63 year old female with a significant past medical history of HTN, HLD, DM, COPD, pancreatitis, hypothyroidism, and pyelonephritis who presents to the ED BIBA s/p syncopal episode prior to arrival. As per EMS, patient was using the restroom and syncopized. The episode was unwitnessed but the daughter heard the fall and was with her until she regained consciousness. The patient was then walked by her daughter to the kitchen where she had another syncopal episode. The patient reports some memory loss during the moments leading up to the syncopal episodes and notes that this has happened before in the past. Allergies: NKA - Physicial Exam PE: 01/18/19 02:08 Agree with Residents exam - Medical Decision Making 01/18/19 06:42 63-year-old female with multiple syncopal episodes Plan to admit to medical service due to hypotension on arrival EKG was a normal sinus rhythm with no acute ST segment elevations
--- NOTE | 2019-01-18 08:08 | EKG ---
Test Reason : Blood Pressure : / mmHG Vent. Rate : 069 BPM Atrial Rate : 069 BPM P-R Int : 190 ms QRS Dur : 090 ms QT Int : 408 ms P-R-T Axes : 068 050 054 degrees QTc Int : 437 ms NORMAL SINUS RHYTHM NORMAL ECG WHEN COMPARED WITH ECG OF 30-JUN-2018 20:46, NO SIGNIFICANT CHANGE WAS FOUND Confirmed by GLENNA GARCIA MD ([id number]) on 01/18/2019 8:07:57 AM Referred By: Confirmed By:GLENNA GARCIA MD
--- NOTE | 2019-01-18 09:30 | PN ---
Progress Note, Physician Chief Complaint: Syncope Fall History of Present Illness: NAD getting echo BP running low - Current Medication List Current Medications: Active Medications Acetaminophen (Tylenol -) 650 mg PO Q6H PRN PRN Reason: Fever Atorvastatin Calcium (Lipitor -) 20 mg PO HS [facility] Budesonide/Formoterol Fumarate (Symbicort 160/4.5mcg -) 1 puff IH BID [facility] Gabapentin (Neurontin -) 600 mg PO TID [facility] Insulin Aspart (Novolog Vial Sliding Scale -) 1 vial SQ ACHS [facility]; Protocol Last Admin: 01/18/19 06:14 Dose: Not Given Lamotrigine (Lamictal -) 100 mg PO DAILY [facility] Losartan Potassium (Cozaar -) 50 mg PO DAILY [facility] Non-Formulary Medication (Linaclotide [Linzess]) 72 mcg PO DAILY [facility] Pantoprazole Sodium (Protonix -) 40 mg PO DAILY [facility] Sitagliptin Phosphate (Januvia -) 50 mg PO DAILY@0700 [facility] Tramadol HCl (Ultram -) 50 mg PO Q6H PRN PRN Reason: PAIN 4-6 Trazodone HCl (Desyrel -) 100 mg PO HS [facility] Venlafaxine HCl (Effexor Xr -) 150 mg PO BID [facility] - Objective Vital Signs: Vital Signs Temperature 98.1 F 01/18/19 06:39 Pulse Rate 71 01/18/19 06:39 Respiratory Rate 15 01/18/19 06:39 Blood Pressure 96/60 01/18/19 06:39 O2 Sat by Pulse Oximetry (%) 98 01/18/19 06:39 Constitutional: Yes: Well Nourished, No Distress, Calm Cardiovascular: Yes: Regular Rate and Rhythm Respiratory: Yes: Regular Gastrointestinal: Yes: WNL Genitourinary: Yes: WNL Musculoskeletal: Yes: WNL Extremities: Yes: WNL Edema: No Peripheral Pulses WNL: Yes Neurological: Yes: Alert, Oriented Psychiatric: Yes: Alert, Oriented Labs: CBC, BMP 01/18/19 02:00 01/18/19 02:00 INR, PTT INR 1.02 (0.83-1.09) 01/18/19 02:00 Problem List - Problems (1) Dehydration Assessment/Plan: -Continue IVF Code(s): E86.0 - DEHYDRATION (2) Hypotension Assessment/Plan: -D/C losartan -Cardiology consult -Echo -Tele monitoring -IVF -check orthostatics Code(s): I95.9 - HYPOTENSION, UNSPECIFIED Qualifiers: Hypotension type: unspecified hypotension type Qualified Code(s): I95.9 - Hypotension, unspecified (3) Syncope and collapse Code(s): R55 - SYNCOPE AND COLLAPSE (4) Diabetes Assessment/Plan: -On non formulary meds -Start Januvia 50 mg po daily -BGM AC HS -Low sodium diabetic diet -Insulin sliding scale -check A1C Code(s): E11.9 - TYPE 2 DIABETES MELLITUS WITHOUT COMPLICATIONS (5) HLD (hyperlipidemia) Code(s): E78.5 - HYPERLIPIDEMIA, UNSPECIFIED Qualifiers: Hyperlipidemia type: unspecified Qualified Code(s): E78.5 - Hyperlipidemia , unspecified Assessment/Plan see problem list
[2019-01-18] MEDS: VENLAFAXINE HCL 75 MG E.R. CAPSULES (FP) PO SCH ×2 (09:50→22:26)
[2019-01-18] MEDS: lamoTRIgine 100 MG TABLET (FP) PO SCH (09:51)
[2019-01-18] MEDS: PANTOPRAZOLE 40 MG TABLET (FP) PO SCH (09:51)
[2019-01-18] MEDS: BUDESONIDE/FORMETEROL FUMARATE 160/4.5 mcg INHALER IH SCH ×2 (09:52→21:54)
[2019-01-18] MEDS ORDERED: LOSARTAN POTASSIUM 50 MG TABLET (FP) PO SCH ×2 (10:00)
[2019-01-18] MEDS ORDERED: PATIENT'S OWN MEDICATION (NON-FORMULARY) (Linaclotide [Linzess] 72 MCG) PO SCH (10:00)
[2019-01-18] MEDS: GABAPENTIN 300 MG CAPSULE (FP) PO SCH ×2 (14:32→21:53)
--- NOTE | 2019-01-18 15:08 | ECHO ---
Name: JULIAN CHAMPION Exam:Adult Echocardiogram Study Date: 01/18/2019 11:19 AM Age: 63 yrs Reason For Study: SYNCOPE Height: 64 in Weight: 151 lb BSA: 1.7 m2 MMode/2D Measurements & Calculations IVSd: 0.69 cm Ao root diam: 2.3 cm LVIDd: 4.5 cm LA dimension: 3.5 cm LVIDs: 2.8 cm LVPWd: 0.67 cm EDV(Teich): 90.2 ml LVOT diam: 2.0 cm ESV(Teich): 30.5 ml Doppler Measurements & Calculations MV E max junaid: 85.5 cm/sec Ao V2 max: 177.2 cm/sec MV A max junaid: 110.2 cm/sec Ao max P.6 mmHg MV E/A: 0.78 Ao V2 mean: 128.1 cm/sec MV dec time: 0.28 sec Ao mean P.4 mmHg Ao V2 VTI: 37.9 cm BETH(I,D): 2.1 cm2 BETH(V,D): 2.0 cm2 LV V1 max P.0 mmHg SV(LVOT): 79.0 ml LV V1 mean P.7 mmHg LV V1 max: 111.3 cm/sec LV V1 mean: 77.8 cm/sec LV V1 VTI: 24.4 cm TR max junaid: 140.7 cm/sec Med Peak E' Junaid: 6.1 cm/sec TR max P.9 mmHg Med E/e': 13.9 Lat Peak E' Junaid: 7.1 cm/sec Lat E/e': 12.0 Procedure A two-dimensional transthoracic echocardiogram with color flow and Doppler was performed. Left Ventricle The left ventricular size, thickness and function are normal. The left ventricular ejection fraction is normal. E/A reversal consistent with but not diagnostic of poor LV compliance. The left ventricular w all motion is normal. Right Ventricle The right ventricle is normal in size and function. Atria Normal left and right atrial size and function. Mitral Valve There is mild mitral valve thickening. There is no mitral valve stenosis. There is trace to mild mitr al regurgitation. Tricuspid Valve There is mild tricuspid valve thickening. There is no tricuspid stenosis. There is trace tricuspid regurgitation. Right ventricular systolic pressure is normal. Aortic Valve The aortic valve is normal in structure and function. No hemodynamically significant valvular aortic stenosis. No aortic regurgitation is present. Pulmonic Valve The pulmonic valve is not well visualized. Great Vessels The aortic root is not well visualized. Pericardium/Pleura There is no pericardial effusion. Interpretation Summary The left ventricular size, thickness and function are normal The left ventricular ejection fraction is normal. The left ventricular wall motion is normal. There is trace tricuspid regurgitation. Right ventricular systolic pressure is normal. E/A reversal consistent with but not diagnostic of poor LV compliance MD Saul Melo 01/18/2019 03:07 PM
[2019-01-18] MEDS: traMADol HCL 50 MG TABLET PO PRN (15:44)
[2019-01-18 16:06] VITALS: BMI 26.6
[2019-01-18 18:29] LABS: URINE APPEARANCE CLEAR; URINE BILIRUBIN NEGATIVE (NEGATIVE); URINE COLOR YELLOW; URINE GLUCOSE (UA) 3+ (NEGATIVE); URINE KETONE NEGATIVE (NEGATIVE); URINE LEUK ESTERASE NEGATIVE (NEGATIVE); URINE NITRITE NEGATIVE (NEGATIVE); URINE PROTEIN NEGATIVE (NEGATIVE); URINE UROBILINOGEN 0.2 mg/dL (0.2-1.0)
[2019-01-18] MEDS: SODIUM CHLORIDE 1,000 ML IV SCH (18:59)
[2019-01-18] MEDS: ACETAMINOPHEN 325 MG TABLET (FP) PO PRN (20:32)
[2019-01-18] MEDS ORDERED: PT OWN MED DRAWER 7, Y5N ONE (21:36)
[2019-01-18] MEDS: ATORVASTATIN CA 20 MG TABLET (FP) PO SCH (21:53)
[2019-01-18] MEDS: traZODone HCL 100 MG TABLET (FP) PO SCH (21:53)
[2019-01-19] MEDS: GABAPENTIN 300 MG CAPSULE (FP) PO SCH ×3 (05:49→21:51)
[2019-01-19 06:12] LABS: BASO % 0.2 % (0-2.0); EOS % 0.4 % (0-4.5); HEMATOCRIT 39.3 % (32.4-45.2); HEMOGLOBIN 12.9 GM/dL (10.7-15.3); LYMPH % 46.3 % (8-40); MCH 27.7 pg (25.7-33.7); MCHC 32.9 g/dl (32.0-36.0); MEAN CELL VOLUME 84.2 fl (80-96); MEAN PLT VOLUME 8.8 fl (7.5-11.1); NEUT % 43.1 % (42.8-82.8); PLATELET COUNT 205 K/MM3 (134-434); RBC 4.66 M/mm3 (3.60-5.2); RDW 13.7 % (11.6-15.6); WHITE BLOOD COUNT 6.2 K/mm3 (4.0-10.0)
[2019-01-19 06:43] LABS: ALBUMIN 3.2 g/dl (3.4-5.0); BILIRUBIN,TOTAL 0.2 mg/dL (0.2-1); BLOOD UREA NITROGEN 15.5 mg/dL (7-18); CALCIUM 8.7 mg/dL (8.5-10.1); CREATININE 0.8 mg/dL (0.55-1.3); TOT PROT 6.1 g/dl (6.4-8.2)
[2019-01-19] MEDS: INSULIN SLIDING SCALE (NOVOLOG) 1 VIAL SQ SCH ×4 (07:06→21:52)
[2019-01-19] MEDS: sitaGLIPtin PHOSPHATE 50 MG TABLET PO SCH (07:06)
[2019-01-19] MEDS ORDERED: PT OWN MED DRAWER 7, Y5N ONE ×2 (09:26→21:30)
[2019-01-19] MEDS: ENOXAPARIN NA (PORCINE) 40 MG/0.4 ML DISP.SYRIN SQ SCH (09:36)
[2019-01-19] MEDS: lamoTRIgine 100 MG TABLET (FP) PO SCH (09:37)
[2019-01-19] MEDS: PANTOPRAZOLE 40 MG TABLET (FP) PO SCH (09:37)
[2019-01-19] MEDS: ACETAMINOPHEN 325 MG TABLET (FP) PO PRN ×2 (09:38→16:06)
[2019-01-19] MEDS: BUDESONIDE/FORMETEROL FUMARATE 160/4.5 mcg INHALER IH SCH ×2 (09:40→21:58)
[2019-01-19] MEDS: VENLAFAXINE HCL 75 MG E.R. CAPSULES (FP) PO SCH ×2 (10:59→21:51)
[2019-01-19] MEDS: traMADol HCL 50 MG TABLET PO PRN ×2 (12:51→20:30)
--- NOTE | 2019-01-19 13:47 | PN ---
Progress Note, Physician Chief Complaint: Fall Syncope History of Present Illness: Previous notes and events reviewed awake and alert NAD complain of constipation L shoulder pain--xray reviewed - Current Medication List Current Medications: Active Medications Acetaminophen (Tylenol -) 650 mg PO Q6H PRN PRN Reason: Fever Last Admin: 01/19/19 09:38 Dose: 650 mg Atorvastatin Calcium (Lipitor -) 20 mg PO [facility] Last Admin: 01/18/19 21:53 Dose: 20 mg Budesonide/Formoterol Fumarate (Symbicort 160/4.5mcg -) 1 puff IH BID [facility] Last Admin: 01/19/19 09:40 Dose: Not Given Enoxaparin Sodium (Lovenox -) 40 mg SQ DAILY [facility] Last Admin: 01/19/19 09:36 Dose: 40 mg Gabapentin (Neurontin -) 600 mg PO TID [facility] Last Admin: 01/19/19 05:49 Dose: 600 mg Sodium Chloride (Normal Saline -) 1,000 mls @ 50 mls/hr IV [facility] Stop: 01/19/19 17:45 Last Admin: 01/18/19 18:59 Dose: 50 mls/hr Insulin Aspart (Novolog Vial Sliding Scale -) 1 vial SQ [facility]; Protocol Last Admin: 01/19/19 12:05 Dose: Not Given Lamotrigine (Lamictal -) 100 mg PO DAILY [facility] Last Admin: 01/19/19 09:37 Dose: 100 mg Non-Formulary Medication (Linaclotide [Linzess]) 72 mcg PO DAILY [facility] Pantoprazole Sodium (Protonix -) 40 mg PO DAILY [facility] Last Admin: 01/19/19 09:37 Dose: 40 mg Sitagliptin Phosphate (Januvia -) 50 mg PO DAILY@0700 [facility] Last Admin: 01/19/19 07:06 Dose: 50 mg Tramadol HCl (Ultram -) 50 mg PO Q6H PRN PRN Reason: PAIN 4-6 Last Admin: 01/19/19 12:51 Dose: 50 mg Trazodone HCl (Desyrel -) 100 mg PO [facility] Last Admin: 01/18/19 21:53 Dose: 100 mg Venlafaxine HCl (Effexor Xr -) 150 mg PO BID [facility] Last Admin: 01/19/19 10:59 Dose: 150 mg - Objective Vital Signs: Vital Signs Temperature 97.6 F 01/19/19 10:01 Pulse Rate 88 01/19/19 10:01 Respiratory Rate 18 01/19/19 10:01 Blood Pressure 111/65 01/19/19 10:01 O2 Sat by Pulse Oximetry (%) 95 01/19/19 10:03 Constitutional: Yes: No Distress, Calm Eyes: Yes: Conjunctiva Clear HENT: Yes: Atraumatic Cardiovascular: Yes: Regular Rate and Rhythm Respiratory: Yes: Regular, CTA Bilaterally Gastrointestinal: Yes: Normal Bowel Sounds, Soft Musculoskeletal: Yes: Muscle Weakness Extremities: Yes: WNL Edema: No Neurological: Yes: Alert, Oriented Psychiatric: Yes: Alert, Oriented Labs: CBC, BMP 01/19/19 05:00 01/19/19 05:00 INR, PTT INR 1.02 (0.83-1.09) 01/18/19 02:00 Problem List - Problems (1) Dehydration Assessment/Plan: -IV hydration Code(s): E86.0 - DEHYDRATION (2) Hypotension Assessment/Plan: -Echo LVEF is normal -BP meds on hold -monitor BP -IVF -cardiology consult -tele monitoring Code(s): I95.9 - HYPOTENSION, UNSPECIFIED Qualifiers: Hypotension type: unspecified hypotension type Qualified Code(s): I95.9 - Hypotension, unspecified (3) Syncope and collapse Assessment/Plan: -fall precaution -PT -Head CT scan reviewed Code(s): R55 - SYNCOPE AND COLLAPSE (4) COPD (chronic obstructive pulmonary disease) Assessment/Plan: -Symbicort -O2 via NC -keep SpO2 >90% Code(s): J44.9 - CHRONIC OBSTRUCTIVE PULMONARY DISEASE, UNSPECIFIED Qualifiers: COPD type: unspecified COPD Qualified Code(s): J44.9 - Chronic obstructive pulmonary disease, unspecified (5) Diabetes Assessment/Plan: -BGM ACHS -Januvia -ISS -diabetic diet Code(s): E11.9 - TYPE 2 DIABETES MELLITUS WITHOUT COMPLICATIONS Assessment/Plan see problem list dvt ppx
--- NOTE | 2019-01-19 14:13 | CON.CARD ---
Consult Consult Specialty:: cardiology Referred by:: amy Reason for Consultation:: Syncope - History of Present Illness Chief Complaint: Syncope History of Present Illness: The patient is a 63-year-old female, with a history of diabetes, hypertension, hyperlipidemia, COPD, pancreatitis, hypothyroidism, pyelonephritis, now admitted with syncope at home. As per the patient (told by her daughter) she was standing up in the kitchen and felt lightheaded. She was able to make it to her bed. Shortly after she stood up to walk to the bathroom when she passed out. The patient has no recollections of the events. She had a similar episode approximately one year ago. She is currently comfortable and symptom free. Back to her baseline. Denies chest pains and shortness of breath. No palpitations. 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 04/06/18) Psych: Yes: Bipolar, Depression Musculoskeletal: Yes: Chronic low back pain, Osteoarthritis, Other (Herniated discs, osteoporosis) ENT: Yes: Sinusitis Endocrine: Yes: Diabetes Mellitus, Hypothyroidism - Past Surgical History Past Surgical History: Yes: Appendectomy, Arthrosocopy (left knee), Cholecystectomy (laparoscopic), (x3), Tonsillectomy - Alcohol/Substance Use Hx Alcohol Use: No History of Substance Use: reports: Cocaine (in remote past, none for many years ) - Smoking History Smoking history: Former smoker Have you smoked in the past 12 months: No Aproximately how many cigarettes per day: 1 If you are a former smoker, when did you quit?: 2017 - Social History Usual Living Arrangement: With Significant Other ADL: Independent Home Medications - Allergies Allergies/Adverse Reactions: Allergies Allergy/AdvReac Type Severity Reaction Status Date / Time No Known Allergies Allergy Verified 11/22/18 11:34 - Home Medications Home Medications: Ambulatory Orders Atorvastatin Ca [Lipitor] 20 mg PO HS #0 tab 04/28/17 Canagliflozin [Invokana] 300 mg PO DAILY #0 tab 04/28/17 Omeprazole 40 mg PO DAILY #0 cap 04/28/17 traZODone HCL [Trazodone HCl] 100 mg PO HS 05/23/18 Budesonide/Formeterol Fumarate [SYMBICORT 160/4.5mcg -] 1 inh PO PRN PRN Linaclotide [Linzess] 72 mcg PO DAILY 05/29/18 Tramadol HCl/Acetaminophen [Ultracet Tablet] 1 each PO BID PRN 05/29/18 Gabapentin [Neurontin -] 600 mg PO TID #90 capsule 05/31/18 Losartan Potassium [Cozaar -] 100 mg PO DAILY tablet 05/31/18 Lamotrigine [LaMICtal -] 100 mg PO DAILY 06/30/18 Loratadine [Claritin -] 10 mg PO PRN PRN 09/22/18 Semaglutide [Ozempic] 1 mg SQ WEEKLY 11/21/18 Calcium Carbonate [Calcium] 500 mg PO DAILY 01/18/19 Ergocalciferol [Vitamin D2] 50,000 unit PO Q7D@1000 01/18/19 Venlafaxine HCl ER [Effexor Xr -] 150 mg PO BID 01/18/19 Family Disease History - Family Disease History Family Disease History: Heart Disease: Sister (SD), Other: Father (father's side with seizures but not him), Mother (mother's side with DM but not her) Vital Signs: Vital Signs Temperature 97.6 F 01/19/19 10:01 Pulse Rate 88 01/19/19 10:01 Respiratory Rate 18 01/19/19 10:01 Blood Pressure 111/65 01/19/19 10:01 O2 Sat by Pulse Oximetry (%) 95 01/19/19 10:03 Constitutional: Yes: Well Nourished, No Distress, Calm Eyes: Yes: WNL, Conjunctiva Clear, EOM Intact HENT: Yes: WNL, Atraumatic, Normocephalic Neck: Yes: WNL, Supple, Trachea Midline Respiratory: Yes: WNL, Regular, CTA Bilaterally Gastrointestinal: Yes: WNL, Normal Bowel Sounds, Soft Renal/: Yes: WNL Cardiovascular: Yes: WNL, Regular Rate and Rhythm JVD: No Carotid Bruit: No Musculoskeletal: Yes: WNL Extremities: Yes: WNL Edema: No Peripheral Pulses WNL: Yes Integumentary: Yes: WNL Neurological: Yes: WNL, Alert, Oriented ...Motor Strength: WNL Psychiatric: Yes: WNL - Other Data Labs, Other Data: CBC, BMP 01/19/19 05:00 01/19/19 05:00 INR, PTT INR 1.02 (0.83-1.09) 01/18/19 02:00 Assessment/Plan The patient is a 63-year-old female, with a history of diabetes, hypertension, hyperlipidemia, COPD, pancreatitis, hypothyroidism, pyelonephritis, now admitted with syncope at home. As per the patient (told by her daughter) she was standing up in the kitchen and felt lightheaded. She was able to make it to her bed. Shortly after she stood up to walk to the bathroom when she passed out. The patient has no recollections of the events. She had a similar episode approximately one year ago. She is currently comfortable and symptom free. Back to her baseline. Denies chest pains and shortness of breath. No palpitations. The patient's echocardiogram was essentially normal. Telemetry shows sinus rhythm. No pauses. No arrhythmias documented. Please encourage oral fluid intake. Continue home medications. No need for further cardiac monitoring. No need for further cardiac testing. Please arrange for an outpatient follow-up appointment with within one week of her discharge, for considerations of ambulatory monitoring. Please do not hesitate to call us PRN.
[2019-01-19] MEDS: ATORVASTATIN CA 20 MG TABLET (FP) PO SCH (21:52)
[2019-01-19] MEDS: traZODone HCL 100 MG TABLET (FP) PO SCH (21:52)
[2019-01-19] MEDS ORDERED: DOCUSATE SODIUM 100 MG CAPSULE (FP) PO SCH (22:00)
[2019-01-19] MEDS: ARTIFICIAL TEARS (POLYVINYL ALCOHOL) OPTH DROPS OU SCH (23:29)
[2019-01-20] MEDS: GABAPENTIN 300 MG CAPSULE (FP) PO SCH (05:59)
[2019-01-20] MEDS: traMADol HCL 50 MG TABLET PO PRN (05:59)
[2019-01-20] MEDS: sitaGLIPtin PHOSPHATE 50 MG TABLET PO SCH (06:00)
[2019-01-20 06:15] LABS: HEMOGLOBIN 12.9 GM/dL (10.7-15.3); MCH 27.8 pg (25.7-33.7); MEAN CELL VOLUME 84.2 fl (80-96); MEAN PLT VOLUME 9.1 fl (7.5-11.1); PLATELET COUNT 197 K/MM3 (134-434); RBC 4.64 M/mm3 (3.60-5.2); RDW 14.2 % (11.6-15.6); WHITE BLOOD COUNT 7.4 K/mm3 (4.0-10.0)
[2019-01-20] MEDS: INSULIN SLIDING SCALE (NOVOLOG) 1 VIAL SQ SCH ×2 (06:15→11:56)
[2019-01-20 06:48] LABS: CREATININE 0.6 mg/dL (0.55-1.3)
[2019-01-20 06:49] LABS: ALBUMIN 3.2 g/dl (3.4-5.0); BILIRUBIN,TOTAL 0.2 mg/dL (0.2-1); CALCIUM 8.7 mg/dL (8.5-10.1); POTASSIUM 3.8 mmol/L (3.5-5.1)
[2019-01-20] MEDS: SODIUM CHLORIDE 1,000 ML IV SCH (07:19)
[2019-01-20] MEDS ORDERED: PT OWN MED DRAWER 7, Y5N ONE (09:51)
[2019-01-20] MEDS: VENLAFAXINE HCL 75 MG E.R. CAPSULES (FP) PO SCH (10:04)
[2019-01-20] MEDS: ARTIFICIAL TEARS (POLYVINYL ALCOHOL) OPTH DROPS OU SCH (10:04)
[2019-01-20] MEDS: PANTOPRAZOLE 40 MG TABLET (FP) PO SCH (10:05)
[2019-01-20] MEDS: ENOXAPARIN NA (PORCINE) 40 MG/0.4 ML DISP.SYRIN SQ SCH (10:05)
[2019-01-20] MEDS: lamoTRIgine 100 MG TABLET (FP) PO SCH (10:05)
[2019-01-20] MEDS: BUDESONIDE/FORMETEROL FUMARATE 160/4.5 mcg INHALER IH SCH (10:06)
[2019-01-20 10:12] VITALS: BP 125/87; PULSE 88; TEMP 97.7
--- NOTE | 2019-01-20 10:58 | DS ---
Physical Examination Vital Signs: Vital Signs Temperature 97.7 F 01/20/19 10:11 Pulse Rate 88 01/20/19 10:11 Respiratory Rate 18 01/20/19 10:11 Blood Pressure 125/87 01/20/19 10:11 O2 Sat by Pulse Oximetry (%) 99 01/19/19 21:00 Findings/Remarks: Patient is a 63 y/o female with past medical history of HTN, HLD, NIDDM, Migraines, Bipolar disorder, Depression, IBS-C, Pancreatitis, MRSA in maxillary sinus, PVD, COPD/Asthma. Patient presented to ER after having 2 syncopal episodes at home. Patient states that she was in the bathroom having a BM when she passed out and lost consciousness. While being helped up by her daughter she passed out again with LOC. Patient was then brought to ER and was noted to be hypotensive. She says that she has experienced similar episodes like this in the past. Constitutional: Yes: No Distress, Calm Eyes: Yes: Conjunctiva Clear HENT: Yes: Atraumatic Cardiovascular: Yes: Regular Rate and Rhythm Respiratory: Yes: Regular, CTA Bilaterally Gastrointestinal: Yes: Normal Bowel Sounds, Soft Musculoskeletal: Yes: WNL Extremities: Yes: WNL Edema: No Neurological: Yes: Alert, Oriented Psychiatric: Yes: Alert, Oriented Labs: CBC, BMP 01/20/19 05:15 01/20/19 05:15 Microbiology 01/18/19 16:15 Urine - Urine Clean Catch Urine Culture - Final NO GROWTH OBTAINED Discharge Summary Reason For Visit: SYNCOPE AND COLLAPSE Current Active Problems Dehydration (Acute) Hypotension (Acute) Syncope and collapse (Acute) Hospital Course: see progress notes Laboratory Tests 01/18/19 01/18/19 01/18/19 02:00 02:00 02:00 WBC 10.6 H RBC 4.64 Hgb 13.0 Hct 39.5 MCV 85.1 MCH 28.1 MCHC 33.0 RDW 14.0 Plt Count 188 D MPV 8.6 Absolute Neuts (auto) 5.9 Neutrophils % 56.1 D Lymphocytes % 32.7 D Monocytes % 10.6 H Eosinophils % 0.3 D Basophils % 0.3 Nucleated RBC % 0 PT with INR 12.00 INR 1.02 Sodium 140 Potassium 3.7 Chloride 108 H Carbon Dioxide 27 Anion Gap 5 L BUN 17.5 Creatinine 0.9 Est GFR (CKD-EPI)AfAm 78.32 Est GFR (CKD-EPI)NonAf 67.57 POC Glucometer Random Glucose 83 Hemoglobin A1c % Calcium 8.4 L Magnesium 1.9 Total Bilirubin 0.2 AST 26 ALT 20 Alkaline Phosphatase 44 L Creatine Kinase 143 Troponin I < 0.02 Total Protein 6.3 L Albumin 3.5 Triglycerides Cholesterol Total LDL Cholesterol HDL Cholesterol Urine Color Urine Appearance Urine pH Ur Specific [place] Urine Protein Urine Glucose (UA) Urine Ketones Urine Blood Urine Nitrite Urine Bilirubin Urine Urobilinogen Ur Leukocyte Esterase 01/18/19 01/18/19 01/18/19 02:00 06:12 12:48 WBC RBC Hgb Hct MCV MCH MCHC RDW Plt Count MPV Absolute Neuts (auto) Neutrophils % Lymphocytes % Monocytes % Eosinophils % Basophils % Nucleated RBC % PT with INR INR Sodium Potassium Chloride Carbon Dioxide Anion Gap BUN Creatinine Est GFR (CKD-EPI)AfAm Est GFR (CKD-EPI)NonAf POC Glucometer 86 86 Random Glucose Hemoglobin A1c % 6.3 Calcium Magnesium Total Bilirubin AST ALT Alkaline Phosphatase Creatine Kinase Troponin I Total Protein Albumin Triglycerides Cholesterol Total LDL Cholesterol HDL Cholesterol Urine Color Urine Appearance Urine pH Ur Specific [place] Urine Protein Urine Glucose (UA) Urine Ketones Urine Blood Urine Nitrite Urine Bilirubin Urine Urobilinogen Ur Leukocyte Esterase 01/18/19 01/18/19 01/18/19 16:15 17:18 21:52 WBC RBC Hgb Hct MCV MCH MCHC RDW Plt Count MPV Absolute Neuts (auto) Neutrophils % Lymphocytes % Monocytes % Eosinophils % Basophils % Nucleated RBC % PT with INR INR Sodium Potassium Chloride Carbon Dioxide Anion Gap BUN Creatinine Est GFR (CKD-EPI)AfAm Est GFR (CKD-EPI)NonAf POC Glucometer 100 89 Random Glucose Hemoglobin A1c % Calcium Magnesium Total Bilirubin AST ALT Alkaline Phosphatase Creatine Kinase Troponin I Total Protein Albumin Triglycerides Cholesterol Total LDL Cholesterol HDL Cholesterol Urine Color Yellow Urine Appearance Clear Urine pH 8.0 Ur Specific [place] 1.026 Urine Protein Negative Urine Glucose (UA) 3+ H Urine Ketones Negative Urine Blood Negative Urine Nitrite Negative Urine Bilirubin Negative Urine Urobilinogen 0.2 Ur Leukocyte Esterase Negative 01/19/19 01/19/19 01/19/19 05:00 05:00 05:45 WBC 6.2 RBC 4.66 Hgb 12.9 Hct 39.3 MCV 84.2 MCH 27.7 MCHC 32.9 RDW 13.7 Plt Count 205 MPV 8.8 Absolute Neuts (auto) 2.7 Neutrophils % 43.1 D Lymphocytes % 46.3 H D Monocytes % 10.0 Eosinophils % 0.4 Basophils % 0.2 Nucleated RBC % 0 PT with INR INR Sodium 146 H Potassium 4.0 Chloride 114 H Carbon Dioxide 28 Anion Gap 5 L BUN 15.5 Creatinine 0.8 Est GFR (CKD-EPI)AfAm 90.30 Est GFR (CKD-EPI)NonAf 77.91 POC Glucometer 93 Random Glucose 92 Hemoglobin A1c % Calcium 8.7 Magnesium Total Bilirubin 0.2 AST 16 ALT 19 Alkaline Phosphatase 38 L Creatine Kinase Troponin I Total Protein 6.1 L Albumin 3.2 L Triglycerides 127 Cholesterol 149 Total LDL Cholesterol 71 HDL Cholesterol 59 Urine Color Urine Appearance Urine pH Ur Specific [place] Urine Protein Urine Glucose (UA) Urine Ketones Urine Blood Urine Nitrite Urine Bilirubin Urine Urobilinogen Ur Leukocyte Esterase 01/19/19 01/19/19 01/19/19 12:03 17:11 21:50 WBC RBC Hgb Hct MCV MCH MCHC RDW Plt Count MPV Absolute Neuts (auto) Neutrophils % Lymphocytes % Monocytes % Eosinophils % Basophils % Nucleated RBC % PT with INR INR Sodium Potassium Chloride Carbon Dioxide Anion Gap BUN Creatinine Est GFR (CKD-EPI)AfAm Est GFR (CKD-EPI)NonAf POC Glucometer 101 101 94 Random Glucose Hemoglobin A1c % Calcium Magnesium Total Bilirubin AST ALT Alkaline Phosphatase Creatine Kinase Troponin I Total Protein Albumin Triglycerides Cholesterol Total LDL Cholesterol HDL Cholesterol Urine Color Urine Appearance Urine pH Ur Specific [place] Urine Protein Urine Glucose (UA) Urine Ketones Urine Blood Urine Nitrite Urine Bilirubin Urine Urobilinogen Ur Leukocyte Esterase 01/20/19 01/20/19 01/20/19 05:15 05:15 05:57 WBC 7.4 RBC 4.64 Hgb 12.9 Hct 39.0 MCV 84.2 MCH 27.8 MCHC 33.0 RDW 14.2 Plt Count 197 MPV 9.1 Absolute Neuts (auto) Neutrophils % Lymphocytes % Monocytes % Eosinophils % Basophils % Nucleated RBC % PT with INR INR Sodium 145 Potassium 3.8 Chloride 114 H Carbon Dioxide 25 Anion Gap 7 L BUN 13.0 Creatinine 0.6 Est GFR (CKD-EPI)AfAm 111.64 Est GFR (CKD-EPI)NonAf 96.33 POC Glucometer 96 Random Glucose 91 Hemoglobin A1c % Calcium 8.7 Magnesium Total Bilirubin 0.2 AST 12 L ALT 18 Alkaline Phosphatase 38 L Creatine Kinase Troponin I Total Protein 6.0 L Albumin 3.2 L Triglycerides Cholesterol Total LDL Cholesterol HDL Cholesterol Urine Color Urine Appearance Urine pH Ur Specific [place] Urine Protein Urine Glucose (UA) Urine Ketones Urine Blood Urine Nitrite Urine Bilirubin Urine Urobilinogen Ur Leukocyte Esterase Active Medications Generic Name Dose Route Start Last Admin Trade Name Freq PRN Reason Stop Dose Admin Acetaminophen 650 mg 01/18/19 05:54 01/19/19 16:06 Tylenol - PO 650 mg Q6H PRN Administration Fever Artificial Tears 1 drop 01/19/19 22:15 01/20/19 10:04 Artificial Tears OU 1 drop BID ALLI Administration Atorvastatin Calcium 20 mg 01/18/19 22:00 01/19/19 21:52 Lipitor - PO 20 mg HS ALLI Administration Budesonide/Formoterol Fumarate 1 puff 01/18/19 10:00 01/20/19 10:06 Symbicort 160/4.5mcg - IH Not Given BID ALLI Docusate Sodium 300 mg 01/19/19 22:00 01/19/19 21:51 Colace - PO 300 mg HS ALLI Administration Enoxaparin Sodium 40 mg 01/19/19 10:00 01/20/19 10:05 Lovenox - SQ 40 mg DAILY ALLI Administration Gabapentin 600 mg 01/18/19 14:00 01/20/19 05:59 Neurontin - PO 600 mg TID ALLI Administration Insulin Aspart 1 vial 01/18/19 07:00 01/20/19 06:15 Novolog Vial Sliding Scale - SQ Not Given ACHS [facility] Protocol Lamotrigine 100 mg 01/18/19 10:00 01/20/19 10:05 Lamictal - PO 100 mg DAILY ALLI Administration Non-Formulary Medication 72 mcg 01/18/19 10:00 Linaclotide [Linzess] PO DAILY ALLI Pantoprazole Sodium 40 mg 01/18/19 10:00 01/20/19 10:05 Protonix - PO 40 mg DAILY ALLI Administration Sitagliptin Phosphate 50 mg 01/19/19 07:00 01/20/19 06:00 Januvia - PO 50 mg DAILY@0700 ALLI Administration Tramadol HCl 50 mg 01/18/19 06:36 01/20/19 05:59 Ultram - PO 50 mg Q6H PRN Administration PAIN 4-6 Trazodone HCl 100 mg 01/18/19 22:00 01/19/19 21:52 Desyrel - PO 100 mg HS ALLI Administration Venlafaxine HCl 150 mg 01/18/19 10:00 01/20/19 10:04 Effexor Xr - PO 150 mg BID ALLI Administration Microbiology 01/18/19 16:15 Urine - Urine Clean Catch Urine Culture - Final NO GROWTH OBTAINED Condition: Stable - Instructions Diet, Activity, Other Instructions: follow up with PMD 48hrs after discharge follow up with [employer] [facility] Green 1 week after discharge resume home medication as prescribed if develop respiratory distress, chest pain, syncope, dizziness return to ER Referrals: Napoleon Green MD [Staff Physician] - Disposition: HOME - Home Medications Comprehensive Discharge Medication List: Ambulatory Orders Atorvastatin Ca [Lipitor] 20 mg PO HS #0 tab 04/28/17 Canagliflozin [Invokana] 300 mg PO DAILY #0 tab 04/28/17 Omeprazole 40 mg PO DAILY #0 cap 04/28/17 traZODone HCL [Trazodone HCl] 100 mg PO HS 05/23/18 Budesonide/Formeterol Fumarate [SYMBICORT 160/4.5mcg -] 1 inh PO PRN PRN Linaclotide [Linzess] 72 mcg PO DAILY 05/29/18 Tramadol HCl/Acetaminophen [Ultracet Tablet] 1 each PO BID PRN 05/29/18 Gabapentin [Neurontin -] 600 mg PO TID #90 capsule 05/31/18 Losartan Potassium [Cozaar -] 100 mg PO DAILY tablet 05/31/18 Lamotrigine [LaMICtal -] 100 mg PO DAILY 06/30/18 Loratadine [Claritin -] 10 mg PO PRN PRN 09/22/18 Semaglutide [Ozempic] 1 mg SQ WEEKLY 11/21/18 Calcium Carbonate [Calcium] 500 mg PO DAILY 01/18/19 Ergocalciferol [Vitamin D2] 50,000 unit PO Q7D@1000 01/18/19 Venlafaxine HCl ER [Effexor Xr -] 150 mg PO BID 01/18/19 Artificial Tears Eye Drops 1 TID 01/19/19
== END 2019-01-20 13:27 | disposition home or self-care (01) ==
LOC: JER 01:09 → INTOOBSV 04:24 → JERBED 04:24 → J4S 15:12
PROVIDERS: ADMIT Internal Medicine; ATTEND Family Medicine
PROC: 3E033NZ Introduction of Analgesics, Hypnotics, Sedatives into Peripheral Vein, Percutaneous Approach (ICD-10-PCS; principal; 2019-01-18)
PROC: 3E0337Z Introduction of Electrolytic and Water Balance Substance into Peripheral Vein, Percutaneous Approach (ICD-10-PCS; 2019-01-18)
PROC: 3E033GC Introduction of Other Therapeutic Substance into Peripheral Vein, Percutaneous Approach (ICD-10-PCS; 2019-01-18)
PROC: 3E013GC Introduction of Other Therapeutic Substance into Subcutaneous Tissue, Percutaneous Approach (ICD-10-PCS; 2019-01-18)
DX: R55 Syncope and collapse (principal); E86.0 Dehydration; I10 Essential (primary) hypertension; E78.5 Hyperlipidemia, unspecified; E11.9 Type 2 diabetes mellitus without complications; J44.9 Chronic obstructive pulmonary disease, unspecified; E03.9 Hypothyroidism, unspecified; F31.9 Bipolar disorder, unspecified; M25.511 Pain in right shoulder; R51 Headache; D72.829 Elevated white blood cell count, unspecified; R42 Dizziness and giddiness; I95.9 Hypotension, unspecified; Z86.14 Personal history of Methicillin resistant Staphylococcus aureus infection
CPT/HCPCS: 36415; 70450-TC; 71045-TC-FY; 73030-TC-LT-FY; 80053; 80061; 81003; 82550; 82962; 83036; 83721; 83735; 84484; 85025; 85027; 85610; 87086; 93005; 93010; 93306-TC; 96372; 96374; 96375; 99285-25; G0378; J0131; J7030

== ENCOUNTER 2019-02-24 11:49 | Emergency (ER) | payer OTHER ==
[2019-02-24 11:57] VITALS: TEMP 97.8; BMI 25.7
--- NOTE | 2019-02-24 12:51 | PDOC ---
History of Present Illness - General Chief Complaint: Headache Stated Complaint: HEADACHE Time Seen by Provider: 02/24/19 12:08 History Source: Patient Exam Limitations: No Limitations - History of Present Illness Initial Comments: 02/24/19 12:46 Phylicia Alonso is a 63F with PMH migraine, HTN, DM, bipolar depression, and COPD presenting with headache. Reports 5 days of a headache, described as in both temples and also at the top of her head, constant at almost all times, does not relieve with position. Reports blurry vision in L>R eyes and tears. Sees neurologist for migraines, takes propanolol as a preventative. Also has Tramadol and fioricet, took fioricet today with no relief. Has had similar episodes in the past, was previously admitted to hospital for refractory MISHRA. Has been vomiting NBNB 1-2x per day, last time 1-2 days ago. Denies SOB, chest pain, abd pain, urinary sx, diarrhea/constipation. Poor NPO, tolerating solids. Past History - Past Medical History Allergies/Adverse Reactions: Allergies Allergy/AdvReac Type Severity Reaction Status Date / Time No Known Allergies Allergy Verified 02/24/19 11:57 Home Medications: Ambulatory Orders Atorvastatin Ca [Lipitor] 20 mg PO HS #0 tab 04/28/17 Canagliflozin [Invokana] 300 mg PO DAILY #0 tab 04/28/17 Omeprazole 40 mg PO DAILY #0 cap 04/28/17 traZODone HCL [Trazodone HCl] 100 mg PO HS 05/23/18 Budesonide/Formeterol Fumarate [SYMBICORT 160/4.5mcg -] 1 inh PO PRN PRN Linaclotide [Linzess] 72 mcg PO DAILY 05/29/18 Tramadol HCl/Acetaminophen [Ultracet Tablet] 1 each PO BID PRN 05/29/18 Gabapentin [Neurontin -] 600 mg PO TID #90 capsule 05/31/18 Losartan Potassium [Cozaar -] 100 mg PO DAILY tablet 05/31/18 Lamotrigine [LaMICtal -] 100 mg PO DAILY 06/30/18 Loratadine [Claritin -] 10 mg PO PRN PRN 09/22/18 Semaglutide [Ozempic] 1 mg SQ WEEKLY 11/21/18 Calcium Carbonate [Calcium] 500 mg PO DAILY 01/18/19 Ergocalciferol [Vitamin D2] 50,000 unit PO Q7D@1000 01/18/19 Venlafaxine HCl ER [Effexor Xr -] 150 mg PO BID 01/18/19 Anemia: No Asthma: Yes (PNEUMONIA 8 MONTHS AGO) Cancer: No Cardiac Disorders: No CVA: No COPD: Yes CHF: No Dementia: No Diabetes: Yes (NIDM) GI Disorders: No Disorders: No HTN: Yes Hypercholesterolemia: Yes Liver Disease: No Seizures: No Thyroid Disease: Yes (HYPO.) - Surgical History Appendectomy: Yes Cholecystectomy: Yes Orthopedic Surgery: Yes (rotator cuff cyst removal) - Immunization History Td Vaccination: No TDAP Vaccination: No Immunization Up to Date: No - Suicide/Smoking/Psychosocial Hx Smoking History: Never smoked Have you smoked in the past 12 months: No Number of Cigarettes Smoked Daily: 1 If you are a former smoker, when did you quit?: 2017 Cigars Per Day: 0 'Breaking Loose' booklet given: 04/26/17 Hx Alcohol Use: No Drug/Substance Use Hx: No Substance Use Type: None Hx Substance Use Treatment: No Neuro Specific PMHX - Complaint Specific PMHX Migraine: Yes Review of Systems - Review of Systems Able to Perform ROS?: Yes Constitutional: No: Chills, Fever, Weakness HEENTM: Yes: Blurred Vision, Recent change in vision. No: Hearing Loss, Throat Pain, Difficulty Swallowing Respiratory: No: Cough, Shortness of Breath, Wheezing Cardiac (ROS): No: Chest Pain, Palpitations, Syncope ABD/GI: No: Constipated, Diarrhea, Nausea, Vomiting : No: Burning, Dysuria, Discharge, Frequency, Flank Pain Musculoskeletal: No: Back Pain, Joint Pain Integumentary: No: Bruising, Change in Color Neurological: Yes: Headache, Dizziness. No: Unsteady Gait All Other Systems: Reviewed and Negative *Physical Exam - Vital Signs Last Vital Signs Temp Pulse Resp BP Pulse Ox 97.8 F 80 16 97/70 98 02/24/19 11:55 02/24/19 11:55 02/24/19 11:55 02/24/19 11:55 02/24/19 11:55 - Physical Exam General Appearance: Yes: Nourished, Appropriately Dressed, Mild Distress HEENT: positive: EOMI, MEAGH[place], Normal Voice, Symmetrical, Pharynx Normal, Photophobia, Other (tenderness to pressure on temples). negative: Scleral Icterus (R), Scleral Icterus (L), Pharyngeal Erythema, Tonsillar Exudate, Rhinorrhea Neck: positive: Trachea midline, Supple. negative: Tender, Lymphadenopathy (R) , Lymphadenopathy (L) Respiratory/Chest: positive: Lungs Clear, Normal Breath Sounds. negative: Chest Tender, Respiratory Distress, Accessory Muscle Use, Crackles, Rales, Rhonchi, Stridor, Wheezing Cardiovascular: positive: Regular Rhythm, Regular Rate, Other (no murmurs, gallops, rubs) Gastrointestinal/Abdominal: positive: Normal Bowel Sounds, Flat, Soft. negative : Tender, Organomegaly Musculoskeletal: positive: Normal Inspection Extremity: positive: Normal Capillary Refill, Normal Inspection, Normal Range of Motion. negative: Tender Integumentary: positive: Normal Color, Dry, Warm Neurologic: positive: esol instructor II-XII NML intact, Fully Oriented, Alert, Normal Mood/ Affect, Normal Response, Motor Strength 5/5, Other (ambulates to restroom with normal gait, no unsteadiness) ED Treatment Course - LABORATORY CBC & Chemistry Diagram: 02/24/19 13:21 02/24/19 13:21 Medical Decision Making - Medical Decision Making 02/24/19 13:04 Phylicia Alonso is a 63F with PMH migraine, HTN, DM, bipolar depression, and COPD presenting with headache. Patient reports a similar headache to her normal headaches with steady onset and constant pain that she cannot control, no new focal deficits notable concerning for new intracranial process, less need for CT at this time. MISHRA more likely 2/2 migraines given lack of other symptoms, will evaluate with CMP, CBC. Will trial reglan 10mg IV and benadryl 20mg IV for migraine relief. 02/24/19 15:41 Patient re-assessed after medications given, headache pain has slightly and patient is stable. Giving Toradol 30mg IV for persistent headache. Po challenged with sandwich. Only complaint at this time is persistent headache, which can be treated outpatient with home meds. Will send home with f/u instructions. *DC/Admit/Observation/Transfer Diagnosis at time of Disposition: Migraine Qualifiers: Migraine type: unspecified - Discharge Dispostion Disposition: HOME Condition at time of disposition: Improved Decision to Admit order: No - Referrals Referrals: Abel Jackson MD [Primary Care Provider] - - Patient Instructions Printed Discharge Instructions: DI for Migraine Additional Instructions: Today you were evaluated for headaches. You described that you often have migraines, and this one was a more severe form of the migraines you currently have. To help ease your pain, we gave you Benadryl, Toradol, and Reglan by IV, two medications that help you with headaches, and you felt some improvement. If you continue to have head pain, feel worsening headaches, have worsening nausea/vomiting, have worsening abdominal pain, or have more loss of vision, are unsteady on your feet, or have fever, chest pain, or any other symptoms, please return too the emergency room as soon as possible. Please see your doctor or neurlogist in the next week for follow-up to your symptoms. Print Language: URDU - Post Discharge Activity
[2019-02-24] MEDS ORDERED: METOCLOPRAMIDE HCL INJECTION 10 MG/2 ML VIAL IVPUSH ONE (12:58)
[2019-02-24] MEDS ORDERED: METOCLOPRAMIDE HCL INJECTION 10 MG/2 ML VIAL ONE (13:14)
[2019-02-24 13:45] LABS: BASO % 0.8 % (0-2.0); HEMATOCRIT 42.2 % (32.4-45.2); HEMOGLOBIN 14.2 GM/dL (10.7-15.3); LYMPH % 38.7 % (8-40); MCHC 33.5 g/dl (32.0-36.0); MEAN CELL VOLUME 83.6 fl (80-96); NEUT % 50.5 % (42.8-82.8); PLATELET COUNT 259 K/MM3 (134-434); RBC 5.05 M/mm3 (3.60-5.2); RDW 14.1 % (11.6-15.6); WHITE BLOOD COUNT 10.5 K/mm3 (4.0-10.0)
[2019-02-24 14:25] LABS: ALBUMIN 3.5 g/dl (3.4-5.0); BILIRUBIN,TOTAL 0.2 mg/dL (0.2-1); BLOOD UREA NITROGEN 9.9 mg/dL (7-18); CALCIUM 9.2 mg/dL (8.5-10.1); CREATININE 0.7 mg/dL (0.55-1.3); MAGNESIUM 2.2 mg/dL (1.8-2.4); POTASSIUM 4.1 mmol/L (3.5-5.1); TOT PROT 6.7 g/dl (6.4-8.2)
--- NOTE | 2019-02-24 14:35 | PDOC ---
Documentation entered by Maribel Patino SCRIBE, acting as scribe for Ronit Guidry MD. Ronit Guidry MD: This documentation has been prepared by the Sukumar duran Mackenzie, SCRIBE, under my direction and personally reviewed by me in its entirety. I confirm that the documentation accurately reflects all work , treatment, procedures, and medical decision making performed by me. Attending Attestation - Resident Resident Name: Matteo Owens - ED Attending Attestation I have performed the following: I have examined & evaluated the patient, The case was reviewed & discussed with the resident, I agree w/resident's findings & plan - HPI HPI: The patient is a 63 year old female, with a significant PMH of HTN, DM, bipolar depression, COPD, and chronic migraines who presents to the emergency department with a severe headache for the past 6 days. Patient states her headache has been constant since onset, and is described as sharp unwavering pain in her temples. Patient states the headache is accompanied by photophobia, nausea (1-2 episodes of vomiting a day NBNB last episode 2 days ago) and some left sided blurry vision. Patient notes administering Fioricet today however her symptoms have not been alleviated much. The patient denies chest pain, shortness of breath, and dizziness. Denies fever, chills, diarrhea and constipation. Denies dysuria, frequency, urgency and hematuria. Allergies: NKA PCP: Dr. Jackson 02/24/19 13:38 - Physicial Exam PE: GENERAL: Awake, alert, and fully oriented, in no acute distress HEAD: No signs of trauma EYES: PERRLA, EOMI, sclera anicteric, conjunctiva clear ENT: Auricles normal inspection, hearing grossly normal, nares patent, oropharynx clear without exudates. Moist mucosa NECK: Normal ROM, supple, no lymphadenopathy, JVD, or masses LUNGS: Breath sounds equal, clear to auscultation bilaterally. No wheezes, and no crackles HEART: Regular rate and rhythm, normal S1 and S2, no murmurs, rubs or gallops ABDOMEN: Soft, nontender, normoactive bowel sounds. No guarding, no rebound. No masses EXTREMITIES: Normal range of motion, no edema. No clubbing or cyanosis. No cords, erythema, or tenderness NEUROLOGICAL: Cranial nerves II through XII grossly intact. Normal speech, normal gait SKIN: Warm, Dry, normal turgor, no rashes or lesions noted. 02/24/19 13:39 - Medical Decision Making 02/24/19 14:33 pt presents to the ED complaining of a 5 day history of headache consistent with , but worse than, her chronic migraine headache. Neurologically intact. Will treat with reglan and reassess. Low suspicion for subarachnoid or other life threatening causes of headache. Will discharge home when pain is controlled.
[2019-02-24] MEDS ORDERED: KETOROLAC TROMETHAMINE 30 MG/1 ML VIAL IVPUSH ONE (16:09)
[2019-02-24] MEDS ORDERED: KETOROLAC TROMETHAMINE 30 MG/1 ML VIAL ONE (16:36)
[2019-02-24 17:08] VITALS: BP 97/68; PULSE 71
== END 2019-02-24 17:00 | disposition home or self-care (01) ==
LOC: JER 11:49
PROC: 3E033GC Introduction of Other Therapeutic Substance into Peripheral Vein, Percutaneous Approach (ICD-10-PCS; principal; 2019-02-24)
PROC: 3E0333Z Introduction of Anti-inflammatory into Peripheral Vein, Percutaneous Approach (ICD-10-PCS; 2019-02-24)
DX: R51 Headache (principal)
CPT/HCPCS: 36415; 80053; 83735; 85025; 96374; 96375; 99283-25

== ENCOUNTER 2019-09-13 13:04 | Emergency (ER) | payer OTHER ==
[2019-09-13 13:09] VITALS: BMI 25.7
[2019-09-13] MEDS ORDERED: METOCLOPRAMIDE HCL INJECTION 10 MG/2 ML VIAL IVPUSH ONE (14:31)
[2019-09-13] MEDS ORDERED: ACETAMINOPHEN 1000 MG/100 ML VIAL (NON FORMULARY) IVPB ONE (14:31)
[2019-09-13] MEDS ORDERED: FAMOTIDINE 20 MG/50 ML IVPB 20 MG/50 ML MG IVPB ONE ×2 (14:31→15:29)
--- NOTE | 2019-09-13 14:45 | PDOC ---
History of Present Illness - General Chief Complaint: Pain Stated Complaint: ABD PAIN/VOMTITNG Time Seen by Provider: 09/13/19 14:01 - History of Present Illness Initial Comments: 09/13/19 14:50 63 y.o. vegetarian F w/ PMH of HTN, HLD, DM, Migraines, Bipolar Disorder/ Depression, IBS-C, non ulcerative dyspepsia, Pancreatitis, MRSA infection in Maxillary Sinus (04/19), PVD, COPD/Asthma, osteoporosis ,fatty liver presents to the ED for acute onset of abdominal pain for the past 4 days. The pain is 8/10, intermittent, sharp, diffuse but worse on the RUQ and radiates to her right flank and back. The pain is relieved by eating/drinking and w/o clear exacerbating factors. Associated with Nausea/NBNB vomiting x4. Pt says her pain is worse at night and often wakes her up. Pt denies any fever, chill, change in BM, SOB, FND , urinary changes or sick contact. Pt explains that she has not made any change to her diet recently. of note, colonoscopy 5 months ago with single polyp removal PSH: 3 C sections, ovarian cyst removal, exlap, rotator cuff repair x4, tummy tuck, cosmetic breast surgery Social Hx: none, vegetarian diet Family Hx: breast cancer in aunt. pt also has lump in left breast actively being assessed PE: Gen: NAD HEENT: PERRLA, moist membranes CHEST:CTAB HEART: RRR no MRG Abdomen: + BS but hypoactive, diffuse tender more prominent on the RUQ Extremities: trace edema Assessment: based on HPI and PE, DDX include: PUD vs exacerbation of dyspepsia vs pancreatitis vs Post cholecysytectomy syndrome vs IBS-C exacerbation Plan: CBC, CMP, Mag, Phos, Lipase, EKG, CT A/P with contrast for symptomatic relief: IV tylenol, reglan, pepcid, 1L NS 09/13/19 15:37 EKG NSR, QTC 431ms 09/13/19 15:49 CBC WBC 7.3 K/mm3 (4.0-10.0) 09/13/19 15:00 RBC 4.91 M/mm3 (3.60-5.2) 09/13/19 15:00 Hgb 13.9 GM/dL (10.7-15.3) 09/13/19 15:00 Hct 41.6 % (32.4-45.2) 09/13/19 15:00 MCV 84.6 fl (80-96) 09/13/19 15:00 MCH 28.2 pg (25.7-33.7) 09/13/19 15:00 MCHC 33.4 g/dl (32.0-36.0) 09/13/19 15:00 RDW 13.3 % (11.6-15.6) 09/13/19 15:00 Plt Count 306 K/MM3 (134-434) D 09/13/19 15:00 MPV 8.5 fl (7.5-11.1) 09/13/19 15:00 Absolute Neuts (auto) 2.8 K/mm3 (1.5-8.0) 09/13/19 15:00 Neutrophils % 39.0 % (42.8-82.8) L D 09/13/19 15:00 Lymphocytes % 47.6 % (8-40) H D 09/13/19 15:00 Monocytes % 12.0 % (3.8-10.2) H 09/13/19 15:00 Eosinophils % 0.4 % (0-4.5) D 09/13/19 15:00 Basophils % 1.0 % (0-2.0) 09/13/19 15:00 Nucleated RBC % 0 % (0-0) 09/13/19 15:00 no leukocytosis 09/13/19 16:25 CMP Sodium 137 mmol/L (136-145) 09/13/19 15:00 Potassium 4.7 mmol/L (3.5-5.1) 09/13/19 15:00 Chloride 104 mmol/L (98-107) 09/13/19 15:00 Carbon Dioxide 26 mmol/L (21-32) 09/13/19 15:00 Anion Gap 7 MMOL/L (8-16) L 09/13/19 15:00 BUN 7.1 mg/dL (7-18) 09/13/19 15:00 Creatinine 0.7 mg/dL (0.55-1.3) 09/13/19 15:00 Est GFR (CKD-EPI)AfAm 106.12 09/13/19 15:00 Est GFR (CKD-EPI)NonAf 91.56 09/13/19 15:00 Random Glucose 88 mg/dL (74-106) 09/13/19 15:00 Calcium 9.1 mg/dL (8.5-10.1) 09/13/19 15:00 Phosphorus 3.5 mg/dL (2.5-4.9) 09/13/19 15:00 Magnesium 2.4 mg/dL (1.8-2.4) 09/13/19 15:00 Total Bilirubin 0.5 mg/dL (0.2-1) 09/13/19 15:00 AST 32 U/L (15-37) 09/13/19 15:00 ALT 25 U/L (13-61) 09/13/19 15:00 Alkaline Phosphatase 88 U/L (45-117) 09/13/19 15:00 Total Protein 7.5 g/dl (6.4-8.2) 09/13/19 15:00 Albumin 3.6 g/dl (3.4-5.0) 09/13/19 15:00 Lipase 128 U/L (73-393) 09/13/19 15:00 unremarkable 09/13/19 16:26 Pt endorses improvement of her symptoms s/p IVF, reglan, pepcid and tylenol based on CT finding pt can be discharged 09/13/19 18:01 CT A/P Mild to moderate air-filled distention of the ascending and transverse colon is noted. No gross obstructing lesion is identified on CT. The remainder of the exam appears unchanged in comparison to a CT study of 03/15/2019. Status post cholecystectomy. Stable 0.9 x 0.7 cm enhancing right hepatic lobe lesion possibly representing a hemangioma. Probable diffuse hepatic steatosis. Mild left adrenal gland nodularity which may be due to nodular hyperplasia versus a small adenoma. Mild to moderate left renal cortical scarring. Prominent atherosclerotic aortic vascular calcifications. Transsacral InterStim device in place 09/13/19 18:[address] is unchange. 09/13/19 18:20 UA negative 09/13/19 19:01 based on finding and pt agrees to go home and agrees to return should her symptoms return or worsens Past History - Past Medical History Allergies/Adverse Reactions: Allergies Allergy/AdvReac Type Severity Reaction Status Date / Time No Known Allergies Allergy Verified 09/13/19 13:06 Home Medications: Ambulatory Orders Atorvastatin Ca [Lipitor] 20 mg PO HS #0 tab 04/28/17 Canagliflozin [Invokana] 300 mg PO DAILY #0 tab 04/28/17 Omeprazole 40 mg PO DAILY #0 cap 04/28/17 traZODone HCL [Trazodone HCl] 100 mg PO HS 05/23/18 Budesonide/Formeterol Fumarate [SYMBICORT 160/4.5mcg -] 1 inh PO PRN PRN Linaclotide [Linzess] 72 mcg PO DAILY 05/29/18 Tramadol HCl/Acetaminophen [Ultracet Tablet] 1 each PO BID PRN 05/29/18 Gabapentin [Neurontin -] 600 mg PO TID #90 capsule 05/31/18 Losartan Potassium [Cozaar -] 100 mg PO DAILY tablet 05/31/18 Lamotrigine [LaMICtal -] 100 mg PO DAILY 06/30/18 Loratadine [Claritin -] 10 mg PO PRN PRN 09/22/18 Semaglutide [Ozempic] 1 mg SQ WEEKLY 11/21/18 Calcium Carbonate [Calcium] 500 mg PO DAILY 01/18/19 Ergocalciferol [Vitamin D2] 50,000 unit PO Q7D@1000 01/18/19 Venlafaxine HCl ER [Effexor Xr -] 150 mg PO BID 01/18/19 Anemia: No Asthma: Yes (PNEUMONIA 8 MONTHS AGO) Cancer: No Cardiac Disorders: No CVA: No COPD: Yes CHF: No Dementia: No Diabetes: Yes (NIDDM) GI Disorders: Yes (pancreatitis) Disorders: No HTN: Yes Hypercholesterolemia: Yes Liver Disease: No Seizures: No Thyroid Disease: Yes (HYPO.) - Surgical History Appendectomy: Yes Cholecystectomy: Yes Orthopedic Surgery: Yes (rotator cuff cyst removal) - Immunization History Td Vaccination: No TDAP Vaccination: No Immunization Up to Date: No - Psycho Social/Smoking Cessation Hx Smoking History: Never smoked Have you smoked in the past 12 months: No Number of Cigarettes Smoked Daily: 1 If you are a former smoker, when did you quit?: 2017 Cigars Per Day: 0 Information on smoking cessation initiated: No 'Breaking Loose' booklet given: 04/26/17 Hx Alcohol Use: No Drug/Substance Use Hx: No Substance Use Type: None Hx Substance Use Treatment: No *Physical Exam - Vital Signs Last Vital Signs Temp Pulse Resp BP Pulse Ox 98 F 90 20 134/86 100 09/13/19 13:07 09/13/19 13:07 09/13/19 13:07 09/13/19 13:07 09/13/19 13:07 ED Treatment Course - LABORATORY CBC & Chemistry Diagram: 09/13/19 15:00 09/13/19 15:00 Discharge - Discharge Information Problems reviewed: Yes Clinical Impression/Diagnosis: Nausea and vomiting Qualifiers: Vomiting type: unspecified Vomiting Intractability: unspecified Qualified Code( s): R11.2 - Nausea with vomiting, unspecified Condition: Improved Disposition: HOME - Admission No - Follow up/Referral Referrals: Danny Robertson [Primary Care Provider] - - Patient Discharge Instructions Patient Printed Discharge Instructions: DI for Nausea -- Adult, DI for Vomiting -- Adult - Post Discharge Activity
[2019-09-13] MEDS ORDERED: SODIUM CHLORIDE 1,000 ML IV SCH (15:00)
[2019-09-13] MEDS ORDERED: ACETAMINOPHEN INJECTION 100 ML IVPB ONE (15:02)
[2019-09-13] MEDS ORDERED: METOCLOPRAMIDE HCL INJECTION 10 MG/2 ML VIAL ONE (15:29)
[2019-09-13 15:36] LABS: EOS % 0.4 % (0-4.5); HEMATOCRIT 41.6 % (32.4-45.2); HEMOGLOBIN 13.9 GM/dL (10.7-15.3); LYMPH % 47.6 % (8-40); MCH 28.2 pg (25.7-33.7); MCHC 33.4 g/dl (32.0-36.0); MEAN CELL VOLUME 84.6 fl (80-96); MEAN PLT VOLUME 8.5 fl (7.5-11.1); PLATELET COUNT 306 K/MM3 (134-434); RBC 4.91 M/mm3 (3.60-5.2); RDW 13.3 % (11.6-15.6); WHITE BLOOD COUNT 7.3 K/mm3 (4.0-10.0)
[2019-09-13 15:58] LABS: MAGNESIUM 2.4 mg/dL (1.8-2.4)
[2019-09-13 16:25] LABS: ALBUMIN 3.6 g/dl (3.4-5.0); BILIRUBIN,TOTAL 0.5 mg/dL (0.2-1); BLOOD UREA NITROGEN 7.1 mg/dL (7-18); CALCIUM 9.1 mg/dL (8.5-10.1); CREATININE 0.7 mg/dL (0.55-1.3); PHOSPHOROUS 3.5 mg/dL (2.5-4.9); POTASSIUM 4.7 mmol/L (3.5-5.1); TOT PROT 7.5 g/dl (6.4-8.2)
[2019-09-13 18:29] LABS: PH,URINE >= 9.0 (5.0-8.0); URINE APPEARANCE CLEAR; URINE BILIRUBIN NEGATIVE (NEGATIVE); URINE COLOR YELLOW; URINE GLUCOSE (UA) 1+ (NEGATIVE); URINE KETONE NEGATIVE (NEGATIVE); URINE LEUK ESTERASE NEGATIVE (NEGATIVE); URINE NITRITE NEGATIVE (NEGATIVE); URINE PROTEIN NEGATIVE (NEGATIVE); URINE UROBILINOGEN 0.2 mg/dL (0.2-1.0)
[2019-09-13 19:08] VITALS: BP 122/80; PULSE 86; TEMP 97.9
--- NOTE | 2019-09-14 15:14 | EKG ---
Test Reason : Blood Pressure : / mmHG Vent. Rate : 079 BPM Atrial Rate : 079 BPM P-R Int : 172 ms QRS Dur : 078 ms QT Int : 376 ms P-R-T Axes : 053 009 050 degrees QTc Int : 431 ms NORMAL SINUS RHYTHM POSSIBLE INFERIOR INFARCT , AGE UNDETERMINED CANNOT RULE OUT ANTERIOR INFARCT , AGE UNDETERMINED ABNORMAL ECG WHEN COMPARED WITH ECG OF 18-JAN-2019 01:09, BORDERLINE CRITERIA FOR INFERIOR INFARCT ARE NOW PRESENT Confirmed by MYLA LOVE MD ([id number]) on 09/14/2019 3:14:07 PM Referred By: Confirmed By:MYLA LOVE MD
--- NOTE | 2019-09-21 10:39 | PDOC ---
Documentation entered by Valarie Correa SCRIBE, acting as scribe for Claudia Mckenzie MD. Claudia Mckenzie MD: This documentation has been prepared by the Sunny duran Nirvannie, SCRIBE, under my direction and personally reviewed by me in its entirety. I confirm that the documentation accurately reflects all work, treatment, procedures, and medical decision making performed by me. Attending Attestation - Resident Resident Name: PaulinoEboni - ED Attending Attestation I have performed the following: I have examined & evaluated the patient, The case was reviewed & discussed with the resident, I agree w/resident's findings & plan, Exceptions are as noted - HPI HPI: 09/13/19 16:07 The patient is a 63 year old male, with a significant past medical history of HTN, HLD, DM, Migraines, Bipolar Disorder/Depression, IBS, osteoporosis ,fatty liver, Pancreatitis, MRSA, PVD, COPD/Asthma, who presents to the emergency department with 4 days of 8/10, intermittent, sharp, diffuse abdominal pain worse in the right upper quadrant with radiation to the right flank and back. He denies any recent dysuria, frequency, urgency or hematuria. Allergies: NKDA - Physicial Exam PE: 09/13/19 16:15 awake alert lungs clear bilat heart rrr on mrg abd soft mild lower quad ttp no rebound no guarding. no cva tenderness. skin warm and dry . 7 09/21/19 10:37 - Medical Decision Making 09/13/19 16:30 64 yo F with dm htn hld irritable bowel, here with c/o abd pain.. differential diverticulitis colitis, pancreatitis. plan ct ap labs give iv hyration. 09/21/19 10:38 ct with air distended colon otherwise unremarkalbe. post vasiliy. plan trial po dc home.
== END 2019-09-13 19:20 | disposition home or self-care (01) ==
LOC: JER 13:04
PROC: 3E033NZ Introduction of Analgesics, Hypnotics, Sedatives into Peripheral Vein, Percutaneous Approach (ICD-10-PCS; principal; 2019-09-13)
PROC: 3E033GC Introduction of Other Therapeutic Substance into Peripheral Vein, Percutaneous Approach (ICD-10-PCS; 2019-09-13)
DX: R11.2 Nausea with vomiting, unspecified (principal); I10 Essential (primary) hypertension; E78.5 Hyperlipidemia, unspecified; E11.9 Type 2 diabetes mellitus without complications; F31.9 Bipolar disorder, unspecified; G43.909 Migraine, unspecified, not intractable, without status migrainosus; K85.90 Acute pancreatitis without necrosis or infection, unspecified; Z86.14 Personal history of Methicillin resistant Staphylococcus aureus infection; J44.9 Chronic obstructive pulmonary disease, unspecified; K76.0 Fatty (change of) liver, not elsewhere classified
CPT/HCPCS: 36415; 74177-TC; 80053; 81003; 83690; 83735; 84100; 85025; 87086; 93005; 93010; 96365; 96375; 99285-25; J0131; J7030; Q9967

== ENCOUNTER 2020-07-19 22:30 | Inpatient (IN) | payer OTHER ==
[2020-07-19] MEDS ORDERED: LACTATED RINGERS SOLUTION 1,000 ML/1,000 ML INFUS.BAG IV STA (23:30)
[2020-07-20 00:27] LABS: BASO % 0.2 % (0-2.0); HEMATOCRIT 41.5 % (32.4-45.2); HEMOGLOBIN 13.4 GM/dL (10.7-15.3); LYMPH % 15.4 % (8-40); MCH 27.1 pg (25.7-33.7); MCHC 32.4 g/dl (32.0-36.0); MEAN CELL VOLUME 83.7 fl (80-96); MEAN PLT VOLUME 8.6 fl (7.5-11.1); MONO % 10.1 % (3.8-10.2); NEUT % 74.3 % (42.8-82.8); PLATELET COUNT 157 K/MM3 (134-434); RBC 4.95 M/mm3 (3.60-5.2); RDW 16.2 % (11.6-15.6); WHITE BLOOD COUNT 7.2 K/mm3 (4.0-10.0)
[2020-07-20 00:41] LABS: CHLORIDE 99 mmol/L (98-107); SODIUM 133 mmol/L (136-145)
[2020-07-20 00:43] LABS: CALCIUM 8.8 mg/dL (8.5-10.1)
[2020-07-20 00:44] LABS: ALBUMIN 3.3 g/dl (3.4-5.0); ANION GAP 7 MMOL/L (8-16); BLOOD UREA NITROGEN 10.5 mg/dL (7-18); CO2 27 mmol/L (21-32); GLUCOSE,RANDOM 162 mg/dL (74-106)
[2020-07-20 00:46] LABS: INR 0.98 (0.83-1.09); PROTHROMBIN TIME (PATIENT) 11.9 SEC (9.7-13.0)
[2020-07-20 00:47] LABS: CREATININE 0.7 mg/dL (0.55-1.3); SGOT/AST 59 U/L (15-37); SGPT/ALT 38 U/L (13-61)
[2020-07-20 00:49] LABS: ACTIVATED PTT 29.3 SECONDS (25.2-36.5); BILIRUBIN,TOTAL 0.4 mg/dL (0.2-1)
[2020-07-20 00:50] LABS: ALK PHOS 72 U/L (45-117)
[2020-07-20 00:53] LABS: BILIRUBIN,DIRECT 0.2 mg/dL (0.0-0.2)
[2020-07-20 01:57] LABS: LDH 363 U/L (84-246)
[2020-07-20] MEDS ORDERED: CEFTRIAXONE 1 GM in DEXTROSE 5%-WATER - 50 ML IVPB ONE (05:38)
[2020-07-20] MEDS ORDERED: ACETAMINOPHEN 1000 MG/100 ML BAG IVPB ONE (05:39)
[2020-07-20] MEDS ORDERED: METOCLOPRAMIDE HCL INJECTION 10 MG/2 ML VIAL IVPB ONE (05:39)
[2020-07-20] MEDS ORDERED: ACETAMINOPHEN INJECTION 100 ML IVPB ONE (05:41)
[2020-07-20] MEDS ORDERED: METOCLOPRAMIDE HCL INJECTION 10 MG/2 ML VIAL ONE (05:41)
[2020-07-20] MEDS ORDERED: AZITHROMYCIN IVPB 500 MG/250 ML BAG IVPB ONE ×2 (06:15→06:33)
[2020-07-20] MEDS ORDERED: CEFTRIAXONE 1 GM/50 ML BAG ONE (06:33)
[2020-07-20 08:07] LABS: URINE APPEARANCE CLEAR; URINE BILIRUBIN NEGATIVE (NEGATIVE); URINE COLOR YELLOW; URINE GLUCOSE (UA) 2+ (NEGATIVE); URINE KETONE NEGATIVE (NEGATIVE); URINE LEUK ESTERASE NEGATIVE (NEGATIVE); URINE NITRITE NEGATIVE (NEGATIVE); URINE PROTEIN NEGATIVE (NEGATIVE)
[2020-07-20] MEDS ORDERED: ZINC SULFATE 220 MG CAPSULE (FP) ONE (09:23)
[2020-07-20] MEDS ORDERED: ASCORBIC ACID 500 MG TABLET (FP) ONE (09:23)
[2020-07-20] MEDS ORDERED: ENOXAPARIN NA (PORCINE) 40 MG/0.4 ML DISP.SYRIN SQ ONE (09:24)
[2020-07-20] MEDS ORDERED: CHOLECALCIFEROL (VIT D3) 1,000 UNIT (25 MCG) TABLET ONE (09:24)
[2020-07-20] MEDS ORDERED: CALCIUM (OYSTER SHELL) 500 MG TABLET (FP) PO SCH (10:00)
[2020-07-20] MEDS ORDERED: lamoTRIgine 100 MG TABLET ONE (10:39)
[2020-07-20] MEDS: ZINC SULFATE 220 MG CAPSULE (FP) PO SCH (10:40)
[2020-07-20] MEDS: CHOLECALCIFEROL (VIT D3) 1,000 UNIT (25 MCG) TABLET PO SCH (10:40)
[2020-07-20] MEDS: ENOXAPARIN NA (PORCINE) 40 MG/0.4 ML DISP.SYRIN SQ SCH (10:40)
[2020-07-20] MEDS: lamoTRIgine 100 MG TABLET PO SCH (10:40)
[2020-07-20] MEDS: ASCORBIC ACID 500 MG TABLET (FP) PO SCH (10:40)
[2020-07-20] MEDS: INSULIN SLIDING SCALE (NOVOLOG) 1 VIAL SQ SCH ×3 (12:29→21:25)
[2020-07-20 12:47] VITALS: BMI 25.2
[2020-07-20] MEDS ORDERED: PT OWN MED DRAWER 7, Y5N ONE (12:52)
[2020-07-20] MEDS: BUDESONIDE/FORMETEROL FUMARATE 160/4.5 mcg INHALER IH SCH ×2 (13:09→21:25)
[2020-07-20] MEDS: GABAPENTIN 300 MG CAPSULE PO SCH ×2 (13:10→21:18)
[2020-07-20] MEDS: ACETAMINOPHEN 325 MG TABLET (FP) PO PRN ×2 (13:10→17:29)
[2020-07-20] MEDS ORDERED: traMADol HCL 50 MG TABLET PO ONE (17:40)
[2020-07-20] MEDS: guaiFENesin 200 MG/10 ML 10 ML UNIT-DOSE CUPS PO PRN (17:49)
[2020-07-20] MEDS: DEXAMETHASONE SOD PHOSPHATE 4 MG/1 ML VIAL IVPUSH SCH (17:50)
[2020-07-20] MEDS: traZODone HCL 100 MG TABLET (FP) PO SCH (21:19)
[2020-07-20] MEDS: ATORVASTATIN CA 20 MG TABLET (FP) PO SCH (21:19)
[2020-07-21] MEDS: ACETAMINOPHEN 325 MG TABLET (FP) PO PRN ×3 (04:22→21:42)
[2020-07-21] MEDS: INSULIN SLIDING SCALE (NOVOLOG) 1 VIAL SQ SCH ×4 (06:17→21:41)
[2020-07-21] MEDS: GABAPENTIN 300 MG CAPSULE PO SCH ×3 (06:27→21:41)
[2020-07-21 07:24] LABS: BASO % 0.2 % (0-2.0); HEMOGLOBIN 12.9 GM/dL (10.7-15.3); LYMPH % 27.4 % (8-40); MCH 27.3 pg (25.7-33.7); MEAN CELL VOLUME 82.6 fl (80-96); MEAN PLT VOLUME 8.4 fl (7.5-11.1); MONO % 19.2 % (3.8-10.2); NEUT % 53.2 % (42.8-82.8); PLATELET COUNT 186 K/MM3 (134-434); RBC 4.72 M/mm3 (3.60-5.2); WHITE BLOOD COUNT 4.2 K/mm3 (4.0-10.0)
[2020-07-21 07:33] LABS: ALBUMIN 2.8 g/dl (3.4-5.0); BLOOD UREA NITROGEN 9.6 mg/dL (7-18); CALCIUM 8.7 mg/dL (8.5-10.1); MAGNESIUM 2.5 mg/dL (1.8-2.4)
[2020-07-21 07:37] LABS: CREATININE 0.5 mg/dL (0.55-1.3)
[2020-07-21 07:38] LABS: BILIRUBIN,TOTAL 0.5 mg/dL (0.2-1); TOT PROT 6.6 g/dl (6.4-8.2)
[2020-07-21] MEDS ORDERED: cefTRIAXone SODIUM 1 GM VIAL ONE (10:00)
[2020-07-21] MEDS ORDERED: AZITHROMYCIN IVPB 500 MG/250 ML BAG IVPB SCH (10:00)
[2020-07-21] MEDS ORDERED: DEXTROSE 5%-WATER - 50 ML IVPB ONE (10:00)
[2020-07-21] MEDS ORDERED: CEFTRIAXONE 1 GM in DEXTROSE 5%-WATER - 50 ML IVPB SCH (10:00)
[2020-07-21] MEDS: ASCORBIC ACID 500 MG TABLET (FP) PO SCH (10:05)
[2020-07-21] MEDS: CHOLECALCIFEROL (VIT D3) 1,000 UNIT (25 MCG) TABLET PO SCH (10:06)
[2020-07-21] MEDS: ENOXAPARIN NA (PORCINE) 40 MG/0.4 ML DISP.SYRIN SQ SCH (10:06)
[2020-07-21] MEDS: DEXAMETHASONE SOD PHOSPHATE 4 MG/1 ML VIAL IVPUSH SCH (10:06)
[2020-07-21] MEDS: BUDESONIDE/FORMETEROL FUMARATE 160/4.5 mcg INHALER IH SCH ×2 (10:06→21:41)
[2020-07-21] MEDS: ZINC SULFATE 220 MG CAPSULE (FP) PO SCH (10:06)
[2020-07-21] MEDS: lamoTRIgine 100 MG TABLET PO SCH (10:06)
[2020-07-21] MEDS: guaiFENesin 200 MG/10 ML 10 ML UNIT-DOSE CUPS PO PRN ×2 (13:50→21:42)
[2020-07-21] MEDS: traZODone HCL 100 MG TABLET (FP) PO SCH (21:41)
[2020-07-21] MEDS: ATORVASTATIN CA 20 MG TABLET (FP) PO SCH (21:41)
[2020-07-22] MEDS: ACETAMINOPHEN 325 MG TABLET (FP) PO PRN ×4 (03:27→22:00)
[2020-07-22] MEDS: GABAPENTIN 300 MG CAPSULE PO SCH ×3 (05:38→21:54)
[2020-07-22] MEDS: INSULIN SLIDING SCALE (NOVOLOG) 1 VIAL SQ SCH ×4 (07:45→22:01)
[2020-07-22] MEDS: CHOLECALCIFEROL (VIT D3) 1,000 UNIT (25 MCG) TABLET PO SCH (09:53)
[2020-07-22] MEDS: ZINC SULFATE 220 MG CAPSULE (FP) PO SCH (09:53)
[2020-07-22] MEDS: ASCORBIC ACID 500 MG TABLET (FP) PO SCH (09:53)
[2020-07-22] MEDS: APIXABAN 5 MG TABLET PO SCH ×2 (09:53→21:54)
[2020-07-22] MEDS: DEXAMETHASONE SOD PHOSPHATE 4 MG/1 ML VIAL IVPUSH SCH (09:53)
[2020-07-22] MEDS: BUDESONIDE/FORMETEROL FUMARATE 160/4.5 mcg INHALER IH SCH ×2 (09:54→22:01)
[2020-07-22] MEDS: lamoTRIgine 100 MG TABLET PO SCH (09:54)
[2020-07-22 10:33] LABS: BASO % 0.3 % (0-2.0); HEMATOCRIT 39.6 % (32.4-45.2); LYMPH % 15.4 % (8-40); MCH 27.1 pg (25.7-33.7); MCHC 32.8 g/dl (32.0-36.0); MEAN CELL VOLUME 82.6 fl (80-96); MEAN PLT VOLUME 7.9 fl (7.5-11.1); NEUT % 73.3 % (42.8-82.8); PLATELET COUNT 217 K/MM3 (134-434); RDW 15.8 % (11.6-15.6); WHITE BLOOD COUNT 8.3 K/mm3 (4.0-10.0)
[2020-07-22 11:00] LABS: CALCIUM 8.6 mg/dL (8.5-10.1); MAGNESIUM 2.1 mg/dL (1.8-2.4)
[2020-07-22 11:01] LABS: BLOOD UREA NITROGEN 9.3 mg/dL (7-18)
[2020-07-22 11:04] LABS: CREATININE 0.6 mg/dL (0.55-1.3)
[2020-07-22] MEDS ORDERED: VENLAFAXINE HCL 150 MG E.R. CAPSULE PO SCH (11:15)
[2020-07-22 11:45] LABS: ERYTHROCYTE SEDIMENTATION RATE 74 mm/hr (0-30)
[2020-07-22] MEDS: traMADol HCL 50 MG TABLET PO PRN (12:09)
[2020-07-22] MEDS ORDERED: PT OWN MED DRAWER 7, Y5N ONE (12:25)
[2020-07-22] MEDS ORDERED: REMDESIVIR 200 MG in SODIUM CHLORIDE 210 ML IVPB ONE (16:00)
[2020-07-22] MEDS: guaiFENesin 200 MG/10 ML 10 ML UNIT-DOSE CUPS PO PRN (21:54)
[2020-07-22] MEDS: ATORVASTATIN CA 20 MG TABLET (FP) PO SCH (21:54)
[2020-07-22] MEDS: traZODone HCL 100 MG TABLET (FP) PO SCH (21:54)
[2020-07-22] MEDS: VENLAFAXINE HCL 75 MG E.R. CAPSULES PO SCH (22:01)
[2020-07-23] MEDS: traMADol HCL 50 MG TABLET PO PRN ×2 (03:25→11:16)
[2020-07-23] MEDS ORDERED: PT OWN MED DRAWER 7, Y5N ONE ×3 (05:55→21:37)
[2020-07-23] MEDS: GABAPENTIN 300 MG CAPSULE PO SCH ×3 (06:28→21:41)
[2020-07-23] MEDS: ACETAMINOPHEN 325 MG TABLET (FP) PO PRN ×2 (06:34→11:17)
[2020-07-23 07:13] LABS: BASO % 0.6 % (0-2.0); HEMATOCRIT 40.6 % (32.4-45.2); HEMOGLOBIN 13.2 GM/dL (10.7-15.3); MCH 27.3 pg (25.7-33.7); MCHC 32.6 g/dl (32.0-36.0); MEAN CELL VOLUME 83.7 fl (80-96); MEAN PLT VOLUME 8.2 fl (7.5-11.1); MONO % 10.9 % (3.8-10.2); NEUT % 68.5 % (42.8-82.8); PLATELET COUNT 223 K/MM3 (134-434); RBC 4.85 M/mm3 (3.60-5.2); RDW 15.7 % (11.6-15.6); WHITE BLOOD COUNT 9.2 K/mm3 (4.0-10.0)
[2020-07-23 07:29] LABS: CREATININE 0.5 mg/dL (0.55-1.3)
[2020-07-23 07:31] LABS: ALBUMIN 2.8 g/dl (3.4-5.0); TOT PROT 6.9 g/dl (6.4-8.2)
[2020-07-23 07:34] LABS: BLOOD UREA NITROGEN 9.8 mg/dL (7-18); CALCIUM 8.6 mg/dL (8.5-10.1); MAGNESIUM 2.1 mg/dL (1.8-2.4)
[2020-07-23 07:47] LABS: BILIRUBIN,TOTAL 0.4 mg/dL (0.2-1)
[2020-07-23] MEDS ORDERED: INSULIN SLIDING SCALE (NOVOLOG) 1 VIAL SQ ONE (07:48)
[2020-07-23] MEDS: INSULIN SLIDING SCALE (NOVOLOG) 1 VIAL SQ SCH ×4 (07:59→21:41)
[2020-07-23] MEDS: DEXAMETHASONE SOD PHOSPHATE 4 MG/1 ML VIAL IVPUSH SCH (10:04)
[2020-07-23] MEDS: CHOLECALCIFEROL (VIT D3) 1,000 UNIT (25 MCG) TABLET PO SCH (10:05)
[2020-07-23] MEDS: ASCORBIC ACID 500 MG TABLET (FP) PO SCH (10:05)
[2020-07-23] MEDS: ZINC SULFATE 220 MG CAPSULE (FP) PO SCH (10:05)
[2020-07-23] MEDS: BUDESONIDE/FORMETEROL FUMARATE 160/4.5 mcg INHALER IH SCH ×2 (10:05→21:44)
[2020-07-23] MEDS: APIXABAN 5 MG TABLET PO SCH ×2 (10:05→21:42)
[2020-07-23] MEDS: lamoTRIgine 100 MG TABLET PO SCH (10:05)
[2020-07-23] MEDS: VENLAFAXINE HCL 75 MG E.R. CAPSULES PO SCH ×2 (10:14→21:42)
[2020-07-23] MEDS: ALBUTEROL SO4 HFA INHALER IH PRN ×2 (11:43→21:44)
[2020-07-23] MEDS: REMDESIVIR 100 MG in SODIUM CHLORIDE 230 ML IVPB SCH (16:56)
[2020-07-23] MEDS ORDERED: ALBUTEROL SO4 0.083% IH SOL 2.5 MG/3 ML VIAL.NEB. NEB PRN (18:09)
[2020-07-23] MEDS: ATORVASTATIN CA 40 MG TABLET (FP) PO SCH (21:42)
[2020-07-24] MEDS: ALBUTEROL SO4 HFA INHALER IH PRN ×2 (03:00→18:37)
[2020-07-24] MEDS ORDERED: ONDANSETRON 4 MG/2 ML VIAL IVPUSH ONE (03:14)
[2020-07-24] MEDS: guaiFENesin 200 MG/10 ML 10 ML UNIT-DOSE CUPS PO PRN ×2 (06:30→16:06)
[2020-07-24] MEDS: GABAPENTIN 300 MG CAPSULE PO SCH ×3 (06:30→21:25)
[2020-07-24] MEDS: traMADol HCL 50 MG TABLET PO PRN ×2 (06:40→16:07)
[2020-07-24] MEDS: INSULIN SLIDING SCALE (NOVOLOG) 1 VIAL SQ SCH ×4 (06:41→21:31)
[2020-07-24 08:06] LABS: HEMATOCRIT 38.5 % (32.4-45.2); HEMOGLOBIN 12.5 GM/dL (10.7-15.3); MCH 27.1 pg (25.7-33.7); MCHC 32.6 g/dl (32.0-36.0); MEAN CELL VOLUME 83.1 fl (80-96); MEAN PLT VOLUME 8.1 fl (7.5-11.1); PLATELET COUNT 264 K/MM3 (134-434); RBC 4.63 M/mm3 (3.60-5.2); RDW 15.4 % (11.6-15.6); WHITE BLOOD COUNT 10.4 K/mm3 (4.0-10.0)
[2020-07-24 08:26] LABS: ALBUMIN 2.5 g/dl (3.4-5.0); BLOOD UREA NITROGEN 11.7 mg/dL (7-18)
[2020-07-24 08:27] LABS: CALCIUM 8.3 mg/dL (8.5-10.1)
[2020-07-24 08:29] LABS: CREATININE 0.5 mg/dL (0.55-1.3)
[2020-07-24 08:30] LABS: PHOSPHOROUS 3.1 mg/dL (2.5-4.9)
[2020-07-24 08:31] LABS: BILIRUBIN,TOTAL 0.5 mg/dL (0.2-1); TOT PROT 6.4 g/dl (6.4-8.2)
[2020-07-24] MEDS: DEXAMETHASONE SOD PHOSPHATE 4 MG/1 ML VIAL IVPUSH SCH (10:03)
[2020-07-24] MEDS: CHOLECALCIFEROL (VIT D3) 1,000 UNIT (25 MCG) TABLET PO SCH (10:04)
[2020-07-24] MEDS: lamoTRIgine 100 MG TABLET PO SCH (10:04)
[2020-07-24] MEDS: VENLAFAXINE HCL 75 MG E.R. CAPSULES PO SCH ×2 (10:04→21:25)
[2020-07-24] MEDS: ASCORBIC ACID 500 MG TABLET (FP) PO SCH (10:04)
[2020-07-24] MEDS: BUDESONIDE/FORMETEROL FUMARATE 160/4.5 mcg INHALER IH SCH ×2 (10:04→21:00)
[2020-07-24] MEDS: ZINC SULFATE 220 MG CAPSULE (FP) PO SCH (10:04)
[2020-07-24] MEDS: APIXABAN 5 MG TABLET PO SCH ×2 (10:04→21:25)
[2020-07-24] MEDS: PANTOPRAZOLE 40 MG TABLET PO SCH (10:22)
[2020-07-24] MEDS: ACETAMINOPHEN 325 MG TABLET (FP) PO PRN (10:22)
[2020-07-24] MEDS: REMDESIVIR 100 MG in SODIUM CHLORIDE 230 ML IVPB SCH (16:05)
[2020-07-24] MEDS ORDERED: DOCUSATE SODIUM 100 MG CAPSULE (FP) PO PRN (16:49)
[2020-07-24] MEDS ORDERED: DEXAMETHASONE SOD PHOSPHATE 4 MG/1 ML VIAL IVPUSH ONE (17:00)
[2020-07-24] MEDS ORDERED: PT OWN MED DRAWER 7, Y5N ONE (21:19)
[2020-07-24] MEDS: ATORVASTATIN CA 40 MG TABLET (FP) PO SCH (21:24)
[2020-07-24] MEDS: traZODone HCL 100 MG TABLET (FP) PO SCH (21:25)
[2020-07-25] MEDS: INSULIN SLIDING SCALE (NOVOLOG) 1 VIAL SQ SCH ×4 (06:57→21:48)
[2020-07-25] MEDS: GABAPENTIN 300 MG CAPSULE PO SCH ×3 (06:57→21:33)
[2020-07-25] MEDS: ALBUTEROL SO4 HFA INHALER IH PRN (07:30)
[2020-07-25 07:52] LABS: HEMATOCRIT 41.4 % (32.4-45.2); HEMOGLOBIN 13.8 GM/dL (10.7-15.3); MCH 27.3 pg (25.7-33.7); MCHC 33.3 g/dl (32.0-36.0); MEAN CELL VOLUME 82.1 fl (80-96); PLATELET COUNT 353 K/MM3 (134-434); RBC 5.04 M/mm3 (3.60-5.2); RDW 15.7 % (11.6-15.6); WHITE BLOOD COUNT 9.3 K/mm3 (4.0-10.0)
[2020-07-25 08:03] LABS: CALCIUM 8.8 mg/dL (8.5-10.1)
[2020-07-25 08:04] LABS: ALBUMIN 2.5 g/dl (3.4-5.0); BLOOD UREA NITROGEN 15.1 mg/dL (7-18); MAGNESIUM 2.3 mg/dL (1.8-2.4)
[2020-07-25 08:07] LABS: CREATININE 0.6 mg/dL (0.55-1.3); PHOSPHOROUS 4.2 mg/dL (2.5-4.9)
[2020-07-25 08:08] LABS: BILIRUBIN,TOTAL 0.7 mg/dL (0.2-1); TOT PROT 7.3 g/dl (6.4-8.2)
[2020-07-25] MEDS ORDERED: PT OWN MED DRAWER 7, Y5N ONE ×2 (09:17→21:05)
[2020-07-25 09:39] LABS: ERYTHROCYTE SEDIMENTATION RATE 73 mm/hr (0-30)
[2020-07-25] MEDS: PANTOPRAZOLE 40 MG TABLET PO SCH (09:39)
[2020-07-25] MEDS: ZINC SULFATE 220 MG CAPSULE (FP) PO SCH (09:39)
[2020-07-25] MEDS: VENLAFAXINE HCL 75 MG E.R. CAPSULES PO SCH ×2 (09:39→21:33)
[2020-07-25] MEDS: APIXABAN 5 MG TABLET PO SCH ×2 (09:39→21:33)
[2020-07-25] MEDS: lamoTRIgine 100 MG TABLET PO SCH (09:40)
[2020-07-25] MEDS: DEXAMETHASONE SOD PHOSPHATE 4 MG/1 ML VIAL IVPUSH SCH (09:41)
[2020-07-25] MEDS: CHOLECALCIFEROL (VIT D3) 1,000 UNIT (25 MCG) TABLET PO SCH (09:43)
[2020-07-25] MEDS: ASCORBIC ACID 500 MG TABLET (FP) PO SCH (11:11)
[2020-07-25] MEDS: BUDESONIDE/FORMETEROL FUMARATE 160/4.5 mcg INHALER IH SCH ×2 (11:11→21:48)
[2020-07-25] MEDS: traMADol HCL 50 MG TABLET PO PRN (11:31)
[2020-07-25] MEDS ORDERED: DEXAMETHASONE SOD PHOSPHATE 4 MG/1 ML VIAL IVPUSH ONE (16:43)
[2020-07-25] MEDS: REMDESIVIR 100 MG in SODIUM CHLORIDE 230 ML IVPB SCH (17:15)
[2020-07-25] MEDS: ACETAMINOPHEN 325 MG TABLET (FP) PO PRN (21:33)
[2020-07-25] MEDS: traZODone HCL 100 MG TABLET (FP) PO SCH (21:33)
[2020-07-25] MEDS: ATORVASTATIN CA 40 MG TABLET (FP) PO SCH (21:33)
[2020-07-26] MEDS: ACETAMINOPHEN 325 MG TABLET (FP) PO PRN ×3 (03:54→21:23)
[2020-07-26] MEDS: GABAPENTIN 300 MG CAPSULE PO SCH ×3 (05:58→21:22)
[2020-07-26] MEDS: INSULIN SLIDING SCALE (NOVOLOG) 1 VIAL SQ SCH ×4 (06:03→21:30)
[2020-07-26 09:06] LABS: HEMATOCRIT 39.8 % (32.4-45.2); HEMOGLOBIN 12.9 GM/dL (10.7-15.3); MCHC 32.5 g/dl (32.0-36.0); MEAN PLT VOLUME 7.9 fl (7.5-11.1); PLATELET COUNT 353 K/MM3 (134-434); RBC 4.79 M/mm3 (3.60-5.2); RDW 15.4 % (11.6-15.6); WHITE BLOOD COUNT 10.1 K/mm3 (4.0-10.0)
[2020-07-26 09:27] LABS: ALBUMIN 2.3 g/dl (3.4-5.0)
[2020-07-26 09:28] LABS: CALCIUM 8.1 mg/dL (8.5-10.1); MAGNESIUM 2.4 mg/dL (1.8-2.4)
[2020-07-26 09:30] LABS: CREATININE 0.6 mg/dL (0.55-1.3)
[2020-07-26 09:32] LABS: BILIRUBIN,TOTAL 0.5 mg/dL (0.2-1); TOT PROT 6.5 g/dl (6.4-8.2)
[2020-07-26] MEDS: APIXABAN 5 MG TABLET PO SCH ×2 (09:36→21:22)
[2020-07-26] MEDS: CHOLECALCIFEROL (VIT D3) 1,000 UNIT (25 MCG) TABLET PO SCH (09:36)
[2020-07-26] MEDS: ASCORBIC ACID 500 MG TABLET (FP) PO SCH (09:36)
[2020-07-26] MEDS: lamoTRIgine 100 MG TABLET PO SCH (09:36)
[2020-07-26] MEDS: PANTOPRAZOLE 40 MG TABLET PO SCH (09:36)
[2020-07-26] MEDS: ZINC SULFATE 220 MG CAPSULE (FP) PO SCH (09:36)
[2020-07-26] MEDS: DEXAMETHASONE SOD PHOSPHATE 4 MG/1 ML VIAL IVPUSH SCH (09:37)
[2020-07-26] MEDS: VENLAFAXINE HCL 75 MG E.R. CAPSULES PO SCH ×2 (09:37→21:22)
[2020-07-26] MEDS: BUDESONIDE/FORMETEROL FUMARATE 160/4.5 mcg INHALER IH SCH ×2 (09:37→21:23)
[2020-07-26] MEDS: traMADol HCL 50 MG TABLET PO PRN ×2 (09:53→17:55)
[2020-07-26 12:43] LABS: ERYTHROCYTE SEDIMENTATION RATE 74 mm/hr (0-30)
[2020-07-26] MEDS: BENZOCAINE/MENTH/CETYLPYRD CL 1 EACH LOZENGE MM PRN ×2 (12:47→21:23)
[2020-07-26] MEDS: REMDESIVIR 100 MG in SODIUM CHLORIDE 230 ML IVPB SCH (16:13)
[2020-07-26] MEDS: traZODone HCL 100 MG TABLET (FP) PO SCH (21:22)
[2020-07-26] MEDS: ATORVASTATIN CA 40 MG TABLET (FP) PO SCH (21:22)
[2020-07-26] MEDS: ALBUTEROL SO4 HFA INHALER IH PRN (21:23)
[2020-07-26] MEDS: guaiFENesin 200 MG/10 ML 10 ML UNIT-DOSE CUPS PO PRN (21:30)
[2020-07-27] MEDS: traMADol HCL 50 MG TABLET PO PRN ×3 (03:30→22:30)
[2020-07-27] MEDS: ALBUTEROL SO4 HFA INHALER IH PRN (03:30)
[2020-07-27] MEDS: GABAPENTIN 300 MG CAPSULE PO SCH ×3 (06:12→21:26)
[2020-07-27] MEDS: INSULIN SLIDING SCALE (NOVOLOG) 1 VIAL SQ SCH ×4 (06:16→21:34)
[2020-07-27 06:43] LABS: HEMATOCRIT 39.9 % (32.4-45.2); HEMOGLOBIN 13.5 GM/dL (10.7-15.3); MCH 27.6 pg (25.7-33.7); MCHC 33.7 g/dl (32.0-36.0); MEAN CELL VOLUME 81.8 fl (80-96); MEAN PLT VOLUME 7.6 fl (7.5-11.1); PLATELET COUNT 307 K/MM3 (134-434); RBC 4.88 M/mm3 (3.60-5.2); RDW 15.4 % (11.6-15.6); WHITE BLOOD COUNT 11.7 K/mm3 (4.0-10.0)
[2020-07-27 06:58] LABS: ALBUMIN 2.4 g/dl (3.4-5.0); BLOOD UREA NITROGEN 14.3 mg/dL (7-18); MAGNESIUM 1.8 mg/dL (1.8-2.4)
[2020-07-27 07:00] LABS: CREATININE 0.5 mg/dL (0.55-1.3); PHOSPHOROUS 1.5 mg/dL (2.5-4.9)
[2020-07-27 07:02] LABS: BILIRUBIN,TOTAL 0.6 mg/dL (0.2-1); TOT PROT 6.7 g/dl (6.4-8.2)
[2020-07-27] MEDS: DEXAMETHASONE SOD PHOSPHATE 4 MG/1 ML VIAL IVPUSH SCH (09:01)
[2020-07-27] MEDS: ASCORBIC ACID 500 MG TABLET (FP) PO SCH (09:03)
[2020-07-27] MEDS: ZINC SULFATE 220 MG CAPSULE (FP) PO SCH (09:03)
[2020-07-27] MEDS: CHOLECALCIFEROL (VIT D3) 1,000 UNIT (25 MCG) TABLET PO SCH (09:03)
[2020-07-27] MEDS: PANTOPRAZOLE 40 MG TABLET PO SCH (09:05)
[2020-07-27] MEDS: BUDESONIDE/FORMETEROL FUMARATE 160/4.5 mcg INHALER IH SCH ×2 (09:05→21:27)
[2020-07-27] MEDS: lamoTRIgine 100 MG TABLET PO SCH (09:05)
[2020-07-27] MEDS: APIXABAN 5 MG TABLET PO SCH ×2 (09:05→21:27)
[2020-07-27] MEDS: VENLAFAXINE HCL 75 MG E.R. CAPSULES PO SCH ×2 (10:02→21:26)
[2020-07-27] MEDS: guaiFENesin 200 MG/10 ML 10 ML UNIT-DOSE CUPS PO PRN (14:04)
[2020-07-27] MEDS ORDERED: DEXAMETHASONE SOD PHOSPHATE 4 MG/1 ML VIAL IVPUSH ONE (17:16)
[2020-07-27] MEDS ORDERED: cefTRIAXone SODIUM 1 GM VIAL ONE (17:42)
[2020-07-27] MEDS ORDERED: DEXTROSE 5%-WATER - 50 ML IVPB ONE (17:42)
[2020-07-27] MEDS: CEFTRIAXONE 1 GM in DEXTROSE 5%-WATER - 50 ML IVPB SCH (17:54)
[2020-07-27] MEDS ORDERED: PT OWN MED DRAWER 7, Y5N ONE (20:58)
[2020-07-27] MEDS: traZODone HCL 100 MG TABLET (FP) PO SCH (21:26)
[2020-07-27] MEDS: ATORVASTATIN CA 40 MG TABLET (FP) PO SCH (21:27)
[2020-07-28] MEDS: ACETAMINOPHEN 325 MG TABLET (FP) PO PRN (03:01)
[2020-07-28] MEDS: ALBUTEROL SO4 HFA INHALER IH PRN (03:02)
[2020-07-28] MEDS: GABAPENTIN 300 MG CAPSULE PO SCH ×3 (05:32→22:44)
[2020-07-28] MEDS: INSULIN SLIDING SCALE (NOVOLOG) 1 VIAL SQ SCH ×4 (06:38→22:52)
[2020-07-28 08:41] LABS: BASO % 0.2 % (0-2.0); HEMATOCRIT 38.6 % (32.4-45.2); LYMPH % 6.8 % (8-40); MCH 27.2 pg (25.7-33.7); MCHC 33.7 g/dl (32.0-36.0); MEAN CELL VOLUME 80.8 fl (80-96); MEAN PLT VOLUME 7.7 fl (7.5-11.1); MONO % 3.9 % (3.8-10.2); NEUT % 89.1 % (42.8-82.8); PLATELET COUNT 275 K/MM3 (134-434); RBC 4.78 M/mm3 (3.60-5.2); RDW 15.5 % (11.6-15.6)
[2020-07-28 08:44] LABS: ALBUMIN 2.2 g/dl (3.4-5.0); CALCIUM 8.2 mg/dL (8.5-10.1)
[2020-07-28 08:46] LABS: BLOOD UREA NITROGEN 17.1 mg/dL (7-18)
[2020-07-28 08:48] LABS: CREATININE 0.3 mg/dL (0.55-1.3)
[2020-07-28 08:50] LABS: BILIRUBIN,TOTAL 0.9 mg/dL (0.2-1); TOT PROT 6.5 g/dl (6.4-8.2)
[2020-07-28] MEDS ORDERED: DEXTROSE 5%-WATER - 50 ML IVPB ONE (09:20)
[2020-07-28] MEDS ORDERED: cefTRIAXone SODIUM 1 GM VIAL ONE (09:20)
[2020-07-28] MEDS: DEXAMETHASONE SOD PHOSPHATE 4 MG/1 ML VIAL IVPUSH SCH (09:26)
[2020-07-28] MEDS: PANTOPRAZOLE 40 MG TABLET PO SCH (09:28)
[2020-07-28] MEDS: ASCORBIC ACID 500 MG TABLET (FP) PO SCH ×2 (09:29→22:43)
[2020-07-28] MEDS: CHOLECALCIFEROL (VIT D3) 1,000 UNIT (25 MCG) TABLET PO SCH (09:29)
[2020-07-28] MEDS: CEFTRIAXONE 1 GM in DEXTROSE 5%-WATER - 50 ML IVPB SCH (09:29)
[2020-07-28] MEDS: APIXABAN 5 MG TABLET PO SCH ×2 (09:30→22:43)
[2020-07-28] MEDS: lamoTRIgine 100 MG TABLET PO SCH (09:30)
[2020-07-28] MEDS: ZINC SULFATE 220 MG CAPSULE (FP) PO SCH (09:30)
[2020-07-28] MEDS: VENLAFAXINE HCL 75 MG E.R. CAPSULES PO SCH ×2 (09:30→22:44)
[2020-07-28] MEDS: BUDESONIDE/FORMETEROL FUMARATE 160/4.5 mcg INHALER IH SCH ×2 (09:31→22:45)
[2020-07-28 10:20] LABS: ERYTHROCYTE SEDIMENTATION RATE 78 mm/hr (0-30)
[2020-07-28] MEDS: traMADol HCL 50 MG TABLET PO PRN ×2 (13:38→22:44)
[2020-07-28] MEDS: ATORVASTATIN CA 40 MG TABLET (FP) PO SCH (22:43)
[2020-07-28] MEDS: traZODone HCL 100 MG TABLET (FP) PO SCH (22:43)
[2020-07-29] MEDS: GABAPENTIN 300 MG CAPSULE PO SCH ×3 (06:18→21:39)
[2020-07-29 06:34] LABS: BASO % 0.4 % (0-2.0); HEMATOCRIT 40.2 % (32.4-45.2); HEMOGLOBIN 13.4 GM/dL (10.7-15.3); LYMPH % 5.2 % (8-40); MCH 27.1 pg (25.7-33.7); MCHC 33.3 g/dl (32.0-36.0); MEAN CELL VOLUME 81.5 fl (80-96); MEAN PLT VOLUME 7.6 fl (7.5-11.1); MONO % 4.7 % (3.8-10.2); NEUT % 89.7 % (42.8-82.8); PLATELET COUNT 265 K/MM3 (134-434); RBC 4.93 M/mm3 (3.60-5.2); RDW 15.2 % (11.6-15.6); WHITE BLOOD COUNT 13.8 K/mm3 (4.0-10.0)
[2020-07-29 06:53] LABS: ALBUMIN 2.2 g/dl (3.4-5.0); BLOOD UREA NITROGEN 20.7 mg/dL (7-18); CALCIUM 8.3 mg/dL (8.5-10.1); MAGNESIUM 2.1 mg/dL (1.8-2.4)
[2020-07-29 06:57] LABS: BILIRUBIN,TOTAL 0.7 mg/dL (0.2-1); CREATININE 0.4 mg/dL (0.55-1.3); PHOSPHOROUS 3.4 mg/dL (2.5-4.9); TOT PROT 6.7 g/dl (6.4-8.2)
[2020-07-29] MEDS: INSULIN SLIDING SCALE (NOVOLOG) 1 VIAL SQ SCH ×4 (07:29→21:42)
[2020-07-29] MEDS ORDERED: cefTRIAXone SODIUM 1 GM VIAL ONE (09:36)
[2020-07-29] MEDS ORDERED: DEXTROSE 5%-WATER - 50 ML IVPB ONE (09:36)
[2020-07-29] MEDS ORDERED: PT OWN MED DRAWER 7, Y5N ONE ×2 (09:36→21:30)
[2020-07-29] MEDS: ZINC SULFATE 220 MG CAPSULE (FP) PO SCH (09:51)
[2020-07-29] MEDS: ASCORBIC ACID 500 MG TABLET (FP) PO SCH ×2 (09:51→21:39)
[2020-07-29] MEDS: APIXABAN 5 MG TABLET PO SCH ×2 (09:51→21:40)
[2020-07-29] MEDS: DEXAMETHASONE SOD PHOSPHATE 4 MG/1 ML VIAL IVPUSH SCH (09:52)
[2020-07-29] MEDS: PANTOPRAZOLE 40 MG TABLET PO SCH (09:52)
[2020-07-29] MEDS: lamoTRIgine 100 MG TABLET PO SCH (09:52)
[2020-07-29] MEDS: CHOLECALCIFEROL (VIT D3) 1,000 UNIT (25 MCG) TABLET PO SCH (09:52)
[2020-07-29] MEDS: VENLAFAXINE HCL 75 MG E.R. CAPSULES PO SCH ×2 (09:53→21:40)
[2020-07-29] MEDS: BUDESONIDE/FORMETEROL FUMARATE 160/4.5 mcg INHALER IH SCH ×2 (09:54→21:46)
[2020-07-29] MEDS: CEFTRIAXONE 1 GM in DEXTROSE 5%-WATER - 50 ML IVPB SCH (09:54)
[2020-07-29] MEDS: ACETAMINOPHEN 325 MG TABLET (FP) PO PRN (11:34)
[2020-07-29] MEDS: DEXTROSE 5%-0.45% SALINE 1,000 ML IV SCH ×2 (11:35→23:44)
[2020-07-29] MEDS: traZODone HCL 100 MG TABLET (FP) PO SCH (21:39)
[2020-07-29] MEDS: ATORVASTATIN CA 40 MG TABLET (FP) PO SCH (21:40)
[2020-07-30 04:52] LABS: ARTERIAL BLD GAS O2 SATURATION 93.9 mmHg (95-98); ARTERIAL BLOOD GAS BASE EXCESS -3.5 mmol/L (-2-2); ARTERIAL BLOOD GAS PO2 69.2 mmHg (80-100); ARTERIAL BLOOD GAS pH 7.388 (7.350-7.450)
[2020-07-30 04:54] LABS: VENT MODE ST 20/16; VENT RATE 16
[2020-07-30] MEDS: INSULIN SLIDING SCALE (NOVOLOG) 1 VIAL SQ SCH ×4 (07:55→21:36)
[2020-07-30] MEDS: GABAPENTIN 300 MG CAPSULE PO SCH ×3 (07:55→21:27)
[2020-07-30] MEDS ORDERED: DEXTROSE 5%-WATER - 50 ML IVPB ONE (08:53)
[2020-07-30] MEDS ORDERED: cefTRIAXone SODIUM 1 GM VIAL ONE (08:53)
[2020-07-30] MEDS: DEXAMETHASONE SOD PHOSPHATE 4 MG/1 ML VIAL IVPUSH SCH (08:59)
[2020-07-30] MEDS: PANTOPRAZOLE 40 MG TABLET PO SCH (09:00)
[2020-07-30] MEDS: APIXABAN 5 MG TABLET PO SCH ×2 (09:00→21:27)
[2020-07-30] MEDS: ASCORBIC ACID 500 MG TABLET (FP) PO SCH ×2 (09:00→21:27)
[2020-07-30] MEDS: CEFTRIAXONE 1 GM in DEXTROSE 5%-WATER - 50 ML IVPB SCH (09:00)
[2020-07-30] MEDS: lamoTRIgine 100 MG TABLET PO SCH (09:00)
[2020-07-30] MEDS: CHOLECALCIFEROL (VIT D3) 1,000 UNIT (25 MCG) TABLET PO SCH (09:00)
[2020-07-30] MEDS: ZINC SULFATE 220 MG CAPSULE (FP) PO SCH (09:00)
[2020-07-30] MEDS: BUDESONIDE/FORMETEROL FUMARATE 160/4.5 mcg INHALER IH SCH ×2 (09:10→21:27)
[2020-07-30] MEDS: VENLAFAXINE HCL 75 MG E.R. CAPSULES PO SCH ×2 (11:40→21:27)
[2020-07-30] MEDS: DEXTROSE 5%-0.45% SALINE 1,000 ML IV SCH (14:25)
[2020-07-30 14:30] LABS: HEMATOCRIT 40.8 % (32.4-45.2); HEMOGLOBIN 13.3 GM/dL (10.7-15.3); MCH 27.2 pg (25.7-33.7); MCHC 32.5 g/dl (32.0-36.0); MEAN CELL VOLUME 83.7 fl (80-96); MEAN PLT VOLUME 8.4 fl (7.5-11.1); PLATELET COUNT 226 K/MM3 (134-434); RBC 4.88 M/mm3 (3.60-5.2); RDW 15.4 % (11.6-15.6); WHITE BLOOD COUNT 17.8 K/mm3 (4.0-10.0)
[2020-07-30 14:53] LABS: ALBUMIN 1.9 g/dl (3.4-5.0); BLOOD UREA NITROGEN 15.9 mg/dL (7-18); CALCIUM 7.8 mg/dL (8.5-10.1); MAGNESIUM 2.3 mg/dL (1.8-2.4)
[2020-07-30 14:56] LABS: CREATININE 0.5 mg/dL (0.55-1.3)
[2020-07-30 14:57] LABS: PHOSPHOROUS 2.8 mg/dL (2.5-4.9)
[2020-07-30 14:58] LABS: BILIRUBIN,TOTAL 0.3 mg/dL (0.2-1); TOT PROT 6.6 g/dl (6.4-8.2)
[2020-07-30 15:07] LABS: ERYTHROCYTE SEDIMENTATION RATE 78 mm/hr (0-30)
[2020-07-30] MEDS ORDERED: PT OWN MED DRAWER 7, Y5N ONE (21:00)
[2020-07-30] MEDS: traZODone HCL 100 MG TABLET (FP) PO SCH (21:27)
[2020-07-30] MEDS: ACETAMINOPHEN 325 MG TABLET (FP) PO PRN (21:28)
[2020-07-30] MEDS: ALBUTEROL SO4 HFA INHALER IH PRN (21:36)
[2020-07-31] MEDS: ACETAMINOPHEN 325 MG TABLET (FP) PO PRN (02:26)
[2020-07-31] MEDS: ALBUTEROL SO4 HFA INHALER IH PRN (03:45)
[2020-07-31] MEDS: DEXTROSE 5%-0.45% SALINE 1,000 ML IV SCH (03:45)
[2020-07-31] MEDS: GABAPENTIN 300 MG CAPSULE PO SCH (05:06)
[2020-07-31] MEDS: INSULIN SLIDING SCALE (NOVOLOG) 1 VIAL SQ SCH (06:07)
[2020-07-31 07:15] LABS: ARTERIAL BLD GAS O2 SATURATION 86.3 mmHg (95-98); ARTERIAL BLOOD GAS BASE EXCESS -5.3 mmol/L (-2-2); ARTERIAL BLOOD GAS PO2 52.8 mmHg (80-100); ARTERIAL BLOOD GAS pH 7.358 (7.350-7.450)
[2020-07-31 07:18] LABS: ALLENS TEST POSITIVE
[2020-07-31 07:19] LABS: VENT MODE S/T; VENT RATE 16
[2020-07-31] MEDS: DEXAMETHASONE SOD PHOSPHATE 4 MG/1 ML VIAL IVPUSH SCH (09:25)
[2020-07-31] MEDS ORDERED: ALBUTEROL SO4 HFA INHALER IH PRN (09:36)
[2020-07-31 09:37] VITALS: BP 118/97; TEMP 97.4
[2020-07-31] MEDS ORDERED: ALBUTEROL SO4 0.083% IH SOL 2.5 MG/3 ML VIAL.NEB. NEB ONE (09:39)
[2020-07-31] MEDS ORDERED: BUDESONIDE/FORMETEROL FUMARATE 160/4.5 mcg INHALER IH SCH (10:00)
[2020-07-31] MEDS ORDERED: BUDESONIDE 0.5 MG/2 ML INH SUSP VIAL NEB ONE (10:00)
[2020-07-31] MEDS ORDERED: ROCURONIUM BROMIDE 50 MG/5 ML VIAL IV ONE (10:11)
[2020-07-31] MEDS ORDERED: MUPIROCIN 2% TOPICAL OINTMENT FOR DECOLONIZATION NS SCH (10:15)
[2020-07-31] MEDS: VENLAFAXINE HCL 75 MG E.R. CAPSULES PO SCH (10:49)
[2020-07-31] MEDS: ZINC SULFATE 220 MG CAPSULE (FP) PO SCH (10:49)
[2020-07-31] MEDS: APIXABAN 5 MG TABLET PO SCH (10:49)
[2020-07-31] MEDS: ASCORBIC ACID 500 MG TABLET (FP) PO SCH (10:50)
[2020-07-31] MEDS: CHOLECALCIFEROL (VIT D3) 1,000 UNIT (25 MCG) TABLET PO SCH (10:50)
[2020-07-31] MEDS: PANTOPRAZOLE 40 MG TABLET PO SCH (10:50)
[2020-07-31 21:38] VITALS: PULSE 139
[2020-07-31] MEDS ORDERED: CHLORHEXIDINE GLUCONATE 4% CLEANSER FOR DECOLONIZATION TP SCH (22:00)
== END 2020-07-31 10:46 | disposition expired | DRG 208 ==
LOC: JER 22:30 → JERBED 07-20 03:53 → J4S 07-20 11:59 → JICU 07-31 10:28
PROVIDERS: ADMIT Internal Medicine; ATTEND Internal Medicine
PROC: 8E0ZXY6 Isolation (ICD-10-PCS; 2020-07-19)
PROC: XW13325 Transfusion of Convalescent Plasma (Nonautologous) into Peripheral Vein, Percutaneous Approach, New Technology Group 5 (ICD-10-PCS; 2020-07-22)
PROC: XW033E5 Introduction of Remdesivir Anti-infective into Peripheral Vein, Percutaneous Approach, New Technology Group 5 (ICD-10-PCS; 2020-07-22)
PROC: 0BH17EZ Insertion of Endotracheal Airway into Trachea, Via Natural or Artificial Opening (ICD-10-PCS; principal; 2020-07-31)
PROC: 5A1935Z Respiratory Ventilation, Less than 24 Consecutive Hours (ICD-10-PCS; 2020-07-31)
DX: U07.1 COVID-19 (principal); J12.89 Other viral pneumonia; J96.01 Acute respiratory failure with hypoxia; F31.9 Bipolar disorder, unspecified; E78.5 Hyperlipidemia, unspecified; K58.9 Irritable bowel syndrome, unspecified; M81.0 Age-related osteoporosis without current pathological fracture; J44.9 Chronic obstructive pulmonary disease, unspecified; J45.909 Unspecified asthma, uncomplicated; I10 Essential (primary) hypertension; G43.909 Migraine, unspecified, not intractable, without status migrainosus; E11.51 Type 2 diabetes mellitus with diabetic peripheral angiopathy without gangrene; R55 Syncope and collapse; K59.09 Other constipation; M54.5 Low back pain; E03.9 Hypothyroidism, unspecified; J32.9 Chronic sinusitis, unspecified; K21.9 Gastro-esophageal reflux disease without esophagitis; E86.0 Dehydration; I95.9 Hypotension, unspecified; K76.0 Fatty (change of) liver, not elsewhere classified; R74.01 Elevation of levels of liver transaminase levels
CPT/HCPCS: 36415; 36430; 36600; 70450-TC; 71045-TC-FY; 71275-TC; 72125-TC; 80048; 80053; 81003; 82248; 82550; 82553; 82728; 82803; 82962; 83605; 83615; 83735; 84100; 84484; 85025; 85027; 85379; 85610; 85651; 85730; 86140; 86850; 86900; 86901; 87040; 87086; 93005; 93010; 94660; 99285-25; C9399; C9803; J0131; P9017; Q9967; U0003